=== PATIENT | male | born 1950 | race Caucasian/White ===

== ENCOUNTER → 2018-03-29 11:56 | Outpatient (CLI) | payer MEDICARE, SELFPAY ==
[2018-03-29 14:09] LABS: Absolute Lymphocyte Count 1.31 X10^3/ul (0.83-4.51); Basophil# 0.06 X10^3/uL; Basophil% 0.5 % (0-1); Eosinophil# 0.25 X10^3/uL; Lymphocyte # 1.31 X10^3/ul (4.0); Lymphocyte % 10.6 % (19-41); Mean Corp Hgb Conc 34.1 g/gl (32-36); Mean Corpuscular Hgb 32.4 pg (27.0-32.0); Monocyte% 13.7 % (0-10); Neutrophil # 9.04 X10^3/uL (2.7-7.7); Platelet Count 223 K/mm3 (150-450); RBC Distribution Width CV 12.4 % (11.6-14.6); RBC Distribution Width SD 42.7 fl (35.1-43.9); Red Blood Count 4.63 M/mm3 (4.6-6.2); White Blood Count 12.4 K/mm3 (4.4-11.0)
[2018-03-29 14:10] LABS: Differential Indicated SCAN CRITERIA MET; POSITIVE COUNT NO; POSITIVE DIFFERENTIAL YES; POSITIVE MORPHOLOGY NO
[2018-03-29 14:22] LABS: ALB/GLOB Ratio 0.9 RATIO (0.9-2.4); AST(SGOT) 18 U/L (15-37); Alanine Aminotransfer ALT/SGPT 20 U/L (16-61); Albumin, Serum 3.6 g/dL (3.2-5.0); Alkaline Phosphatase 58 U/L (45-117); Anion Gap 8 (5-15); BUN 14 mg/dL (7-18); BUN/Creat Ratio 13.6 RATIO (10-20); Calcium,Total 9.3 mg/dL (8.5-10.1); Chloride 98 mmol/L (98-107); Cholesterol 96 mg/dL (200); Creatinine, Serum 1.03 mg/dL (0.70-1.30); EST Glomerular Filtration Rate 76 mL/min (>60); Est Glom Filt Rate - Afr Amer 92 mL/min (>60); Glucose 138 mg/dL (74-106); High Density Lipoprotein 33 mg/dL; Potassium 4.2 mmol/L (3.5-5.1); Protein, Total 7.6 g/dL (6.4-8.2); Sodium Level 135 mmol/L (136-145); Thyroid Stim Hormone (TSH) 2.92 uIU/mL (0.358-3.74); Triglycerides 85 mg/dL; Very Low Density Lipoprotein 17 mg/dL (5-40)
[2018-03-30 12:57] LABS: Pathologist Review Reviewed
== END ==
PROVIDERS: Family Provider Family Medicine; PCP Family Medicine; Visit Provider Family Medicine
DX: E78.00 Pure hypercholesterolemia, unspecified (principal); E11.9 Type 2 diabetes mellitus without complications; E03.9 Hypothyroidism, unspecified; J06.9 Acute upper respiratory infection, unspecified
CPT/HCPCS: 36415; 80053; 80061; 84443; 85025

== ENCOUNTER → 2018-11-04 09:02 | Outpatient (CLI) | payer MEDICARE, OTHER, SELFPAY ==
[2018-11-04 10:20] LABS: Hematocrit 45.8 % (40-54); Hemoglobin 15.6 g/dl (13.0-16.5); Mean Corp Hgb Conc 34.1 g/gl (32-36); Mean Corpuscular Hgb 32.4 pg (27.0-32.0); Mean Corpuscular Volume 95.2 fL (80-94); Platelet Count 241 K/mm3 (150-450); RBC Distribution Width CV 12.3 % (11.6-14.6); RBC Distribution Width SD 41.9 fl (35.1-43.9); Red Blood Count 4.81 M/mm3 (4.6-6.2); White Blood Count 7.4 K/mm3 (4.4-11.0)
[2018-11-04 10:23] LABS: Scan Indicated on CBC? Y/N NO
[2018-11-04 10:33] LABS: Hemoglobin A1c 5.8 % (4.2-6.3)
[2018-11-04 10:46] LABS: Cholesterol 102 mg/dL (200); High Density Lipoprotein 33 mg/dL; Thyroid Stim Hormone (TSH) 4.59 uIU/mL (0.358-3.74); Triglycerides 66 mg/dL; Very Low Density Lipoprotein 13 mg/dL (5-40)
[2018-11-04 10:51] LABS: Vitamin D,25 Hydroxy 56.5 ng/mL (29.95-100.01)
== END ==
PROVIDERS: Family Provider Family Medicine; PCP Family Medicine; Visit Provider Family Medicine
DX: E11.9 Type 2 diabetes mellitus without complications (principal); E78.00 Pure hypercholesterolemia, unspecified; E03.9 Hypothyroidism, unspecified
CPT/HCPCS: 36415; 80061; 82306; 83036; 84443; 85027

== ENCOUNTER → 2019-05-02 | Outpatient (CLI) | payer MEDICARE, SELFPAY ==
[2019-05-02 17:54] LABS: ALB/GLOB Ratio 1.2 RATIO (0.9-2.4); AST(SGOT) 23 U/L (15-37); Alanine Aminotransfer ALT/SGPT 29 U/L (16-61); Albumin, Serum 3.9 g/dL (3.2-5.0); Alkaline Phosphatase 53 U/L (45-117); Anion Gap 7 (5-15); BUN 11 mg/dL (7-18); BUN/Creat Ratio 11.7 RATIO (10-20); Calcium,Total 9.3 mg/dL (8.5-10.1); Chloride 107 mmol/L (98-107); Cholesterol 99 mg/dL (200); Creatinine, Serum 0.94 mg/dL (0.70-1.30); EST Glomerular Filtration Rate 85 mL/min (>60); Est Glom Filt Rate - Afr Amer 102 mL/min (>60); Globulin 3.3 g/dL (2.2-4.2); Glucose 109 mg/dL (74-106); High Density Lipoprotein 37 mg/dL; Potassium 4.6 mmol/L (3.5-5.1); Protein, Total 7.2 g/dL (6.4-8.2); Sodium Level 140 mmol/L (136-145); Triglycerides 99 mg/dL; Very Low Density Lipoprotein 20 mg/dL (5-40)
[2019-05-02 18:05] LABS: Microalbumin,Random Urine 5.7 mg/L (NO RANGE EST.); Microalbumin:Creatinine Ratio 6.3 mg/g CRE (<30 mg/g CRE)
== END | disposition home or self-care (01) ==
PROVIDERS: Family Provider Family Medicine; PCP Family Medicine; Visit Provider Family Medicine
DX: I10 Essential (primary) hypertension (principal); E78.00 Pure hypercholesterolemia, unspecified; E88.81 Metabolic syndrome and other insulin resistance
CPT/HCPCS: 36415; 80053; 80061; 82043; 82570

== ENCOUNTER → 2019-11-14 11:39 | Outpatient (CLI) | payer MEDICARE, SELFPAY ==
[2019-11-14 13:53] LABS: Absolute Lymphocyte Count 1.89 X10^3/uL (0.83-4.51); Absolute Neutrophil Count 5.9 X10^3/uL (2.0-7.7); Basophil# 0.13 X10^3/uL; Basophil% 1.4 % (0-1); Eosinophil# 0.28 X10^3/uL; Eosinophils% 3.1 % (0-5); Hematocrit 49.3 % (40-54); Hemoglobin 16.2 g/dL (13.0-16.5); Lymphocyte # 1.89 X10^3/ul (4.0); Lymphocyte % 20.9 % (19-41); Mean Corp Hgb Conc 32.9 g/dL (32-36); Mean Corpuscular Hgb 31.5 pg (27.0-32.0); Mean Corpuscular Volume 95.9 fL (80-94); Mean Platelet Vol. 9.8 fl (6.2-12.0); Monocyte# 0.82 X10^3/uL; Monocyte% 9.1 % (0-10); NRBC Flagged by Analyzer 0 % (0-5); Neutrophil # 5.89 X10^3/uL (2.7-7.7); Neutrophil % 65.2 % (47-70); Platelet Count 244 K/mm3 (150-450); RBC Distribution Width CV 12.4 % (11.6-14.6); RBC Distribution Width SD 44.2 fl (35.1-43.9); Red Blood Count 5.14 M/mm3 (4.6-6.2)
[2019-11-14 14:13] LABS: Vitamin B12 1051 pg/mL (211-911)
[2019-11-14 14:15] LABS: ALB/GLOB Ratio 1.1 RATIO (0.9-2.4); AST(SGOT) 19 U/L (15-37); Alanine Aminotransfer ALT/SGPT 37 U/L (16-61); Albumin, Serum 4.2 g/dL (3.2-5.0); Alkaline Phosphatase 54 U/L (45-117); Anion Gap 2 (5-15); BUN 22 mg/dL (7-18); Calcium,Total 10.5 mg/dL (8.5-10.1); Chloride 105 mmol/L (98-107); Creatinine, Serum 1.22 mg/dL (0.70-1.30); EST Glomerular Filtration Rate 62 mL/min (>60); Est Glom Filt Rate - Afr Amer 75 mL/min (>60); Globulin 3.7 g/dL (2.2-4.2); Glucose 97 mg/dL (74-106); PSA,Total - Annual Screen 0.79 ng/mL (0.00-4.00); Potassium 4.4 mmol/L (3.5-5.1); Protein, Total 7.9 g/dL (6.4-8.2); Sodium Level 137 mmol/L (136-145); T4 Free Direct 1.06 ng/dL (0.76-1.46); Thyroid Stim Hormone (TSH) 8.86 uIU/mL (0.358-3.74)
[2019-11-14 14:16] LABS: Microalbumin,Random Urine 14.3 mg/L (NO RANGE EST.); Microalbumin:Creatinine Ratio 5.4 mg/g CRE (<30 mg/g CRE)
[2019-11-15 14:21] LABS: Vitamin D,25 Hydroxy 61.5 ng/mL (29.95-100.01)
[2019-11-15 14:28] LABS: Magnesium 2.1 mg/dL (1.6-2.6)
[2019-11-15 14:37] LABS: PTHIN 20.3 pg/mL (18.4-80.1)
== END ==
PROVIDERS: Family Provider Family Medicine; PCP Family Medicine; Visit Provider Family Medicine
DX: Z00.00 Encounter for general adult medical examination without abnormal findings (principal); I10 Essential (primary) hypertension; R53.83 Other fatigue; E03.9 Hypothyroidism, unspecified; E83.52 Hypercalcemia; R94.6 Abnormal results of thyroid function studies; Z80.7 Family history of other malignant neoplasms of lymphoid, hematopoietic and related tissues
CPT/HCPCS: 80053; 82043; 82306; 82570; 82607; 83735; 83970; 84153; 84439; 84443; 84481; 85025; G0103

== ENCOUNTER → 2020-05-14 | Outpatient (CLI) | payer MEDICARE, OTHER, SELFPAY ==
[2020-05-14 13:55] LABS: ALB/GLOB Ratio 1.1 RATIO (0.9-2.4); AST(SGOT) 16 U/L (15-37); Alanine Aminotransfer ALT/SGPT 23 U/L (16-61); Albumin, Serum 3.9 g/dL (3.2-5.0); Alkaline Phosphatase 54 U/L (45-117); Anion Gap 6 (5-15); BUN 18 mg/dL (7-18); Calcium,Total 9.5 mg/dL (8.5-10.1); Chloride 103 mmol/L (98-107); Creatinine, Serum 0.95 mg/dL (0.70-1.30); EST Glomerular Filtration Rate 83 mL/min (>60); Est Glom Filt Rate - Afr Amer 100 mL/min (>60); Globulin 3.5 g/dL (2.2-4.2); Glucose 103 mg/dL (74-106); Protein, Total 7.4 g/dL (6.4-8.2); Sodium Level 135 mmol/L (136-145); Thyroid Stim Hormone (TSH) 6.59 uIU/mL (0.358-3.74)
[2020-05-14 14:08] LABS: Microalbumin,Random Urine 8.6 mg/L (NO RANGE EST.)
== END | disposition home or self-care (01) ==
LOC: MFPLAB 10:50
PROVIDERS: PCP Family Medicine; Visit Provider Family Medicine
DX: I10 Essential (primary) hypertension (principal); E03.9 Hypothyroidism, unspecified
CPT/HCPCS: 36415; 80053; 82043; 82570; 84443

== ENCOUNTER → 2020-07-11 13:52 | Outpatient (CLI) | payer MEDICARE, OTHER, SELFPAY ==
[2020-07-11 18:16] LABS: T4 Free Direct 1.27 ng/dL (0.76-1.46); Thyroid Stim Hormone (TSH) 4.15 uIU/mL (0.358-3.74)
== END ==
PROVIDERS: PCP Family Medicine; Referring Provider Family Medicine; Visit Provider Family Medicine
DX: E03.9 Hypothyroidism, unspecified (principal)
CPT/HCPCS: 36415; 84439; 84443

== ENCOUNTER → 2020-11-22 14:45 | Outpatient (CLI) | payer MEDICARE, OTHER, SELFPAY ==
[2020-11-22 18:54] LABS: T4 Free Direct 1.29 ng/dL (0.76-1.46); T4 Total, Thyroxin 9.4 ug/dL (4.5-12.1); Thyroid Stim Hormone (TSH) 1.87 uIU/mL (0.358-3.74)
== END ==
PROVIDERS: PCP Family Medicine; Referring Provider Family Medicine; Visit Provider Family Medicine
DX: E03.9 Hypothyroidism, unspecified (principal)
CPT/HCPCS: 36415; 84436; 84439; 84443

== ENCOUNTER → 2020-12-12 14:59 | Outpatient (CLI) | payer MEDICARE, OTHER, SELFPAY ==
--- NOTE | 2020-12-12 15:02 | CT_ITS ---
STUDY: LOW DOSE CT LUNG CANCER SCREENING REASON FOR EXAM: Male, 70 years old. LUNG CANCER SCREENING. 1PPD 50 YEARS RADIATION DOSAGE (If Supplied By Facility): CTDIvol = ( 3.40 ) mGy, DLP = ( 109.34 ) mGycm TECHNIQUE: No contrast was administered. Low dose technique was utilized (average mAS-38 and kVp 120). 1.25 mm axial source images with a slice interval of 1.25-mm were reconstructed in lung windows. 2.5 mm axial source images with a slice interval of 2.5-mm were reconstructed in lung windows. 5.0 mm axial source images with a slice interval of 5.0-mm were reconstructed in soft tissue windows. Nodule measured using lung windows on PACS and/or independent workstation with automated measurement of minimum and maximum diameter. Nodule measurement reported as average diameter rounded to the nearest whole number. Growth is defined as an increase ins size of greater than 1.5 mm. COMPARISON: None. NODULES: There is a 1.2 cm x 0.7 cm slightly irregular nodule in the posterior segment of the right lower lobe. A linear scar is seen adjacent to this nodule superiorly and anteriorly. Emphysema: Hyperinflation. There is evidence of emphysematous changes in both lungs slightly more prominent in the upper lobes. Minimal linear scarring in the right middle lobe as well as the lingular segment of the left upper lobe. Endobronchial lesion: None Aorta: Atherosclerotic plaque formation of the aortic arch. Coronary arteries: Coronary artery calcification. Mediastinal nodes: Small benign appearing mediastinal lymph nodes. Other chest and abdominal findings: CT/Low Dose CT Lung Screening IMPRESSION: Lung-RADS category 4B - Chest CT with or without contrast, PET/CT and/or tissue sampling can be obtained depending on the probability of malignancy and comorbidities. IMPORTANT NOTES FOR USE: ACR Lung-RADS Version 1.0 Assessment Categories Release Date: March 06, 2014 Category: Coded 0-4 bases on nodule(s) with highest degree of suspicion. Negative screen is defined as categories 1 and 2; a positive screen is defined as categories 3 and 4. Category 3 and 4A nodules that are unchanged on interval CT should be coded as category 2, and individuals returned to screening in 12 months. Category 4X: Category 3 or 4 nodules with additional imaging findings that increase the suspicion of lung cancer, such as spiculation, GGN that doubles in size in 1 year, enlarged lymph notes, etc. Category Modifiers: S (significant finding unrelated to lung cancer) and C (prior history of treated lung cancer) may be added to the 0-4 Lung-RADS Electronically Signed: Michel Herrmann MD at 15:27 EST , Service support ,
== END ==
PROVIDERS: PCP Family Medicine; Referring Provider Family Medicine; Visit Provider Family Medicine
DX: F17.210 Nicotine dependence, cigarettes, uncomplicated (principal); Z12.2 Encounter for screening for malignant neoplasm of respiratory organs
CPT/HCPCS: 71271

== ENCOUNTER → 2021-01-22 14:56 | Outpatient (CLI) | payer MEDICARE, OTHER, SELFPAY ==
--- NOTE | 2021-01-22 15:00 | PET_ITS ---
EXAMINATION: FDG PET/CT INDICATIONS: A 70-year-old male with reported history of pulmonary nodularity. COMPARISON EXAMINATION: CT of the chest report dated 12/12/20 (Synopsis CT of the chest report dated 12/12/20) NON-INDEX LESION SIZE SUV INTERPRETATION Left axilla 1.2 Quantitative criteria for viable neoplasm are not fulfilled TECHNIQUE: Following the intravenous administration of 12.61 mCi of F-18 deoxyglucose via the left antecubital fossa, multiplanar image acquisitions of the neck, chest, abdomen and pelvis to level of mid thigh, obtained at one hour post radiopharmaceutical administration contemporaneously interpreted with the current CT of the neck, chest, abdomen and pelvis to level of mid thigh, dated 01/22/[address] of the chest report dated 12/12/20 reveal: SERUM GLUCOSE LEVEL: 120 mg/dl. HEIGHT: 71 inches. WEIGHT: 190 lbs. FINDINGS: 1. There is no quantitative scintigraphic evidence of abnormal increased glucose metabolism within the context of the right lower lung-right lower lobe to correlate with structural changes noted on review of CT of the thorax dated 01/22/21. 2. Normal physiologic distribution of the radiopharmaceutical is apparent in the hepatic (2.7) and splenic parenchyma, both renal units, bladder and visualized intestinal tract. The visualized portion of the cerebral cortical-subcortical structures demonstrate symmetric and preserved glucose metabolism. Diffuse radiopharmaceutical concentration is noted in all four quadrants of the abdomen and pelvis. Mild increased FDG concentration is observed in the left axilla rendering a calculated maximal standard uptake value of 1.2. The corresponding soft tissue density demonstrates fatty hilus. Quantitative criteria for viable neoplasm are not fulfilled. Facilitated uptake is noted in the left ventricular myocardium commensurate with the [place]. Pertinent CT findings are as follows: CHEST: There are no additional parenchymal densities-nodules defined in the right and left hemithorax. Bilateral axillary soft tissue densities are ametabolic. There is atherosclerotic calcification defined in the thoracic aorta without evidence of dilatation-aneurysm formation. Coronary arterial calcification is defined. Right and left axillary and mediastinal soft tissue is ametabolic. ABDOMEN AND PELVIS: There is atherosclerotic calcification defined in the abdominal aorta without evidence of dilatation-aneurysm formation. Pelvic arterial calcification is observed. Cholelithiasis encountered. Colonic diverticulosis is noted without evidence of diverticulitis. Right and left inguinal soft tissue densities with fatty hilus are ametabolic. Calcified phlebolith formation is noted in the bilateral lower hemipelvis. SKELETAL: Degenerative changes are noted in the cervical, thoracic and lumbar spine without evidence of increased radiopharmaceutical concentration. There is diffuse demineralization identified throughout the axial skeletal structures. PET/PET/CT Tumor Base -Thigh Init IMPRESSION: 1. NEGATIVE EXAMINATION. There is no quantitative scintigraphic evidence of abnormal increased glucose metabolism within the context of the right lower lung-right lower lobe to correlate with structural changes noted on review of CT of the thorax dated 01/22/21. 2. Anatomic stability may be ensured in the nonglucose avid right lower lung-right lower lobe parenchymal density with repeat CT of the thorax in 3-6 months. (Aidan, Seminars in Thoracic and Cardiovascular Surgery 14:292, 2002). 3. Facilitated radiopharmaceutical concentration observed in the left axilla does not fulfill quantitative criteria for viable neoplasm. Electronic Signature Noah Randhawa D.O. Accurate Quantification of SUVs for this report are calculated using the exclusive [employer]? Technology.??Exclusive [place] Patent [employer]? Technology ([place] Patent No. [phone] [id number]). Electronically Signed: Noah Randhawa DO at 15:46 EDT Tel , Service support ,
== END ==
PROVIDERS: PCP Family Medicine; Referring Provider Internal Medicine Pulmonary Disease; Visit Provider Internal Medicine Pulmonary Disease
DX: R91.1 Solitary pulmonary nodule (principal)
CPT/HCPCS: 78815; A9552

== ENCOUNTER → 2021-05-24 10:13 | Outpatient (CLI) | payer MEDICARE, OTHER, SELFPAY ==
[2021-05-24 12:00] LABS: Absolute Lymphocyte Count 1.53 X10^3/uL (0.83-4.51); Absolute Neutrophil Count 4.8 X10^3/uL (2.0-7.7); Basophil# 0.13 X10^3/uL; Basophil% 1.7 % (0-1); Eosinophil# 0.37 X10^3/uL; Eosinophils% 4.8 % (0-5); Hematocrit 46.6 % (40-54); Hemoglobin 15.4 g/dL (13.0-16.5); Lymphocyte # 1.53 X10^3/ul (0.83-4.51); Mean Corpuscular Hgb 31.9 pg (27.0-32.0); Mean Corpuscular Volume 96.5 fL (80-94); Mean Platelet Vol. 9.7 fl (6.2-12.0); Monocyte# 0.74 X10^3/uL; Monocyte% 9.7 % (0-10); NRBC Flagged by Analyzer 0 % (0-5); Neutrophil # 4.84 X10^3/uL (2.7-7.7); Neutrophil % 63.3 % (47-70); Platelet Count 255 K/mm3 (150-450); RBC Distribution Width CV 12.1 % (11.6-14.6); RBC Distribution Width SD 43.6 fl (35.1-43.9); Red Blood Count 4.83 M/mm3 (4.6-6.2); White Blood Count 7.7 K/mm3 (4.4-11.0)
[2021-05-24 12:24] LABS: Microalbumin,Random Urine 5.5 mg/L (NO RANGE EST.); Microalbumin:Creatinine Ratio 6.5 mg/g CRE (<30 mg/g CRE)
[2021-05-24 12:30] LABS: ALB/GLOB Ratio 1.1 RATIO (0.9-2.4); AST(SGOT) 22 U/L (15-37); Alanine Aminotransfer ALT/SGPT 30 U/L (16-61); Albumin, Serum 3.7 g/dL (3.2-5.0); Alkaline Phosphatase 55 U/L (45-117); Anion Gap 4 (5-15); BUN 14 mg/dL (7-18); BUN/Creat Ratio 13.3 RATIO (10-20); Calcium,Total 9.2 mg/dL (8.5-10.1); Chloride 103 mmol/L (98-107); Creatinine, Serum 1.05 mg/dL (0.70-1.30); EST Glomerular Filtration Rate 74 mL/min (>60); Est Glom Filt Rate - Afr Amer 89 mL/min (>60); Globulin 3.5 g/dL (2.2-4.2); Glucose 124 mg/dL (74-106); Potassium 4.4 mmol/L (3.5-5.1); Protein, Total 7.2 g/dL (6.4-8.2); Sodium Level 135 mmol/L (136-145); T4 Free Direct 1.21 ng/dL (0.76-1.46); Thyroid Stim Hormone (TSH) 2.13 uIU/mL (0.358-3.74)
== END ==
PROVIDERS: PCP Family Medicine; Visit Provider Family Medicine
DX: I10 Essential (primary) hypertension (principal); E03.9 Hypothyroidism, unspecified
CPT/HCPCS: 36415; 80053; 82043; 82570; 84439; 84443; 85025

== ENCOUNTER 2021-11-28 11:13 | Outpatient (CLI) | payer MEDICARE, OTHER, SELFPAY ==
[2021-11-28 12:18] LABS: Absolute Lymphocyte Count 1.51 X10^3/uL (0.83-4.51); Absolute Neutrophil Count 4.2 X10^3/uL (2.0-7.7); Basophil# 0.11 X10^3/uL; Basophil% 1.6 % (0-1); Eosinophil# 0.25 X10^3/uL; Eosinophils% 3.7 % (0-5); Hematocrit 45.5 % (40-54); Hemoglobin 15.3 g/dL (13.0-16.5); Lymphocyte # 1.51 X10^3/ul (0.83-4.51); Lymphocyte % 22.2 % (19-41); Mean Corp Hgb Conc 33.6 g/dL (32-36); Mean Corpuscular Hgb 31.8 pg (27.0-32.0); Mean Corpuscular Volume 94.6 fL (80-94); Mean Platelet Vol. 9.5 fl (6.2-12.0); Monocyte# 0.69 X10^3/uL; Monocyte% 10.1 % (0-10); NRBC Flagged by Analyzer 0 % (0-5); Neutrophil # 4.21 X10^3/uL (2.7-7.7); Platelet Count 226 K/mm3 (150-450); RBC Distribution Width CV 12.3 % (11.6-14.6); Red Blood Count 4.81 M/mm3 (4.6-6.2); White Blood Count 6.8 K/mm3 (4.4-11.0)
[2021-11-28 12:59] LABS: Cholesterol 120 mg/dL (200); High Density Lipoprotein 37 mg/dL; Thyroid Stim Hormone (TSH) 7.63 uIU/mL (0.358-3.74); Triglycerides 61 mg/dL; Very Low Density Lipoprotein 12 mg/dL (5-40)
[2021-11-28 13:08] LABS: Hemoglobin A1c 5.4 % (3.8-5.6)
[2021-11-28 16:09] LABS: Microalbumin,Random Urine 12.3 mg/L (NO RANGE EST.); Microalbumin:Creatinine Ratio 6.2 mg/g CRE (<30 mg/g CRE)
== END 2021-11-28 23:59 | disposition short-term general hospital (02) ==
LOC: MFPLAB 11:13
PROVIDERS: PCP Family Medicine; Referring Provider Family Medicine; Visit Provider Family Medicine
DX: J43.9 Emphysema, unspecified (principal); E88.81 Metabolic syndrome and other insulin resistance; E03.9 Hypothyroidism, unspecified; E78.00 Pure hypercholesterolemia, unspecified; I10 Essential (primary) hypertension
CPT/HCPCS: 36415; 80061; 82043; 82570; 83036; 84443; 85025

== ENCOUNTER 2022-05-27 12:10 | Outpatient (CLI) | payer MEDICARE, OTHER, SELFPAY ==
[2022-05-27 12:14] LABS: Bacteria 0 SEEN /hpf (None Seen); Mucous, Urine 0 SEEN /hpf (<or=2+); Red Blood Cells-Urine 0 SEEN /hpf (0-5); Squamous Epithelial Cells - UA 0 SEEN /hpf (0-5); White Blood Cells 0 SEEN /hpf (0-5)
[2022-05-27 15:08] LABS: Color, Urine Yellow (Yellow); Glucose, Dipstick Normal (Normal); Ketone-Dipstick 5 mg/dl (Negative); Leukocyte Esterase-Dipstick 25 /ul (Negative); Nitrite-Dipstick Negative (Negative); Occult Blood-Urine Negative /ul (Negative); Protein-Dipstick Negative (Negative); Urine Bilirubin Dipstick Negative (Negative); Urine Clarity Clear (Clear); Urine Urobilinogen Normal (Normal)
[2022-05-27 16:05] LABS: ALB/GLOB Ratio 1.1 RATIO (0.9-2.4); AST(SGOT) 15 U/L (15-37); Alanine Aminotransfer ALT/SGPT 24 U/L (16-61); Albumin, Serum 3.7 g/dL (3.2-5.0); Alkaline Phosphatase 51 U/L (45-117); Anion Gap 5 (5-15); BUN 19 mg/dL (7-18); BUN/Creat Ratio 19.4 RATIO (10-20); Calcium,Total 9.9 mg/dL (8.5-10.1); Chloride 105 mmol/L (98-107); Creatinine, Serum 0.98 mg/dL (0.70-1.30); EST Glomerular Filtration Rate 79 mL/min (>60); Est Glom Filt Rate - Afr Amer 96 mL/min (>60); Globulin 3.4 g/dL (2.2-4.2); Glucose 109 mg/dL (74-106); PSA,Total- Diagnostic 0.98 ng/mL (0.0-4.0); Protein, Total 7.1 g/dL (6.4-8.2); Sodium Level 140 mmol/L (136-145); T4 Free Direct 1.55 ng/dL (0.76-1.46); Thyroid Stim Hormone (TSH) 0.61 uIU/mL (0.358-3.74)
== END 2022-05-27 23:59 | disposition home or self-care (01) ==
LOC: MFPLAB 12:11
PROVIDERS: PCP Family Medicine; Visit Provider Family Medicine
DX: E88.81 Metabolic syndrome and other insulin resistance (principal); N39.3 Stress incontinence (female) (male); E03.9 Hypothyroidism, unspecified
CPT/HCPCS: 36415; 80053; 81001; 84153; 84439; 84443

== ENCOUNTER → 2022-06-04 | Outpatient (CLI) | payer MEDICARE, OTHER, SELFPAY ==
--- NOTE | 2022-06-04 12:52 | US_ITS ---
EXAM: US RETROPERITONEAL LIMITED, RENAL CLINICAL INDICATION: start and continued male urge incotinance TECHNIQUE: Limited grayscale and color Doppler sonographic evaluation of the retroperitoneum was performed. This report was created using [employer] report Monitor technology. COMPARISON: None. FINDINGS: RIGHT KIDNEY: The right kidney measures 11.2 x 5.5 x 5.7 cm. The right renal cortex measures 1.1 cm. No hydronephrosis. No shadowing calculus. No perinephric collection is demonstrated. LEFT KIDNEY: The left kidney measures 10.9 x 5.7 x 4.5 cm. The left renal cortex measures 1.4 cm. No hydronephrosis. No shadowing calculus. No perinephric collection is demonstrated. BLADDER: The bladder wall measures 5 mm. There are bilateral ureteral jets. The bladder measures 4.1 x 4.4 x 6.6 cm. OTHER FINDINGS: The prostate gland measures 3.3 x 4.5 x 2.9 cm. US/Kidney and Bladder IMPRESSION: No acute findings in the retroperitoneum. Electronically Signed: Gallito Nixon MD at 3:13 EDT ,
== END | disposition home or self-care (01) ==
LOC: US 12:51
PROVIDERS: PCP Family Medicine; Referring Provider Family Medicine; Visit Provider Family Medicine
DX: N39.3 Stress incontinence (female) (male) (principal)
CPT/HCPCS: 76770

== ENCOUNTER → 2022-11-25 | Outpatient (CLI) | payer MEDICARE, OTHER, SELFPAY ==
[2022-11-25 18:39] LABS: Microalbumin,Random Urine 5.5 mg/L (NO RANGE EST.); Microalbumin:Creatinine Ratio 5.5 mg/g CRE (<30 mg/g CRE)
[2022-11-25 19:02] LABS: T4 Free Direct 1.37 ng/dL (0.76-1.46); Thyroid Stim Hormone (TSH) 0.67 uIU/mL (0.358-3.74)
== END | disposition home or self-care (01) ==
LOC: MFPLAB 14:11
PROVIDERS: PCP Family Medicine; Visit Provider Family Medicine
DX: I10 Essential (primary) hypertension (principal); E03.9 Hypothyroidism, unspecified
CPT/HCPCS: 36415; 82043; 82570; 84439; 84443

== ENCOUNTER → 2022-12-15 | Outpatient (CLI) | payer MEDICARE, OTHER, SELFPAY ==
--- NOTE | 2022-12-15 10:57 | US_ITS ---
INDICATION: incontinence EXAMINATION: Ultrasound US Post Void Residual Urine/Bladder TECHNIQUE: Mackenzie scale and color doppler imaging was performed of the urinary bladder. COMPARISON: June 04, 2022 FINDINGS: No stones, masses, or wall thickening. Pre-void volume is 34 mL. Post-void volume is 16 mL. The prostate gland is again visualized. There is partial visualization of what appears to be the prostate gland. There is nonvisualization of the ureteral jet. US/Post Void Residual Bladder IMPRESSION: Within normal limits appearing urinary bladder. Electronically Signed: Alley Jones MD at 12:18 EST ,
== END | disposition home or self-care (01) ==
LOC: US 10:50
PROVIDERS: PCP Family Medicine; Referring Provider Family Medicine; Visit Provider Family Medicine
DX: R32 Unspecified urinary incontinence (principal)
CPT/HCPCS: 51798

== ENCOUNTER → 2023-05-29 | Outpatient (CLI) | payer MEDICARE, OTHER, SELFPAY ==
[2023-05-29 11:45] LABS: Bacteria 0 SEEN /hpf (None Seen); Mucous, Urine 0 SEEN /hpf (<or=2+); Red Blood Cells-Urine 0 SEEN /hpf (0-5); Squamous Epithelial Cells - UA 0 SEEN /hpf (0-5); White Blood Cells 0 SEEN /hpf (0-5)
[2023-05-29 15:12] LABS: Absolute Lymphocyte Count 1.34 X10^3/uL (0.83-4.51); Absolute Neutrophil Count 4.4 X10^3/uL (2.0-7.7); Basophil# 0.09 X10^3/uL; Basophil% 1.3 % (0-1); Eosinophil# 0.17 X10^3/uL; Eosinophils% 2.5 % (0-5); Hematocrit 47.1 % (40-54); Hemoglobin 15.4 g/dL (13.0-16.5); Lymphocyte # 1.34 X10^3/ul (0.83-4.51); Lymphocyte % 19.8 % (19-41); Mean Corp Hgb Conc 32.7 g/dL (32-36); Mean Corpuscular Hgb 32.1 pg (27.0-32.0); Mean Corpuscular Volume 98.1 fL (80-94); Mean Platelet Vol. 10.1 fl (6.2-12.0); Monocyte# 0.72 X10^3/uL; Monocyte% 10.7 % (0-10); NRBC Flagged by Analyzer 0 % (0-5); Neutrophil % 65.1 % (47-70); Platelet Count 241 K/mm3 (150-450); RBC Distribution Width CV 12.2 % (11.6-14.6); RBC Distribution Width SD 44.4 fl (35.1-43.9); White Blood Count 6.8 K/mm3 (4.4-11.0)
[2023-05-29 15:42] LABS: Color, Urine Yellow (Yellow); Glucose, Dipstick Normal (Normal); Ketone-Dipstick Negative (Negative); Leukocyte Esterase-Dipstick Negative /ul (Negative); Nitrite-Dipstick Negative (Negative); Occult Blood-Urine Negative /ul (Negative); Protein-Dipstick Negative (Negative); Specific Gravity, Urine 1.015 (1.002-1.030); Urine Bilirubin Dipstick Negative (Negative); Urine Clarity Clear (Clear); Urine Urobilinogen Normal (Normal)
[2023-05-29 15:47] LABS: Hemoglobin A1c 5.6 % (3.8-5.6)
[2023-05-29 15:51] LABS: ALB/GLOB Ratio 1.2 RATIO (0.9-2.4); AST(SGOT) 16 U/L (15-37); Alanine Aminotransfer ALT/SGPT 22 U/L (16-61); Albumin, Serum 3.8 g/dL (3.2-5.0); Alkaline Phosphatase 63 U/L (45-117); Anion Gap 6 (5-15); BUN 17 mg/dL (7-18); BUN/Creat Ratio 18.2 RATIO (10-20); Calcium,Total 9.2 mg/dL (8.5-10.1); Chloride 103 mmol/L (98-107); Cholesterol 99 mg/dL (200); Creatinine, Serum 0.94 mg/dL (0.70-1.30); EST Glomerular Filtration Rate 84 mL/min (>60); Est Glom Filt Rate - Afr Amer 101 mL/min (>60); Globulin 3.3 g/dL (2.2-4.2); Glucose 102 mg/dL (74-106); High Density Lipoprotein 39 mg/dL; Potassium 4.5 mmol/L (3.5-5.1); Protein, Total 7.1 g/dL (6.4-8.2); Sodium Level 136 mmol/L (136-145); Thyroid Stim Hormone (TSH) 0.52 uIU/mL (0.358-3.74); Triglycerides 82 mg/dL; Very Low Density Lipoprotein 16 mg/dL (5-40)
== END | disposition home or self-care (01) ==
LOC: MFPLAB 10:23
PROVIDERS: PCP Family Medicine; Visit Provider Family Medicine
DX: J43.9 Emphysema, unspecified (principal); I10 Essential (primary) hypertension; E03.9 Hypothyroidism, unspecified; R39.15 Urgency of urination; E88.81 Metabolic syndrome and other insulin resistance
CPT/HCPCS: 36415; 80053; 80061; 81001; 83036; 84443; 85025

== ENCOUNTER → 2023-11-24 | Outpatient (CLI) | payer MEDICARE, OTHER, SELFPAY ==
--- OUTSIDE RECORDS SUMMARY | 2023-11-24 11:43 | XMS RPT_ITS | CCD ---
Author Name Unknown Address [address] [place] [address] Organization [facility] Care Team Providers Care [id number] Engineer Name Role Phone Ashok SANCHEZ, Betzy Boland Primary Care Provider GLADYS HAWTHORNE Attending Unavailable BETZY PULIDO Primary Care Unavailable GEORGIE JARRELL Referring Unavailable ALINA FERNANDES Attending Unavailable BETZY PULIDO Primary Care Unavailable BETZY PULIDO Primary Care Unavailable GEORGIE JARRELL Referring Unavailable Allergies Allergy Classification Reported Allergen(s) Allergy Type Date of Onset Reaction(s) Facility (3 sources) Penicillins; Translations: [PENICILLINS] Drug Allergy 06-11-2007 [facility] Work Phone: (1 source) Penicillins Drug Allergy 06-11-2007 [facility] Work Phone: Medications Completed/Discontinued Medications Medication Drug Class(es) Dates Sig (Normalized) Sig (Original) ascorbic acid 500 mg oral tablet (3 sources) Vitamin C Start: 06-11-2007 take 1 tablet by mouth once daily ascorbic acid (VITAMIN C) 500 mg ORAL Tab Take one(1) tablet daily. 0 0 06/11/2007 Active Problems Active Problems Problem Classification Problem Date Documented Da te Episodic/Chronic Coronary atherosclerosis and other heart disease (1 source) Calcification of coronary artery; Translations: [Atherosclerotic heart disease of solomon coronary artery without angina pectoris] Chronic Diabetes mellitus without complication (3 sources) Type 2 diabetes mellitus; Translations: [Type 2 diabetes mellitus without complications] Onset: 03-06-2011 11-04-2021 Chronic Essential hypertension (3 sources) Essential hypertension; Translations: [Essential (primary) hypertension] 01-07-2021 Chronic Other lower respiratory disease (6 sources) Multiple nodules of lung; Translations: [Other nonspecific abnormal finding of lung field] Onset: 02-06-2022 Episodic Other lower respiratory disease (1 source) Chronic cough; Translations: [Chronic cough] Episodic Other nutritional; endocrine; and metabolic disorders (3 sources) Obesity; Translations: [Obesity, unspecified] Onset: 03-06-2011 03-06-2011 Chronic Substance-related disorders (3 sources) Tobacco dependence, continuous; Translations: [Nicotine dependence, unspecified, with unspecified nicotine-induced disorders] Onset: 08-29-2022 Chronic Thyroid disorders (6 sources) Hypothyroidism; Translations: [Hypothyroidism, unspecified] Onset: 03-06-2011 11-04-2021 Chronic Past or Other Problems Problem Classification Problem Date Documented Da te Episodic/Chronic Other lower respiratory disease (1 source) Other nonspecific abnormal finding of lung field; Translations: [Lung nodules] Onset: 02-06-2022 Episodic Results Test Name Value Interpretation Reference Range Facil ity Vital Signs Date Time Vital Sign Value Performing Clinician Faci lity 08-29-2022 12:42-0400 Body weight 83.92 kg Gladys Hawthorne MD Work Phone: [facility] 08-29-2022 12:42-0400 Diastolic blood pressure 72 mm[Hg] Gladys Hawthorne MD Work Phone: [facility] 08-29-2022 12:42-0400 Heart rate 89 /min Gladys Hawthorne MD Work Phone: [facility] 08-29-2022 12:42-0400 SaO2% (BldA) [Mass fraction] 97 % Gladys Hawthorne MD Work Phone: [facility] 08-29-2022 12:42-0400 Systolic blood pressure 136 mm[Hg] Gladys Hawthorne MD Work Phone: [facility] 02-06-2022 14:47-0400 Body height 181.6 cm Alina Fernandes MD Work Phone: [facility] 02-06-2022 14:47-0400 Body weight 84.82 kg Alina Fernandes MD Work Phone: [facility] 02-06-2022 14:47-0400 Diastolic blood pressure 76 mm[Hg] Alina Fernandes MD Work Phone: [facility] 02-06-2022 14:47-0400 Heart rate 76 /min Alina Fernandes MD Work Phone: [facility] 02-06-2022 14:47-0400 SaO2% (BldA) [Mass fraction] 98 % Alina Fernandes MD Work Phone: [facility] 02-06-2022 14:47-0400 Systolic blood pressure 124 mm[Hg] Alina Fernandes MD Work Phone: [facility] Encounters Encounter Date Encounter Type Care Provider Facility Start: 08-29-2022 End: 08-29-2022 ambulatory GLADYS HAWTHORNE Facility:[facility] Start: 08-29-2022 End: 08-29-2022 Patient encounter procedure Gladys Hawthorne MD Work Phone: Pulmonary Medicine Procedures Date Procedure Procedure Detail Performing Clinician Start: 02-06-2022 Ct thorax w/o contra st material Georgie Jarrell PA-C Work Phone: Plan of Treatment Date Care Activity Detail Author Start: 02-06-2023 BP CONTROLLED (<130/80) BP CONTROLLE D (<130/80) [facility] Start: 02-06-2023 End: 09-28-2023 Ct thorax w/o contrast material CT CHEST WO IVCON Radiology Routine Lung nodules Expected: 02/06/2023, Expires: 09/28/2023 [facility] Work Phone: Immunizations Immunization Date Immunization Notes Care Provider Shawn butterfield 01-06-2021 COVID-19 vaccine (UNSPECIFIED) Ct (I-Stat) Work Phone: [facility] Work Phone: 08-07-2020 influenza, high dose seasonal, preservative-free Ct (I-Stat) Work Phone: [facility] Work Phone: 03-18-2011 pneumococcal polysaccharide vaccine, [address] (I-Stat) Work Phone: [facility] Work Phone: 02-26-2011 tetanus toxoid, redu pilar diphtheria toxoid, and acellular pertussis vaccine, adsorbed Ct (I-Stat) Work Phone: [facility] Work Phone: 09-21-2006 influenza virus vacc ine, unspecified formulation Ct (I-Stat) Work Phone: [facility] Payers Date Payer Category Payer Medicare [id number] 2019 Private Health Insurance [employer] A ETNA MEDICARE SUPPLEMENT [id number] 2019-Present [phone] [address] [address] [place] [address] Indemnity [id number] 2019 Private Health Insurance [employer] A ETNA MEDICARE SUPPLEMENT [id number] 2019-Present [phone] [address] [address] [place] [address] Indemnity [id number] 2013 Medicare MEDICARE MEDICAR E A AND B [id number] 2013-Present [phone] [place] [address] Medicare [id number] 2013 Medicare MEDICARE MEDICAR E A AND B [id number] 2013-Present [phone] [place] [address] Medicare [id number] 2013 Medicare [id number] Social History Date Type Detail Facility Start: 1970 [facility] Start: 1970 History of tobacco use Cigarette Smo ker [facility] Start: 02-06-2022 End: 08-29-2022 Alcohol intake Current drinker of alcohol (finding) [facility] Start: 01-07-2021 History SDOH Alcohol Comment Occasional. [facility] Start: 02-06-2022 End: 08-29-2022 Tobacco Comment 2 packs per week, 02/06/22. TO [facility] Start: 1950 Sex Assigned At Not on file [facility] Start: 01-27-2022 End: 02-06-2022 Exposure to SARS-CoV-2 (event) Not sure [facility] Start: 08-29-2022 Cigarettes smoked cu rrent (pack per day) - Reported 0.5 [facility] Start: 08-29-2022 Tobacco use and exposure Smoke less tobacco non-user [facility] Medical Equipment Procedure Code Equipment Code Equipment Origin al Text Equipment Identifier Dates Start: 03-18-2011 End: 02-06-2022 Clinical Notes 10-10-2021 to 08-29-2022 Gladys Hawthorne MD - 08/29/2022 12:45 PM EDTPatient Shivam Fernandes MD - 02/06/2022 3:01 PM EDTKiRT Marychuy(R) - 02/06/2022 2:00 PM EDT Note Date & Type Note Facility 08-29-2022 Note HNO ID: [id number] Author: Gladys Hawthorne MD Service: ? Author Type: Physician Type: Progress Notes Filed: 08/29/2022 8:08 PM Note Text: . [facility] [place] Note Patient name: Anel Henry PCP: Betzy Pulido MD, MD CC: Lung nodules HPI: Anel Henry 71 year old male current smoker for over 50 years with PMH significant for HTN, DM2, hypothyroidism and pulmonary nodularity. Former patient of Dr. Fernandes. Has a history of multiple pulmonary nodules, largest 8 mm, previous negative PET scan. At last office visit, recommendations for CT of the chest in 1 year which would be due in January 2023. He continues to smoke and has no desire to quit smoking. No significant COPD despite his smoking history. He denies any significant cough, sputum production, wheezing, shortness of breath, chest pain. No recent upper respiratory infections or hospitalizations. DATA: Labs: Imaging / Diagnostic Studies: DATE OF EXAM: Feb 06 2022 2:44PM [facility] 0541 - CT CHEST WO IVCON / EXAMINATION: CHEST CT WITHOUT CONTRAST CLINICAL HISTORY: Lung nodules Comparison: 07/22/2021 CT RESULT: Limitations: None. Lines, tubes, and devices: None. Lung parenchyma and airways: Small nodules appear stable. For example: Mild RIGHT lower lobe nodule 6 x 8 mm unchanged (6:107). Stable 4 mm posterior LEFT upper lobe nodule (6:70). 3 mm LEFT upper lobe nodule (6:63). Curvilinear density RIGHT lower lobe base consistent with atelectasis or fibrosis. Pleural space: No pleural effusion. No pleural thickening. Lower neck, lymph nodes, and mediastinum: The imaged thyroid gland is normal. No lymphadenopathy in the supraclavicular, axillary, mediastinal, or hilar regions. Heart, pericardium, and thoracic vessels: The thoracic aorta and main pulmonary artery are normal in caliber. The cardiac chambers are normal in size. Coronary artery atherosclerotic calcifications are noted, although the study is not optimized for coronary assessment. No pericardial effusion or thickening. Bones and soft tissues: No destructive bone lesion. Chest wall is unremarkable. Upper abdomen stable low-attenuation: Right hepatic density 1.1 cm in diameter suggestive of a cyst. There is cholelithiasis. [employer] (topogram) images: No additional findings. IMPRESSION: Stable small lung nodules. Suggest 1 year follow-up CT There is coronary artery calcification consistent with coronary artery disease. Cholelithiasis Hepatic densities suggestive of a cyst. I personally reviewed images with the patient and agree with the above assessment PAST MEDICAL HISTORY Diagnosis Date Essential hypertension Multiple lung nodules on CT Tinnitus of both ears Type 2 diabetes mellitus (HCC) Unspecified hypothyroidism ALLERGIES Allergen Reactions Penicillins Hives atorvastatin (LIPITOR) 20 mg tablet Take 20 mg by mouth once daily. levothyroxine (SYNTHROID) 125 mcg ORAL tablet Take 1 tablet by mouth once daily. (Patient taking differently: Take 150 mcg by mouth once daily. ) lisinopril-hydrochlorothiazide 10-12.5 mg ORAL per tablet Take 1 tablet by mouth once daily. metFORMIN 500 mg ORAL tablet Take 1 tablet by mouth twice daily. Start with 1 tab once daily for first week then if tolerates 1 tab twice daily with meals. Ringgold-3 Fatty Acids (FISH OIL) 500 mg ORAL Cap Take by mouth once daily. blood sugar diagnostic (ONE TOUCH ULTRA TEST) Misc test strip Use as instructed blood sugar diagnostic (ACCU-CHEK WILFREDO) Misc test strip Test twice daily as needed. Dx 250.02 ibuprofen (ADVIL) 200 mg ORAL tablet Take 400 mg by mouth twice daily as needed. Thorp's Wort 300 mg ORAL Tab Take by mouth once daily. Calcium and Magnesium Carbonates ORAL per tablet Take 1 tablet by mouth once daily. Glucosamine 1,000 mg ORAL Tab Take 2 tablets by mouth once daily. Zinc (CHELATED ZINC) 50 mg ORAL Tab Take by mouth. B Complex Vitamins (SUPER B COMPLEX) ORAL capsule Take 1 capsule by mouth once daily. Multivitamin (DAILY MULTIVITAMIN) ORAL Tab Take one(1) tablet daily. ascorbic acid (VITAMIN C) 500 mg ORAL Tab Take one(1) tablet daily. Social History Tobacco Use Smoking status: Every Day Packs/day: 0.50 Years: 53.00 Pack years: 26.50 Types: Cigarettes Start date: 1970 Smokeless tobacco: Never Tobacco comments: 2 packs per week, 02/06/22. TO Substance Use Topics Alcohol use: Yes Comment: Occasional. Drug use: Never FAMILY HISTORY Problem Relation Age of Onset Detached Retina Mother Breast Cancer Mother brain cancer Heart Father CVA/arthritis/obesity/ETOH/ during procedure for pacemaker implant other (lymphoma) Brother Non-Hodgkins. PAST SURGICAL HISTORY Procedure Laterality Date PAST SURGICAL HISTORY OF 2 fingers on left hand cut PMH, Social history, family history and surgical history reviewed and updated in EMR REVIEW OF SYSTEMS: (more content not included)... [facility] 08-29-2022 History of Presen t illness Narrative Images from the original note were not included. . [facility] [place] Note Patient name: Anel Henry PCP: Betzy Pulido MD, MD CC: Lung nodules HPI: Anel Henry 71 year old male current smoker for over 50 years with PMH significant for HTN, DM2, hypothyroidism and pulmonary nodularity. Former patient of Dr. Fernandes. Has a history of multiple pulmonary nodules, largest 8 mm, previous negative PET scan. At last office visit, recommendations for CT of the chest in 1 year which would be due in January 2023. He continues to smoke and has no desire to quit smoking. No significant COPD despite his smoking history. He denies any significant cough, sputum production, wheezing, shortness of breath, chest pain. No recent upper respiratory infections or hospitalizations. DATA: Labs: Imaging / Diagnostic Studies: DATE OF EXAM: Feb 06 2022 2:44PM [facility] 0541 - CT CHEST WO IVCON / EXAMINATION: CHEST CT WITHOUT CONTRAST CLINICAL HISTORY: Lung nodules Comparison: 07/22/2021 CT RESULT: Limitations: None. Lines, tubes, and devices: None. Lung parenchyma and airways: Small nodules appear stable. For example: Mild RIGHT lower lobe nodule 6 x 8 mm unchanged (6:107). Stable 4 mm posterior LEFT upper lobe nodule (6:70). 3 mm LEFT upper lobe nodule (6:63). Curvilinear density RIGHT lower lobe base consistent with atelectasis or fibrosis. Pleural space: No pleural effusion. No pleural thickening. Lower neck, lymph nodes, and mediastinum: The imaged thyroid gland is normal. No lymphadenopathy in the supraclavicular, axillary, mediastinal, or hilar regions. Heart, pericardium, and thoracic vessels: The thoracic aorta and main pulmonary artery are normal in caliber. The cardiac chambers are normal in size. Coronary artery atherosclerotic calcifications are noted, although the study is not optimized for coronary assessment. No pericardial effusion or thickening. Bones and soft tissues: No destructive bone lesion. Chest wall is unremarkable. Upper abdomen stable low-attenuation: Right hepatic density 1.1 cm in diameter suggestive of a cyst. There is cholelithiasis. Senior Counsel Commercial (topogram) images: No additional findings. IMPRESSION: Stable small lung nodules. Suggest 1 year follow-up CT There is coronary artery calcification consistent with coronary artery disease. Cholelithiasis Hepatic densities suggestive of a cyst. I personally reviewed images with the patient and agree with the above assessment PAST MEDICAL HISTORY Diagnosis Date Essential hypertension Multiple lung nodules on CT Tinnitus of both ears Type 2 diabetes mellitus (HCC) Unspecified hypothyroidism ALLERGIES Allergen Reactions Penicillins Hives atorvastatin (LIPITOR) 20 mg tablet Take 20 mg by mouth once daily. levothyroxine (SYNTHROID) 125 mcg ORAL tablet Take 1 tablet by mouth once daily. (Patient taking differently: Take 150 mcg by mouth once daily. ) lisinopril-hydrochlorothiazide 10-12.5 mg ORAL per tablet Take 1 tablet by mouth once daily. metFORMIN 500 mg ORAL tablet Take 1 tablet by mouth twice daily. Start with 1 tab once daily for first week then if tolerates 1 tab twice daily with meals. Ringgold-3 Fatty Acids (FISH OIL) 500 mg ORAL Cap Take by mouth once daily. blood sugar diagnostic (ONE TOUCH ULTRA TEST) Misc test strip Use as instructed blood sugar diagnostic (ACCU-CHEK WILFREDO) Misc test strip Test twice daily as needed. Dx 250.02 ibuprofen (ADVIL) 200 mg ORAL tablet Take 400 mg by mouth twice daily as needed. Thorp's Wort 300 mg ORAL Tab Take by mouth once daily. Calcium and Magnesium Carbonates ORAL per tablet Take 1 tablet by mouth once daily. Glucosamine 1,000 mg ORAL Tab Take 2 tablets by mouth once daily. Zinc (CHELATED ZINC) 50 mg ORAL Tab Take by mouth. B Complex Vitamins (SUPER B COMPLEX) ORAL capsule Take 1 capsule by mouth once daily. Multivitamin (DAILY MULTIVITAMIN) ORAL Tab Take one(1) tablet daily. ascorbic acid (VITAMIN C) 500 mg ORAL Tab Take one(1) tablet daily. Social History Tobacco Use Smoking status: Every Day Packs/day: 0.50 Years: 53.00 Pack years: 26.50 Types: Cigarettes Start date: 1968 Smokeless tobacco: Never Tobacco comments: 2 packs per week, 02/06/22. TO Substance Use Topics Alcohol use: Yes Comment: Occasional. Drug use: Never FAMILY HISTORY Problem Relation Age of Onset Detached Retina Mother Breast Cancer Mother brain cancer Heart Father CVA/arthritis/obesity/ETOH/ during procedure for pacemaker implant other (lymphoma) Brother Non-Hodgkins. PAST SURGICAL HISTORY Procedure Laterality Date PAST SURGICAL HISTORY OF 2 fingers on left hand cut PMH, Social history, family history and surgical history reviewed and updated in EMR REVIEW OF SYSTEMS: CONSTITUTIONAL: No fevers, chills, nightsweats, unintended weight loss CARDIOVASCULAR: No chest pain, dyspnea, palpitations. Some edema. Calcifications noted on CT of chest PULM: See HPI NEURO: No new balance problems, peripheral weakness/paresthesias or numbness of concern. MUSC-SKEL: No new joint pain, swelling, or erythema. INTEGUMENTARY: No new skin changes or rashes PHYSICAL EXAMINATION: BP 136/72 Pulse 89 Wt 185 lb (83.9kg) SpO2 97% General Appearance: Age appropriate, elderly male NAD Skin: Skin color, texture, turgor normal, no suspicious rashes or lesions. Head: Normocephalic, no masses, lesions, tenderness or abnormalities. KARLUK/hearing aids Eyes: Sclera, conjunctiva normal Neck: No JVD, no masses, or adenopathy Lungs: Not labored, no wheezes or crackles Heart: RRR, no murmur Extremities: Mild edema, no clubbing Lymph Nodes: No cervical lymphadenopathy and No supraclavicular lymphadenopathy. Assessment/Plan: Lung nodules -Stable nodularity most consistent with benign etiology -Due for follow-up CT of chest in January of this year which will be 2 years surveillance -If pulmonary nodules are stable, he would qualify yearly low-dose chest CT for cancer screening based on his age and smoking history Cigarette smoker -Current greater than [id number] smoker without sequelae COPD -Smoking cessation strongly encouraged 3. Coronary artery calcification seen on CT chest -Recommend calcium scoring CT and cardiology referral Gladys Hawthorne MD [facility] [place] documented in this encounter [facility] 02-06-2022 Note HNO ID: [id number] Author: Alina Fernandes MD Service: ? Author Type: Physician Type: Progress Notes Filed: 02/11/2022 10:25 AM Note Text: [facility] [place], 02/06/2022: Name: Anel Henry : 1950 INTERVAL HISTORY: Since the 08/09/2021 Pulmonary clinic visit, no chage in cough attributed to allergic post nasal drip. No purulent sputum or hemoptysis. No change in exertional dyspnea with lifting and carrying. Still smoking, 2 packs per week currently. Problem list, PMH, PSH, FAMH, SOCH: Reviewed with patient today, and updated accordingly. Immunizations reviewed today. Allergies reviewed and updated, and medications reconciled today. PHYSICAL EXAMINATION: BP 124/76 (BP Site: Right Arm, BP Position: Sitting, BP Cuff Size: Regular Adult) Pulse 76 Ht 181.6 cm (5' 11.5 ) Wt 84.8 kg (187 lb) SpO2 98% BMI 25.72 kg/m? Gen: No acute distress. Cooperative with examination. Appears healthy and well. ENT: Sclerae clear. Nares clear. Oral hygeine/dentition good. Pharynx clear. No halitosis. Resp: No stridor, accessory respiratory muscle use, supra-sternal retractions. A-P diameter normal. CV: Regular rythm. Radial pulses normal. Abd: Not distended. MSK: No kyphoscoliosis. Ext: Well perfused. No clubbing, cyanosis, edema, sclerodactyly, Raynaud's. Skin: Color normal. Endo: No goiter, exophthalmos, onycholysis. Neuro: Mental status normal. Affect normal. Muscle strength symmetrical. No tremor. DATA REVIEW: CT chest, 02/06/2022: Comparison: 07/22/2021 CT IMPRESSION: Stable small lung nodules. ?Suggest 1 year follow-up CT There is coronary artery calcification consistent with coronary artery disease. Cholelithiasis Hepatic densities suggestive of a cyst. . I have personally and independently reviewed the chest CT scans dated 07/22/2021 and 02/06/2022 and I concur with the findings as described. TO MEDICAL DECISION MAKIN. Multiple subcentimeter pulmonary nodules, non-calcified.?Initially appreciated on screening CT chest at [facility] 12/12/2020. PET scan negative January,. CT chest 07/22/[address] chest today also appears stable. - Surveillance CT chest in 12 months, 01/2023. 2. Tobacco use disorder, continuous. Has significantly reduced, but not eliminated cigarette consumption. I discussed the hazards of smoking, benefits of quitting, therapies and programs available to assist in quitting; including nicotine withdrawal, habit and psychological dependence. Also discussed the potential values of nicotine replacement, behavioral modification programs and other pharmacologic therapies. - The patient did NOT commit to smoking cessation at this time. I addressed the questions of the patient, and he expressed understanding and acceptance of my answers. Alina Fernandes MD, [facility] [place] [facility] [address] [place] [address] P: [phone] F: [phone] [email or web address] [facility] 02-06-2022 Note HNO ID: [id number] Author: RT Shayna(R) Service: ? Author Type: Mailing Specialist Type: Progress Notes Filed: 02/06/2022 4:01 PM Note Text: Radiology Service Progress Note PATIENT NAME: Anel Henry DATE OF SERVICE: February 06, 2022 TIME: 4:01 PM PATIENT IDENTITY VERIFICATION COMPLETED USING TWO (2) IDENTIFIERS: Name and Date of confirmed by patient verbally. FALL SCREENING: Has the patient had 2 falls in the last year or 1 fall with injury or currently using an Ambulatory Assistive Device (Walker, Cane, Wheelchair, Crutches, etc.)? No PATIENT GENDER DATA: Male PATIENT RELEVANT IMPLANT DATA REVIEWED: Not Applicable RADIOLOGY DEPARTMENT: CT; Exam(s) Completed: Chest PERIPHERAL IV DATA: Not applicable SIGNED BY: RT Felicita(R) February 06, 2022 4:01 PM [facility] 02-06-2022 Instructions Alina Fernandes MD - 02/06/2022 3:32 PM EDT MEDICAL DECISION MAKING: Multiple subcentimeter pulmonary nodules, non-calcified. Initially appreciated on screening CT chest at [facility] 12/12/2020. PET scan negative January,. CT chest 07/22/[address] chest today also appears stable. - Surveillance CT chest in 12 months, 01/2023. Sooner if needed. Alina Fernandes MD, [facility] [address] [place] [address] P: [phone] F: [phone] documented in this encounter [facility] 02-06-2022 History of Presen t illness Narrative [facility], 02/06/2022: Name: Anel Henry : 1950 INTERVAL HISTORY: Since the 08/09/2021 Pulmonary clinic visit, no chage in cough attributed to allergic post nasal drip. No purulent sputum or hemoptysis. No change in exertional dyspnea with lifting and carrying. Still smoking, 2 packs per week currently. Problem list, PMH, PSH, FAMH, SOCH: Reviewed with patient today, and updated accordingly. Immunizations reviewed today. Allergies reviewed and updated, and medications reconciled today. PHYSICAL EXAMINATION: BP 124/76 (BP Site: Right Arm, BP Position: Sitting, BP Cuff Size: Regular Adult) Pulse 76 Ht 181.6 cm (5' 11.5 ) Wt 84.8 kg (187 lb) SpO2 98% BMI 25.72 kg/m Gen: No acute distress. Cooperative with examination. Appears healthy and well. ENT: Sclerae clear. Nares clear. Oral hygeine/dentition good. Pharynx clear. No halitosis. Resp: No stridor, accessory respiratory muscle use, supra-sternal retractions. A-P diameter normal. CV: Regular rythm. Radial pulses normal. Abd: Not distended. MSK: No kyphoscoliosis. Ext: Well perfused. No clubbing, cyanosis, edema, sclerodactyly, Raynaud's. Skin: Color normal. Endo: No goiter, exophthalmos, onycholysis. Neuro: Mental status normal. Affect normal. Muscle strength symmetrical. No tremor. DATA REVIEW: CT chest, 02/06/2022: Comparison: 07/22/2021 CT IMPRESSION: Stable small lung nodules. Suggest 1 year follow-up CT There is coronary artery calcification consistent with coronary artery disease. Cholelithiasis Hepatic densities suggestive of a cyst. . I have personally and independently reviewed the chest CT scans dated 07/22/2021 and 02/06/2022 and I concur with the findings as described. TO MEDICAL DECISION MAKIN. Multiple subcentimeter pulmonary nodules, non-calcified. Initially appreciated on screening CT chest at [facility] 12/12/2020. PET scan negative January,. CT chest 07/22/[address] chest today also appears stable. - Surveillance CT chest in 12 months, 01/2023. 2. Tobacco use disorder, continuous. Has significantly reduced, but not eliminated cigarette consumption. I discussed the hazards of smoking, benefits of quitting, therapies and programs available to assist in quitting; including nicotine withdrawal, habit and psychological dependence. Also discussed the potential values of nicotine replacement, behavioral modification programs and other pharmacologic therapies. - The patient did NOT commit to smoking cessation at this time. I addressed the questions of the patient, and he expressed understanding and acceptance of my answers. Alina Fernandes MD, [facility] Respiratory [facility] [address] [place] [id number] P: [phone] F: [phone] [email or web address] documented in this encounter [facility] 02-06-2022 History of Presen t illness Narrative Radiology Service Progress Note PATIENT NAME: Anel Henry DATE OF SERVICE: February 06, 2022 TIME: 4:01 PM PATIENT IDENTITY VERIFICATION COMPLETED USING TWO (2) IDENTIFIERS: Name and Date of confirmed by patient verbally. FALL SCREENING: Has the patient had 2 falls in the last year or 1 fall with injury or currently using an Ambulatory Assistive Device (Walker, Cane, Wheelchair, Crutches, etc.)? No PATIENT GENDER DATA: Male PATIENT RELEVANT IMPLANT DATA REVIEWED: Not Applicable RADIOLOGY DEPARTMENT: CT; Exam(s) Completed: Chest PERIPHERAL IV DATA: Not applicable SIGNED BY: RT Felicita(R) February 06, 2022 4:01 PM documented in this encounter [facility] 10-10-2021 Note HNO ID: [id number] Author: Shelli Manrique PA-C Service: ? Author Type: Physician Machine Wedger Type: Progress Notes Filed: 10/10/2021 2:51 PM Note Text: Actionable Findings Registry I am following up on this actionable finding at the direction of the tangirnaq. Patient was found previously to have an abnormal CT chest. Repeat CT chest was recommended and is scheduled. Will close this out of the actionable findings registry. Actionable Findings follow up status: Complete Shelli Manrique PA-C October 10, 2021 2:50 PM [facility] 10-10-2021 Note Patient Outreach (UR GDIS) ANEL HENRY ([id number]) 1950 M Date Time Provider Department 10/10/21 SHELLI MANRIQUE During your visit today, we recorded the following information about you: Shelli Manrique PA-C 10/10/2021 2:51 PM Signed Actionable Findings Registry I am following up on this actionable finding at the direction of the tangirnaq. Patient was found previously to have an abnormal CT chest. Repeat CT chest was recommended and is scheduled. Will close this out of the actionable findings registry. Actionable Findings follow up status: Complete Shelli Manrique PA-C October 10, 2021 2:50 PM Allergies As of Date: 10/10/2021 Noted Allergy Reaction PENICILLINS 06/11/2007 4 - Hives Date Reviewed: 08/09/2021 Reviewed by: Georgie Jarrell PA-C - Fully Assessed Reason for Visit: Actionable Findings Follow Up [3985] Prescriptions as of 10/10/2021 - atorvastatin (LIPITOR) 20 mg tablet Take 20 mg by mouth once daily. - simvastatin (ZOCOR) 20 mg ORAL tablet Take 1 tablet by mouth daily at bedtime. - levothyroxine (SYNTHROID) 125 mcg ORAL tablet Take 1 tablet by mouth once daily. - lisinopril-hydrochlorothiazide 10-12.5 mg ORAL per tablet Take 1 tablet by mouth once daily. - metFORMIN 500 mg ORAL tablet Take 1 tablet by mouth twice daily. Start with 1 tab once daily for first week then if tolerates 1 tab twice daily with meals. - Ringgold-3 Fatty Acids (FISH OIL) 500 mg ORAL Cap Take by mouth once daily. - Lancets (ONE TOUCH ULTRASOFT LANCETS) Misc lancets Use as instructed - blood sugar diagnostic (ONE TOUCH ULTRA TEST) Misc test strip Use as instructed - blood sugar diagnostic (ACCU-CHEK WILFREDO) Misc test strip Test twice daily as needed. Dx 250.02 - Lancets (ACCU-CHEK MULTICLIX LANCET) [facility] lancets Use as instructed - ibuprofen (ADVIL) 200 mg ORAL tablet Take 400 mg by mouth twice daily as needed. - Stephenie's Wort 300 mg ORAL Tab Take by mouth once daily. - Calcium and Magnesium Carbonates ORAL per tablet Take 1 tablet by mouth once daily. - Glucosamine 1,000 mg ORAL Tab Take 2 tablets by mouth once daily. - Zinc (CHELATED ZINC) 50 mg ORAL Tab Take by mouth. - B Complex Vitamins (SUPER B COMPLEX) ORAL capsule Take 1 capsule by mouth once daily. - mupirocin calcium(BACTROBAN 2 % TOPICAL CREAM) Apply to affected area(s) three(3) times daily. - Multivitamin (DAILY MULTIVITAMIN) ORAL Tab Take one(1) tablet daily. - ascorbic acid (VITAMIN C) 500 mg ORAL Tab Take one(1) tablet daily. Problem List As Of Date 10/10/2021 Noted Resolved Hypothyroidism [E03.9] 03/06/2011 Type 2 diabetes mellitus (HCC) [E11.9] 03/06/2011 Obesity [E66.9] 03/06/2011 Unspecified hypothyroidism [E03.9] Essential hypertension [I10] Encounter Status:Closed by SHELLI MANRIQUE on 10/10/21 [facility] Lung [facility]- Primary Other nonspecific abnormal finding of lung field Chronic cough Cough Tobacco use disorder, continuous Tobacco use disorder [facility] Lung nodules- Primary Other nonspecific abnormal finding of lung field Cigarette smoker Tobacco use disorder Coronary artery calcification seen on CAT scan Coronary atherosclerosis of unspecified type of vessel, solomon or graft documented in this encounter [facility] Reason for Referral Specialty Diagnoses / Procedures Referred By Lizzette dumont Referred To Contact CT IMAGING Diagnoses Lung nodules Procedures CT CHEST WO IVCON CAT SCAN OF CHEST Georgie Jarrell PA-C [address] [address] [address] Imaging Referral ID Status Reason Start Date Expiration Date V isits Requested Visits Authorized [id number] Closed Auto-Generate d Referral 02/07/2022 09/08/2022 1 1 Specialty Diagnoses / Procedures Referred By Contac t Referred To Contact CT IMAGING Diagnoses Lung nodules Procedures CT CHEST WO IVCON DIAGNOSTIC COMPUTED TOMOGRAPHY THORAX W/O CNTRST Alina Fernandes MD [address] [place] [address] Ct Imaging Referral ID Status Reason Start Date Expiration Date Visits Requested Visits Authorized [id number] Pending Review Auto-Generat ed Referral 01/26/2023 03/08/2023 1 1 Specialty Diagnoses / Procedures Referred By Contac t Referred To Contact CT IMAGING Diagnoses Lung nodules Procedures CT CHEST WO IVCON DIAGNOSTIC COMPUTED TOMOGRAPHY THORAX W/O CNTRST Gladys Hawthorne MD [address] [place] [address] Ct Imaging Referral ID Status Reason Start Date Expiration Date Visits Requested Visits Authorized [id number] Pending Review Auto-Generat ed Referral 02/06/2023 09/28/2023 1 1 Summary Purpose Family History No Family History Records Found Advance Directives No Advanced Directives Records Found Additional Source Comments Source Comments (unrecognize d section and content) In the event this informatio n is protected by the Federal Confidentiality of Alcohol and Drug Abuse Patient Records regulations: The Federal rules restrict any use of the information to criminally investigate or prosecute any alcohol or drug abuse patient.[facility] the event this information is protected by the Federal Confidentiality of Alcohol and Drug Abuse Patient Records regulations: The Federal rules restrict any use of the information to criminally investigate or prosecute any alcohol or drug abuse patient.[facility] the event this information is protected by the Federal Confidentiality of Alcohol and Drug Abuse Patient Records regulations: The Federal rules restrict any use of the information to criminally investigate or prosecute any alcohol or drug abuse patient.[facility] Reason for Visit (unrecogniz ed section and content) Specialty Diagnoses / Procedures Referred By Lizzette dumont Referred To Contact CT IMAGING Diagnoses Lung nodules Procedures CT CHEST WO IVCON CAT SCAN OF CHEST Georgie Jarrell PA-C [address] [address] [address] Imaging Referral ID Status Reason Start Date Expiration Date V isits Requested Visits Authorized [id number] Closed Auto-Generate d Referral 02/07/2022 09/08/2022 1 1 Reason Comments Nodule Care Teams (unrecognized sec tion and content) J2Ee Engineer Relationship Specialty Start Date End Date Betzy Pulido MD PCP - General Family Practice 05/27/12 J2Ee Engineer Relationship Specialty Start Date End Date Betzy Pulido MD PCP - General Family Medicine 05/27/12 (unrecognized sect ion and content) No Status Records Found INFORMATION SOURCE (unrecogn ized section and content) FOR RECORDS PERTAINING TO PATIENTS WHO ARE OR HAVE BEEN ENROLLED IN A CHEMICAL DEPENDENCY/SUBSTANCEABUSE PROGRAM, SOME INFORMATION MAY BE OMITTED. This clinical summary was aggregated from multiple sources. Caution should be exercised in using it in the provision of clinical care. This summary normalizes information from multiple sources, and as a consequence, information in this document may materially change the coding, format and clinical context of patient data. In addition, data may be omitted in some cases. CLINICAL DECISIONS SHOULD BE BASED ON THE PRIMARY CLINICAL RECORDS. [facility]. provides no warranty or guarantee of the accuracy or completeness of information in this document.
[2023-11-24 12:22] LABS: Absolute Lymphocyte Count 1.67 X10^3/uL (0.83-4.51); Absolute Neutrophil Count 7.5 X10^3/uL (2.0-7.7); Basophil# 0.14 X10^3/uL; Basophil% 1.3 % (0-1); Eosinophil# 0.25 X10^3/uL; Eosinophils% 2.3 % (0-5); Hematocrit 46.8 % (40-54); Lymphocyte # 1.67 X10^3/ul (0.83-4.51); Lymphocyte % 15.7 % (19-41); Mean Corp Hgb Conc 32.1 g/dL (32-36); Mean Corpuscular Hgb 31.5 pg (27.0-32.0); Mean Corpuscular Volume 98.3 fL (80-94); Mean Platelet Vol. 9.8 fl (6.2-12.0); Monocyte# 0.97 X10^3/uL; Monocyte% 9.1 % (0-10); NRBC Flagged by Analyzer 0 % (0-5); Neutrophil # 7.53 X10^3/uL (2.7-7.7); Neutrophil % 70.8 % (47-70); Platelet Count 242 K/mm3 (150-450); RBC Distribution Width CV 12.5 % (11.6-14.6); RBC Distribution Width SD 45.4 fl (35.1-43.9); Red Blood Count 4.76 M/mm3 (4.6-6.2); White Blood Count 10.6 K/mm3 (4.4-11.0)
[2023-11-24 12:59] LABS: ALB/GLOB Ratio 1.1 RATIO (0.9-2.4); AST(SGOT) 16 U/L (15-37); Alanine Aminotransfer ALT/SGPT 18 U/L (16-61); Albumin, Serum 3.8 g/dL (3.2-5.0); Alkaline Phosphatase 57 U/L (45-117); Anion Gap 4 (5-15); BUN 17 mg/dL (7-18); BUN/Creat Ratio 15.7 RATIO (10-20); Calcium,Total 9.5 mg/dL (8.5-10.1); Chloride 107 mmol/L (98-107); Creatinine, Serum 1.08 mg/dL (0.70-1.30); EST Glomerular Filtration Rate 71 mL/min (>60); Est Glom Filt Rate - Afr Amer 86 mL/min (>60); Globulin 3.5 g/dL (2.2-4.2); Glucose 104 mg/dL (74-106); Potassium 4.2 mmol/L (3.5-5.1); Protein, Total 7.3 g/dL (6.4-8.2); Sodium Level 138 mmol/L (136-145)
== END | disposition home or self-care (01) ==
LOC: MFPLAB 11:01
PROVIDERS: PCP Family Medicine; Visit Provider Family Medicine
DX: I10 Essential (primary) hypertension (principal); J43.9 Emphysema, unspecified
CPT/HCPCS: 36415; 80053; 85025

== ENCOUNTER → 2023-12-01 | Outpatient (CLI) | payer MEDICARE, OTHER, SELFPAY ==
--- NOTE | 2023-12-01 13:44 | CT_ITS ---
STUDY: LOW DOSE CT LUNG CANCER SCREENING REASON FOR EXAM: Male, 73 years old. screening due to and gt; 30 pack year, ongoing nicotine/tobacco use RADIATION DOSAGE (If Supplied By Facility): CTDIvol = ( 3.02 ) mGy, DLP = ( 107.59 ) mGycm TECHNIQUE: No contrast was administered. Low dose technique was utilized (average mAS-38 and kVp 120). 1.25 mm axial source images with a slice interval of 1.25-mm were reconstructed in lung windows. 2.5 mm axial source images with a slice interval of 2.5-mm were reconstructed in lung windows. 5.0 mm axial source images with a slice interval of 5.0-mm were reconstructed in soft tissue windows. COMPARISON: Comparison is made with prior study of December 12, 2020. NODULES: Stable 5.3 mm well-defined nodule in the superior segment of the right upper lobe as seen on axial image #144. Since prior study, there has been progression of the pleural based nodule in the right lower lobe abutting the pleural surface. Focal calcification is seen along its anterior portion. This nodule presently measures 1.6 cm x 1.3 cm. A PET scan is recommended for further evaluation. Emphysema: Hyperinflation. Emphysematous changes. Endobronchial lesion: None Aorta: Atherosclerotic plaque formation of the aortic arch CORONARY ARTERIES: Coronary artery calcification is seen. Heart: Unremarkable Pulmonary artery: Unremarkable Mediastinal nodes: Small mediastinal lymph nodes. Other chest and abdominal findings: CT/Low Dose CT Lung Screening IMPRESSION: Lung-RADS category 4B - Chest CT with or without contrast, PET/CT and/or tissue sampling can be obtained depending on the probability of malignancy and comorbidities. IMPORTANT NOTES FOR USE: ACR Lung-RADS Version 1.1 Assessment Categories Release Date: 2018 Category: Coded 0-4 bases on nodule(s) with highest degree of suspicion. Negative screen is defined as categories 1 and 2; a positive screen is defined as categories 3 and 4. Category 3 and 4A nodules that are unchanged on interval CT should be coded as category 2, and individuals returned to screening in 12 months. Category 4X: Category 3 or 4 nodules with additional imaging findings that increase the suspicion of lung cancer, such as spiculation, GGN that doubles in size in 1 year, enlarged lymph notes, etc. Category Modifiers: S (significant finding unrelated to lung cancer) Electronically Signed: Michel Herrmann MD at 15:42 EST ,
--- OUTSIDE RECORDS SUMMARY | 2023-12-01 14:07 | XMS RPT_ITS | CCD ---
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 Supervisor Name Role Phone Ashok SANCHEZ, Betzy Boland Primary Care Provider GLADYS HAWTHORNE Attending Unavailable BETZY PULIDO Primary Care Unavailable GEORGIE JARRELL Referring Unavailable ALINA FERNANDES Attending Unavailable BETZY PULIDO Primary Care Unavailable BETZY PULIDO Primary Care Unavailable GEORGIE JARRELL Referring Unavailable Allergies Allergy Classification Reported Allergen(s) Allergy Type Date of Onset Reaction(s) Facility (3 sources) Penicillins; Translations: [PENICILLINS] Drug Allergy 06-11-2007 [facility] Work Phone: (1 source) Penicillins Drug Allergy 06-11-2007 [facility] Work Phone: Medications Completed/Discontinued Medications Medication Drug [...] coronary artery; Translations: [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] Chronic Diabetes [...] 83.92 kg Gladys Hawthorne MD Work Phone: [facility] 08-29-2022 12:42-0400 Diastolic blood pressure 72 mm[Hg] Gladys Hawthorne MD Work Phone: [facility] 08-29-2022 12:42-0400 Heart rate 89 /min Gladys Hawthorne MD Work Phone: [facility] 08-29-2022 12:42-0400 SaO2% (BldA) [Mass fraction] 97 % Gladys Hawthorne MD Work Phone: [facility] 08-29-2022 12:42-0400 Systolic blood pressure 136 mm[Hg] Gladys Hawthorne MD Work Phone: [facility] 02-06-2022 14:47-0400 Body height 181.6 cm Alina Fernandes MD Work Phone: [facility] 02-06-2022 14:47-0400 Body weight 84.82 kg Alina Fernandes MD Work Phone: [facility] 02-06-2022 14:47-0400 Diastolic blood pressure 76 mm[Hg] Alina Fernandes MD Work Phone: [facility] 02-06-2022 14:47-0400 Heart rate 76 /min Alina Fernandes MD Work Phone: [facility] 02-06-2022 14:47-0400 SaO2% (BldA) [Mass fraction] 98 % Alina Fernandes MD Work Phone: [facility] 02-06-2022 14:47-0400 Systolic blood pressure 124 mm[Hg] Alina Fernandes MD Work Phone: [facility] Encounters Encounter Date Encounter Type Care Provider Facility Start: 08-29-2022 End: 08-29-2022 ambulatory GLADYS HAWTHORNE Facility:[facility] Start: 08-29-2022 End: 08-29-2022 Patient encounter procedure Gladys Hawthorne MD Work Phone: Pulmonary Medicine Procedures Date Procedure Procedure Detail Performing Clinician Start: 02-06-2022 Ct thorax w/o contra st material Georgie Jarrell PA-C Work Phone: Plan of Treatment Date Care Activity Detail Author Start: 02-06-2023 BP CONTROLLED (<130/80) BP CONTROLLE D (<130/80) [facility] Start: 02-06-2023 End: 09-28-2023 Ct thorax w/o contrast material CT CHEST WO IVCON Radiology Routine Lung nodules Expected: 02/06/2023, Expires: 09/28/2023 [facility] Work Phone: Immunizations Immunization Date Immunization Notes Care Provider Shawn butterfield 01-06-2021 COVID-19 vaccine (UNSPECIFIED) Ct (I-Stat) Work Phone: [facility] Work Phone: 08-07-2020 influenza, high dose seasonal, preservative-free Ct (I-Stat) Work Phone: [facility] Work Phone: 03-18-2011 pneumococcal polysaccharide vaccine, [address] (I-Stat) Work Phone: [facility] Work Phone: 02-26-2011 tetanus toxoid, redu pilar diphtheria toxoid, and acellular pertussis vaccine, adsorbed Ct (I-Stat) Work Phone: [facility] Work Phone: 09-21-2006 influenza virus vacc ine, unspecified formulation Ct (I-Stat) Work Phone: [facility] Payers Date Payer Category Payer Medicare [id number] 2019 Private Health Insurance [employer]ET[employer] A ETNA MEDICARE SUPPLEMENT [id number] 2019-Present [phone] [address] [address] [place] [address] Indemnity [id number] 2019 Private Health Insurance AET[employer] A ETNA MEDICARE SUPPLEMENT [id number] 2019-Present [phone] [address] [address] [place] [address] Indemnity [id number] 2013 Medicare MEDICARE MEDICAR E A AND B [id number] 2013-Present [phone] [place] [address] Medicare [id number] 2013 Medicare MEDICARE MEDICAR E A AND B [id number] 2013-Present [phone] [place] [address] Medicare [id number] 2013 Medicare [id number] Social History Date Type Detail [facility] Start: [facility] Start: 1970 History of tobacco use Cigarette Smo ker [facility] Start: 02-06-2022 End: 08-29-2022 Alcohol intake Current drinker of alcohol (finding) [facility] Start: 01-07-2021 History SDOH Alcohol Comment Occasional. [facility] Start: 02-06-2022 End: 08-29-2022 Tobacco Comment 2 packs per week, 02/06/22. TO [facility] Start: 1950 Sex Assigned At Not on file C [facility] Start: 01-27-2022 End: 02-06-2022 Exposure to SARS-CoV-2 (event) Not sure [facility] Start: 08-29-2022 Cigarettes smoked cu rrent (pack per day) - Reported 0.5 [facility] Start: 08-29-2022 Tobacco use and exposure Smoke less tobacco non-user [facility] Medical Equipment Procedure Code Equipment Code Equipment Origin al Text Equipment Identifier Dates Start: 03-18-2011 End: 02-06-2022 Clinical Notes 10-10-2021 to 08-29-2022 Gladys Hawthorne MD - 08/29/2022 12:45 PM EDTPatient Shivam Fernandes MD - 02/06/2022 3:01 PM EDTKiRT Marychuy(R) - 02/06/2022 2:00 PM EDT Note Date & Type Note Facility 08-29-2022 Note HNO ID: [id number] Author: Gladys Hawthorne MD Service: ? Author Type: Physician Type: Progress Notes Filed: 08/29/2022 8:08 PM Note Text: . [facility] [place] Note Patient name: Anel Henry PCP: Betzy [...] DATE OF EXAM: Feb 06 2022 2:44PM [facility] 0541 - CT CHEST WO IVCON / [...] suggestive of a cyst. There is cholelithiasis. 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 IMPRESSION: Stable [...] tolerates 1 tab twice daily with meals. Monterey-3 Fatty Acids (FISH OIL) 500 mg ORAL Cap Take by mouth once daily. blood sugar diagnostic (ONE TOUCH ULTRA TEST) Misc test strip Use as instructed blood sugar diagnostic (ACCU-CHEK WILFREDO) Misc test strip Test twice daily as needed. Dx 250.02 ibuprofen (ADVIL) 200 mg ORAL tablet Take 400 mg by mouth twice daily as needed. [place]ady [place]'s Wort 300 mg ORAL Tab Take by [...] REVIEW OF SYSTEMS: (more content not included)... [facility] 08-29-2022 History of Presen t illness Narrative Images from the original note were not included. . [facility] [place] Note Patient name: Anel Henry PCP: Betzy [...] DATE OF EXAM: Feb 06 2022 2:44PM [facility] 0541 - CT CHEST WO IVCON / [...] suggestive of a cyst. There is cholelithiasis. 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 IMPRESSION: Stable [...] tolerates 1 tab twice daily with meals. Monte[place]-3 Fatty Acids (FISH OIL) 500 mg ORAL Cap Take by mouth once daily. blood sugar diagnostic (ONE TOUCH ULTRA TEST) Misc test strip Use as instructed blood sugar diagnostic (ACCU-CHEK WILFREDO) Misc test strip Test twice daily as needed. Dx 250.02 ibuprofen (ADVIL) 200 mg ORAL tablet Take 400 mg by mouth twice daily as needed. [place]ady [place]'s Wort 300 mg ORAL Tab Take by [...] Normocephalic, no masses, lesions, tenderness or abnormalities. [place]/hearing aids Eyes: Sclera, conjunctiva normal Neck: No [...] smoking history Cigarette smoker -Current greater than 80-vbai-ylsk smoker without sequelae COPD -Smoking cessation strongly encouraged 3. Coronary artery calcification seen on CT chest -Recommend calcium scoring CT and cardiology referral Gladys Hawthorne MD [facility] [place] documented in this encounter [facility] 02-06-2022 Note HNO ID: [id number] Author: Alina Fernandes MD Service: ? Author Type: Physician Type: Progress Notes Filed: 02/11/2022 10:25 AM Note Text: [facility] [place], 02/06/2022: Name: Anel Henry : 1950 INTERVAL [...] non-calcified.?Initially appreciated on screening CT chest at [facility] 12/12/2020. PET scan negative January,. CT [...] acceptance of my answers. [facility]es MD, [facility] [place] [facility] [address] [place] [address] P: [phone] F: [phone] [email or web address] [facility] 02-06-2022 Note HNO ID: [id number] Author: RT Shayna(R) Service: ? Author Type: Stone Belt Sander Type: Progress Notes Filed: 02/06/2022 4:01 PM [...] RT Felicita(R) February 06, 2022 4:01 PM [facility] 02-06-2022 Instructions Alina Fernandes MD - 02/06/2022 3:32 PM EDT MEDICAL DECISION MAKING: Multiple subcentimeter pulmonary nodules, non-calcified. Initially appreciated on screening CT chest at [facility] 12/12/2020. PET scan negative January,. CT chest 07/22/[address] chest today also appears stable. - Surveillance CT chest in 12 months, 01/2023. Sooner if needed. Alina Fernandes MD, [facility] [address] [place] [address] P: [phone] F: [phone] documented in this encounter [facility] 02-06-2022 History of Presen t illness Narrative [facility], 02/06/2022: Name: Anel Henry : 1950 INTERVAL [...] Initially appreciated on screening CT chest at [facility] 12/12/2020. PET scan negative January,. CT [...] acceptance of my answers. Alina Fernandes MD, [facility] [place] [facility] [address] [place] [address] P: [phone] F: [phone] [email or web address] documented in this encounter [facility] 02-06-2022 History of Presen t illness Narrative [...] 2022 4:01 PM documented in this encounter [facility] 10-10-2021 Note HNO ID: [id number] Author: Shelli Manrique PA-C Service: ? Author Type: Physician Administrative Nursing Supervisor Type: Progress Notes Filed: 10/10/2021 2:51 PM Note Text: Actionable Findings Registry I am following up on this actionable finding at the direction of the [place]. Patient was found previously to have an abnormal CT chest. Repeat CT chest was recommended and is scheduled. Will close this out of the actionable findings registry. Actionable Findings follow up status: Complete Shelli Manrique PA-C October 10, 2021 2:50 PM [facility] 10-10-2021 Note Patient Outreach (UR GDIS) ANEL HENRY ([id number]) 1950 M Date Time Provider Department 10/10/21 SHELLI MANRIQUE During your visit today, we recorded the following information about you: Shelli Manrique PA-C 10/10/2021 2:51 PM Signed Actionable Findings Registry I am following up on this actionable finding at the direction of the [place]. Patient was found previously to have an [...] 1 tab twice daily with meals. - Monte[place]-3 Fatty Acids (FISH OIL) 500 mg ORAL Cap Take by mouth once daily. - Lancets (ONE TOUCH ULTRASOFT LANCETS) Misc lancets Use as instructed - blood sugar diagnostic (ONE TOUCH ULTRA TEST) Misc test strip Use as instructed - blood sugar diagnostic (ACCU-CHEK WILFREDO) Misc test strip Test twice daily as needed. Dx 250.02 - Lancets (ACCU-CHEK MULTICLIX LANCET) [facility] lancets Use as instructed - ibuprofen (ADVIL) [...] Encounter Status:Closed by SHELLI MANRIQUE on 10/10/21 [facility] documented [facility] this [facility] Diagnosis Lung nodules- Primary Other nonspecific abnormal finding of lung field Chronic cough Cough Tobacco use disorder, continuous Tobacco use disorder documented [facility] this [facility] Diagnosis Lung nodules- Primary Other nonspecific abnormal finding of lung field Cigarette smoker Tobacco use disorder Coronary artery calcification seen on CAT scan Coronary atherosclerosis of unspecified type of vessel, inaja or graft documented in this encounter [facility] Reason for Referral Specialty Diagnoses / Procedures Referred By Lizzette dumont Referred To Contact CT IMAGING Diagnoses Lung nodules Procedures CT CHEST WO IVCON CAT SCAN OF CHEST Georgie Jarrell PA-C [address] [address] [address] Imaging Referral ID Status Reason Start Date Expiration Date V isits Requested Visits Authorized [id number] Closed Auto-Generate d Referral 02/07/2022 09/08/2022 1 1 Specialty Diagnoses / Procedures Referred By Contac t Referred To Contact CT IMAGING Diagnoses Lung nodules Procedures CT CHEST WO IVCON DIAGNOSTIC COMPUTED TOMOGRAPHY THORAX W/O CNTRST Alina Fernandes MD [address] [place] [address] Ct Imaging Referral ID Status Reason Start Date Expiration Date Visits Requested Visits Authorized [id number] Pending Review Auto-Generat ed Referral 01/26/2023 03/08/2023 1 1 Specialty Diagnoses / Procedures Referred By Contac t Referred To Contact CT IMAGING Diagnoses Lung nodules Procedures CT CHEST WO IVCON DIAGNOSTIC COMPUTED TOMOGRAPHY THORAX W/O CNTRST Gladys Hawthorne MD [address] [place] [address] Ct Imaging Referral ID Status Reason Start Date Expiration Date Visits Requested Visits Authorized [id number] Pending Review Auto-Generat ed Referral 02/06/2023 09/28/2023 [...] or prosecute any alcohol or drug abuse patient.[facility] the event this information is protected by the Federal Confidentiality of Alcohol and Drug Abuse Patient Records regulations: The Federal rules restrict any use of the information to criminally investigate or prosecute any alcohol or drug abuse patient.[facility] the event this information is protected by the Federal Confidentiality of Alcohol and Drug Abuse Patient Records regulations: The Federal rules restrict any use of the information to criminally investigate or prosecute any alcohol or drug abuse patient.[facility] Reason for Visit (unrecogniz ed section and content) Specialty Diagnoses / Procedures Referred By Lizzette dumont Referred To Contact CT IMAGING Diagnoses Lung nodules Procedures CT CHEST WO IVCON CAT SCAN OF CHEST Georgie Jarrell PA-C [address] [address] [address] Imaging Referral ID Status Reason Start Date Expiration Date V isits Requested Visits Authorized [id number] Closed Auto-Generate d Referral 02/07/2022 09/08/2022 1 1 Reason Comments Nodule Care Teams (unrecognized sec tion and content) [employer] Check[employer] And Cashiers Supervisor Relationship Specialty Start Date End Date Betzy Pulido MD PCP - General Family Practice 05/27/12 [employer] And Cash[employer] Supervisor Relationship Specialty Start Date End Date Betzy [...] BE BASED ON THE PRIMARY CLINICAL RECORDS. [facility]. provides no warranty or guarantee of the accuracy or completeness of information in this document.
== END | disposition home or self-care (01) ==
LOC: CT 13:44
PROVIDERS: PCP Family Medicine; Referring Provider Family Medicine; Visit Provider Family Medicine
DX: F17.210 Nicotine dependence, cigarettes, uncomplicated (principal)
CPT/HCPCS: 71271

== ENCOUNTER → 2023-12-29 | Outpatient (CLI) | payer MEDICARE, OTHER, SELFPAY ==
--- NOTE | 2023-12-29 10:00 | PET_ITS ---
EXAMINATION: FDG PET/CT ? INDICATIONS: 73-year-old male with a history of pulmonary nodularity. ? COMPARISON EXAMINATION: FDG-PET CT study dated 01/22/[address] of the chest report dated 01/22/2021. ? TECHNIQUE: Following the intravenous administration of 11.93 F-18 deoxyglucose via the right hand, multiplanar image acquisitions of the head, neck, chest, abdomen and pelvis to the level of the midthigh, obtained at one-hour post radiopharmaceutical administration contemporaneously interpreted with the current CT of the chest, abdomen and pelvis dated 12/29/2023 and prior FDG-PET CT study dated 01/22/[address] of the chest report dated 01/22/2021 via coregistration reveal: ? SERUM GLUCOSE LEVEL:? 111 mg/dL? HEIGHT:?? 68 inches WEIGHT:?? 185 pounds ? FINDINGS: ? HEAD/NECK:? There is no evidence of abnormal increased glucose metabolism in the pharyngeal mucosal space, parapharyngeal space, oropharynx, bilateral-lateral and anterior neck, hypopharynx and distribution of the larynx. ? The visualized portion of the cerebral cortical-subcortical structures demonstrate symmetric and preserved glucose metabolism. ? CHEST:? There is no quantitative scintigraphic evidence of abnormal increased glucose metabolism within the context of the bilateral hemithorax pulmonary parenchyma, right and left hemithorax at the pleural interface, mediastinal structures, and left-right thoracic perihilum. The left ventricular myocardium visualization is consistent with the fed state. ? CT of the chest demonstrates the following anatomic characteristics: The noncalcified approximately 6-mm density defined in the right mid posterior lung, superior segment of the right lower lobe demonstrates no evidence of increased tracer uptake. Atherosclerotic calcification is defined in the thoracic aorta without evidence of dilatation, aneurysm formation.? Coronary artery calcification is observed. Bilateral axillary soft tissue densities are nonglucose avid. Mediastinal soft tissue reveals no evidence of increased FDG uptake. ? ABDOMEN/PELVIS:? Normal physiologic distribution of the radiopharmaceutical is identified in the hepatic and splenic parenchyma, both renal units, urinary bladder, and visualized intestinal tract. Diffuse intestinal tract is identified in all four quadrants of the abdominal-pelvic mesentery. ? CT of the abdomen and pelvis is remarkable for the following: Cholelithiasis is defined. Atherosclerotic calcification is defined in the abdominal aorta without evidence of dilatation, aneurysm formation. Pelvic arterial calcification is observed. Colonic diverticulosis is noted without evidence of diverticulitis. A fat containing midline paraumbilical ventral hernia is demonstrated. Calcified phlebolith formation is noted in the bilateral lower hemipelvis. ? SKELETAL:? There is no evidence of quantitatively significant enhanced glucose metabolism on meticulous inspection of the appendicular and axial skeletal structures. A component of muscle tension artifact is noted in the soft tissue musculature of the left upper extremity. ? Degenerative changes defined in the thoracic and lumbar spine demonstrate no evidence of increased glucose metabolism. There are no sclerotic, mixed sclerotic-lytic, or primarily lytic changes defined in the axial skeletal structures with evidence of increased FDG uptake. ? PET/PET/CT Tumor Base -Thigh Init IMPRESSION: 1. NEGATIVE EXAMINATION. There is no definitive quantitative scintigraphic evidence of viable neoplasm. 2. Metabolic, morphologic stability may be ensured in the nonglucose avid approximate 6-mm density localized to the superior segment of the right lower lobe with repeat FDG-PET and/or CT of the thorax in 3-6 months, if clinically indicated. 3. Overall, compared to the prior FDG-PET CT study dated 01/22/2021, there is current and continued absence of defined viable neoplastic disease. ? Electronic Signature Noah Randhawa D.O. Accurate Quantification of SUVs for this report are calculated using the exclusive [employer]. (U.S. Patent No. [id number] [id number] [phone] [phone] patent [phone]). Standardization and correction of the FDG SUV metric via [employer] technology allow for vendor non-specific objective quantitative examination comparison and optimization of the sensitivity and specificity of the FDG PET-CT examination. . [email or web address] Electronically Signed: Noah Randhawa DO at 0:02 EST ,
--- OUTSIDE RECORDS SUMMARY | 2023-12-29 10:17 | XMS RPT_ITS | CCD ---
Author Name Unknown Address [address] [place] [address] Organization [facility] Care Team Providers Care Cardiac Nurse Specialist Name Role Phone Ashok SANCHEZ, Betzy Boland Primary Care Provider GLADYS HAWTHORNE Attending Unavailable BETZY PULIDO Primary Care Unavailable GEORGIE JARRELL Referring Unavailable ALINA FERNANDES Attending Unavailable BETZY PULIDO Primary Care Unavailable BETZY PULIDO Primary Care Unavailable GEORGIE JARRELL Referring Unavailable Allergies Allergy Classification Reported Allergen(s) Allergy Type Date of Onset Reaction(s) Facility (3 sources) Penicillins; Translations: [PENICILLINS] Drug Allergy 06-11-2007 [facility] Work Phone: (1 source) Penicillins Drug Allergy 06-11-2007 [facility] Work Phone: Medications Completed/Discontinued Medications [...] coronary artery; Translations: [Atherosclerotic heart disease of [place] coronary artery without angina pectoris] Chronic Diabetes [...] 83.92 kg Gladys Hawthorne MD Work Phone: [facility] 08-29-2022 12:42-0400 Diastolic blood pressure 72 mm[Hg] Gladys Hawthorne MD Work Phone: [facility] 08-29-2022 12:42-0400 Heart rate 89 /min Gladys Hawthorne MD Work Phone: [facility] 08-29-2022 12:42-0400 SaO2% (BldA) [Mass fraction] 97 % Gladys Hawthorne MD Work Phone: [facility] 08-29-2022 12:42-0400 Systolic blood pressure 136 mm[Hg] Gladys Hawthorne MD Work Phone: [facility] 02-06-2022 14:47-0400 Body height 181.6 cm Alina Fernandes MD Work Phone: [facility] 02-06-2022 14:47-0400 Body weight 84.82 kg Alina Fernandes MD Work Phone: [facility] 02-06-2022 14:47-0400 Diastolic blood pressure 76 mm[Hg] Alina Fernandes MD Work Phone: [facility] 02-06-2022 14:47-0400 Heart rate 76 /min Alina Fernandes MD Work Phone: [facility] 02-06-2022 14:47-0400 SaO2% (BldA) [Mass fraction] 98 % Alina Fernandes MD Work Phone: [facility] 02-06-2022 14:47-0400 Systolic blood pressure 124 mm[Hg] Alina Fernandes MD Work Phone: [facility] Encounters Encounter Date Encounter Type Care Provider Facility Start: 08-29-2022 End: 08-29-2022 ambulatory GLADYS HAWTHORNE Facility:[facility] Start: 08-29-2022 End: 08-29-2022 Patient encounter procedure Gladys Hawthorne MD Work Phone: Pulmonary Medicine Procedures Date Procedure Procedure Detail Performing Clinician Start: 02-06-2022 Ct thorax w/o contra st material Georgie Jarrell PA-C Work Phone: Plan of Treatment Date Care Activity Detail Author Start: 02-06-2023 BP CONTROLLED (<130/80) BP CONTROLLE D (<130/80) [facility] Start: 02-06-2023 End: 09-28-2023 Ct thorax w/o contrast material CT CHEST WO IVCON Radiology Routine Lung nodules Expected: 02/06/2023, Expires: 09/28/2023 [facility] Work Phone: Immunizations Immunization Date Immunization Notes Care Provider Shawn butterfield 01-06-2021 COVID-19 vaccine (UNSPECIFIED) Ct (I-Stat) Work Phone: [facility] Work Phone: 08-07-2020 influenza, high dose seasonal, preservative-free Ct (I-Stat) Work Phone: [facility] Work Phone: 03-18-2011 pneumococcal polysaccharide vaccine, [address] (I-Stat) Work Phone: [facility] Work Phone: 02-26-2011 tetanus toxoid, redu pilar diphtheria toxoid, and acellular pertussis vaccine, adsorbed Ct (I-Stat) Work Phone: [facility] Work Phone: 09-21-2006 influenza virus vacc ine, unspecified formulation Ct (I-Stat) Work Phone: [facility] Payers Date Payer Category Payer Medicare [id number] 2019 Private Health Insurance [employer] A ETNA MEDICARE SUPPLEMENT [id number] 2019-Present [phone] [address] [address] [place] [address] Indemnity [id number] 2019 Private Health Insurance [employer] A ETNA MEDICARE SUPPLEMENT [id number] 2019-Present [phone] [address] [address] [place] [address] Indemnity [id number] 2013 Medicare MEDICARE MEDICAR E A AND B [id number] 2013-Present [phone] [place] [address] Medicare [id number] 2013 Medicare MEDICARE MEDICAR E A AND B [id number] 2013-Present [phone] [place] [address] Medicare [id number] 2013 Medicare [id number] Social History Date Type Detail [facility] Start: 1970 History of tobacco use Cigarette Smo ker [facility] Start: 02-06-2022 End: 08-29-2022 Alcohol intake Current drinker of alcohol (finding) [facility] Start: 01-07-2021 History SDOH Alcohol Comment Occasional. [facility] Start: 02-06-2022 End: 08-29-2022 Tobacco Comment 2 packs per week, 02/06/22. TO [facility] Start: 1950 Sex Assigned At Not on file [facility] Start: 01-27-2022 End: 02-06-2022 Exposure to SARS-CoV-2 (event) Not sure [facility] Start: 08-29-2022 Cigarettes smoked cu rrent (pack per day) - Reported 0.5 [facility] Start: 08-29-2022 Tobacco use and exposure Smoke less tobacco non-user [facility] Medical Equipment Procedure Code Equipment Code Equipment Origin al Text Equipment Identifier Dates Start: 03-18-2011 End: 02-06-2022 Clinical Notes 10-10-2021 to 08-29-2022 Gladys Hawthorne MD - 08/29/2022 12:45 PM EDTPatient Shivam Fernandes MD - 02/06/2022 3:01 PM EDTKiRT Marychuy(R) - 02/06/2022 2:00 PM EDT Note Date & Type Note Facility 08-29-2022 Note HNO ID: [id number] Author: Gladys Hawthorne MD Service: ? Author Type: Physician Type: Progress Notes Filed: 08/29/2022 8:08 PM Note Text: . [facility] [place] [facility] Patient name: Anel Henry PCP: Betzy [...] DATE OF EXAM: Feb 06 2022 2:44PM [facility] 0541 - CT CHEST WO IVCON / [...] suggestive of a cyst. There is cholelithiasis. [employer] Operator (topogram) images: No additional findings. IMPRESSION: [...] tolerates 1 tab twice daily with meals. [place]-3 Fatty Acids (FISH OIL) 500 mg ORAL Cap Take by mouth once daily. blood sugar diagnostic (ONE TOUCH ULTRA TEST) Misc test strip Use as instructed blood sugar diagnostic (ACCU-CHEK WILFREDO) Misc test strip Test twice daily as needed. Dx 250.02 ibuprofen (ADVIL) 200 mg ORAL tablet Take 400 mg by mouth twice daily as needed. [place]'s Wort 300 mg ORAL Tab Take by [...] REVIEW OF SYSTEMS: (more content not included)... [facility] 08-29-2022 History of Presen t illness Narrative Images from the original note were not included. . [facility] [place] [facility] Patient name: Anel Henry PCP: Betzy [...] DATE OF EXAM: Feb 06 2022 2:44PM [facility] 0541 - CT CHEST WO IVCON / [...] suggestive of a cyst. There is cholelithiasis. [employer] Operator (topogram) images: No additional findings. IMPRESSION: [...] tolerates 1 tab twice daily with meals. [place]-3 Fatty Acids (FISH OIL) 500 mg ORAL Cap Take by mouth once daily. blood sugar diagnostic (ONE TOUCH ULTRA TEST) Misc test strip Use as instructed blood sugar diagnostic (ACCU-CHEK WILFREDO) Misc test strip Test twice daily as needed. Dx 250.02 ibuprofen (ADVIL) 200 mg ORAL tablet Take 400 mg by mouth twice daily as needed. [place]'s Wort 300 mg ORAL Tab Take by [...] Normocephalic, no masses, lesions, tenderness or abnormalities. [place]/hearing aids Eyes: Sclera, conjunctiva normal Neck: No [...] smoking history Cigarette smoker -Current greater than 58-[id number]-ivje smoker without sequelae COPD -Smoking cessation strongly encouraged 3. Coronary artery calcification seen on CT chest -Recommend calcium scoring CT and cardiology referral Gladys Hawthorne MD [facility] documented in this encounter [facility] 02-06-2022 Note HNO ID: [id number] Author: Alina Fernandes MD Service: ? Author Type: Physician Type: Progress Notes Filed: 02/11/2022 10:25 AM Note Text: [facility] [place], 02/06/2022: Name: Anel Henry : 1950 INTERVAL [...] non-calcified.?Initially appreciated on screening CT chest at [facility] 12/12/2020. PET scan negative January,. CT [...] acceptance of my answers. Alina Fernandes MD, [facility] [place] [facility] [address] [place] [address] P: [phone] F: [phone] [email or web address] [facility] 02-06-2022 Note HNO ID: [id number] Author: RT Shayna(R) Service: ? Author Type: Bench Hand Type: Progress Notes Filed: 02/06/2022 4:01 PM [...] RT Felicita(R) February 06, 2022 4:01 PM [facility] 02-06-2022 Instructions Alina Fernandes MD - 02/06/2022 3:32 PM EDT MEDICAL DECISION MAKING: Multiple subcentimeter pulmonary nodules, non-calcified. Initially appreciated on screening CT chest at [facility] 12/12/2020. PET scan negative January,. CT chest 07/22/[address] chest today also appears stable. - Surveillance CT chest in 12 months, 01/2023. Sooner if needed. Alina Fernandes MD, [facility] [address] [place] [address] P: [phone] F: [phone] documented in this encounter [facility] 02-06-2022 History of Presen t illness Narrative [facility], 02/06/2022: Name: Anel Henry : 1950 INTERVAL [...] Initially appreciated on screening CT chest at [facility] 12/12/2020. PET scan negative January,. CT [...] acceptance of my answers. Alina Fernandes MD, [facility] [place] [facility] [address] [place] [address] P: [phone] F: [phone] [email or web address] documented in this encounter [facility] 02-06-2022 History of Presen t illness [...] 2022 4:01 PM documented in this encounter [facility] 10-10-2021 Note HNO ID: [id number] Author: Shelli Manrique PA-C Service: ? Author Type: Physician Shuttle Hand Type: Progress Notes Filed: 10/10/2021 2:51 PM Note Text: Actionable Findings Registry I am following up on this actionable finding at the direction of the [place]. Patient was found previously to have an abnormal CT chest. Repeat CT chest was recommended and is scheduled. Will close this out of the actionable findings registry. Actionable Findings follow up status: Complete Shelli Manrique PA-C October 10, 2021 2:50 PM [facility] 10-10-2021 Note Patient Outreach (UR GDIS) ANEL HENRY ([id number]) 1950 M Date Time Provider Department 10/10/21 SHELLI MANRIQUE During your visit today, we recorded the following information about you: Shelli Manrique PA-C 10/10/2021 2:51 PM Signed Actionable Findings Registry I am following up on this actionable finding at the direction of the [place]. Patient was found previously to have an [...] 1 tab twice daily with meals. - [place]-3 Fatty Acids (FISH OIL) 500 mg ORAL Cap Take by mouth once daily. - Lancets (ONE TOUCH ULTRASOFT LANCETS) Misc lancets Use as instructed - blood sugar diagnostic (ONE TOUCH ULTRA TEST) Misc test strip Use as instructed - blood sugar diagnostic (ACCU-CHEK WILFREDO) Misc test strip Test twice daily as needed. Dx 250.02 - Lancets (ACCU-CHEK MULTICLIX LANCET) [facility] lancets Use as instructed - ibuprofen (ADVIL) [...] Encounter Status:Closed by SHELLI MANRIQUE on 10/10/21 [facility] Lung nodules- Primary Other nonspecific abnormal finding of lung field Chronic cough Cough Tobacco use disorder, continuous Tobacco use disorder [facility] Diagnosis Lung nodules- Primary Other nonspecific abnormal finding of lung field Cigarette smoker Tobacco use disorder Coronary artery calcification seen on CAT scan Coronary atherosclerosis of unspecified type of vessel, [place] or graft documented in this encounter [facility] Reason for Referral Specialty Diagnoses / Procedures Referred By Lizzette dumont Referred To Contact CT IMAGING Diagnoses Lung nodules Procedures CT CHEST WO IVCON CAT SCAN OF CHEST Georgie Jarrell PA-C [address] [address] [address] Imaging Referral ID Status Reason Start Date Expiration Date V isits Requested Visits Authorized [id number] Closed Auto-Generate d Referral 02/07/2022 09/08/2022 1 1 Specialty Diagnoses / Procedures Referred By Contac t Referred To Contact CT IMAGING Diagnoses Lung nodules Procedures CT CHEST WO IVCON DIAGNOSTIC COMPUTED TOMOGRAPHY THORAX W/O CNTRST Alina Fernandes MD [address] [place] [address] Ct Imaging Referral ID Status Reason Start Date Expiration Date Visits Requested Visits Authorized [id number] Pending Review Auto-Generat ed Referral 01/26/2023 03/08/2023 1 1 Specialty Diagnoses / Procedures Referred By Contac t Referred To Contact CT IMAGING Diagnoses Lung nodules Procedures CT CHEST WO IVCON DIAGNOSTIC COMPUTED TOMOGRAPHY THORAX W/O CNTRST Gladys Hawthorne MD [address] [place] [address] Ct Imaging Referral ID Status Reason Start Date Expiration Date Visits Requested Visits Authorized [id number] Pending Review Auto-Generat ed Referral 02/06/2023 09/28/2023 [...] or prosecute any alcohol or drug abuse patient.[facility] the event this information is protected by the Federal Confidentiality of Alcohol and Drug Abuse Patient Records regulations: The Federal rules restrict any use of the information to criminally investigate or prosecute any alcohol or drug abuse patient.[facility] the event this information is protected by the Federal Confidentiality of Alcohol and Drug Abuse Patient Records regulations: The Federal rules restrict any use of the information to criminally investigate or prosecute any alcohol or drug abuse patient.[facility] Reason for Visit (unrecogniz ed section and content) Specialty Diagnoses / Procedures Referred By Lizzette dumont Referred To Contact CT IMAGING Diagnoses Lung nodules Procedures CT CHEST WO IVCON CAT SCAN OF CHEST Georgie Jarrell PA-C [address] [address] [address] Imaging Referral ID Status Reason Start Date Expiration Date V isits Requested Visits Authorized [id number] Closed Auto-Generate d Referral 02/07/2022 09/08/2022 1 1 Reason Comments Nodule Care Teams (unrecognized sec tion and content) Cardiac Nurse Specialist Relationship Specialty Start Date End Date Betzy Pulido MD PCP - General Family Practice 05/27/12 Cardiac Nurse Specialist Relationship Specialty Start Date End Date Betzy [...] BE BASED ON THE PRIMARY CLINICAL RECORDS. [facility]. provides no warranty or guarantee of the accuracy or completeness of information in this document.
== END | disposition home or self-care (01) ==
LOC: ONC 09:39
PROVIDERS: PCP Family Medicine; Referring Provider Family Medicine; Visit Provider Family Medicine
DX: R91.1 Solitary pulmonary nodule (principal)
CPT/HCPCS: 78815; A9552

== ENCOUNTER 2024-05-31 11:24 | Outpatient (CLI) | payer MEDICARE, OTHER, SELFPAY ==
[2024-05-31 15:09] LABS: Absolute Lymphocyte Count 1.27 X10^3/uL (0.83-4.51); Absolute Neutrophil Count 4.8 X10^3/uL (2.0-7.7); Basophil# 0.09 X10^3/uL; Basophil% 1.3 % (0-1); Eosinophil# 0.24 X10^3/uL; Eosinophils% 3.3 % (0-5); Hemoglobin 14.8 g/dL (13.0-16.5); Lymphocyte # 1.27 X10^3/ul (0.83-4.51); Lymphocyte % 17.7 % (19-41); Mean Corp Hgb Conc 32.9 g/dL (32-36); Mean Corpuscular Hgb 32.5 pg (27.0-32.0); Mean Corpuscular Volume 98.7 fL (80-94); Mean Platelet Vol. 10.3 fl (6.2-12.0); Monocyte# 0.79 X10^3/uL; NRBC Flagged by Analyzer 0 % (0-5); Neutrophil # 4.76 X10^3/uL (2.7-7.7); Neutrophil % 66.4 % (47-70); Platelet Count 220 K/mm3 (150-450); RBC Distribution Width CV 12.4 % (11.6-14.6); RBC Distribution Width SD 45.3 fl (35.1-43.9); Red Blood Count 4.56 M/mm3 (4.6-6.2); White Blood Count 7.2 K/mm3 (4.4-11.0)
[2024-05-31 15:34] LABS: ALB/GLOB Ratio 1.1 RATIO (0.9-2.4); AST(SGOT) 22 U/L (15-37); Alanine Aminotransfer ALT/SGPT 24 U/L (16-61); Albumin, Serum 3.6 g/dL (3.2-5.0); Alkaline Phosphatase 54 U/L (45-117); Anion Gap 6 (5-15); BUN 15 mg/dL (7-18); BUN/Creat Ratio 16.1 RATIO (10-20); Calcium,Total 9.4 mg/dL (8.5-10.1); Chloride 105 mmol/L (98-107); Creatinine, Serum 0.93 mg/dL (0.70-1.30); EST Glomerular Filtration Rate 84 mL/min (>60); Est Glom Filt Rate - Afr Amer 101 mL/min (>60); Globulin 3.2 g/dL (2.2-4.2); Glucose 105 mg/dL (74-106); Potassium 4.3 mmol/L (3.5-5.1); Protein, Total 6.8 g/dL (6.4-8.2); Sodium Level 137 mmol/L (136-145); Thyroid Stim Hormone (TSH) 0.16 uIU/mL (0.358-3.74)
[2024-05-31 16:23] LABS: Microalbumin,Random Urine 8.6 mg/L (NO RANGE EST.); Microalbumin:Creatinine Ratio 5.2 mg/g CRE (<30 mg/g CRE)
[2024-05-31 16:59] LABS: Hemoglobin A1c 5.3 % (3.8-5.6)
== END 2024-05-31 23:59 | disposition home or self-care (01) ==
LOC: MFPLAB 11:25
PROVIDERS: PCP Family Medicine; Visit Provider Family Medicine
DX: E03.9 Hypothyroidism, unspecified (principal); J43.9 Emphysema, unspecified; I10 Essential (primary) hypertension; E88.810 Metabolic syndrome; Z79.84 Long term (current) use of oral hypoglycemic drugs
CPT/HCPCS: 36415; 80053; 82043; 82570; 83036; 84443; 85025

== ENCOUNTER → 2024-06-17 | Outpatient (CLI) | payer MEDICARE, OTHER, SELFPAY ==
--- NOTE | 2024-06-17 12:38 | CT_ITS ---
HISTORY: known nodule. repeat CT in 3-6 advised by PET scan. TECHNIQUE: Helically acquired images were obtained of the chest without contrast. A radiation dose optimization technique was used for this scan. 889 images. COMPARISON: PET-CT 12/29/2023, CT 12/01/2023, PET-CT 01/22/2021. FINDINGS: LARGE AIRWAYS: Minimal adherent material in the giorgi. LUNGS: Stable 7 mm right lower lobe nodule. Unchanged 1.2 x 2 cm right lower lobe pleural-parenchymal opacity containing mild calcification. Stable 2 mm left upper lobe nodule. PLEURA: No pneumothorax or significant pleural effusion. HEART/PERICARDIUM: Heart within normal limits in size with coronary artery calcification. No pericardial effusion. VESSELS: Thoracic aorta nondilated. Atherosclerosis present. MEDIASTINUM/ZINA: No pathologically enlarged adenopathy. UPPER ABDOMEN: Stable small hepatic cyst. BONES: Degenerative change. CT/Chest without Contrast IMPRESSION: No significant interval change in 7 mm right lower lobe pulmonary nodule and right lower lobe pleural parenchymal opacity compared to 12/01/2023. Lung-RADS category 2: Recommend screening low dose CT in 12 months. Electronically Signed: Bing Lechuga MD at 12:41 EDT ,
== END | disposition home or self-care (01) ==
LOC: CT 12:38
PROVIDERS: PCP Family Medicine; Referring Provider Family Medicine; Visit Provider Family Medicine
DX: R91.8 Other nonspecific abnormal finding of lung field (principal)
CPT/HCPCS: 71250

== ENCOUNTER 2024-07-20 18:06 | Inpatient (IN) | payer MEDICARE, OTHER, SELFPAY ==
[2024-07-20] VITALS (12 sets, daily range): BP systolic 80–100; BP diastolic 47–59; PULSE 83–117; RESP 13–43; TEMP 36.4–39.3; O2SAT 94–99; BMI 25.6
--- NOTE | 2024-07-20 18:12 | ED.RN ---
Stroke alert canceled at [address] Camarillo.
--- NOTE | 2024-07-20 18:15 | NURSING ---
1809 STROKE ALERT CALLED CANCELLER
--- NOTE | 2024-07-20 18:17 | NURSING ---
NO OLD EKGS
--- NOTE | 2024-07-20 18:20 | EKG12_ITS ---
Test Reason : UNRESPONSIVE Blood Pressure : / mmHG Vent. Rate : 117 BPM Atrial Rate : 117 BPM P-R Int : 178 ms QRS Dur : 096 ms QT Int : 306 ms P-R-T Axes : 068 -75 065 degrees QTc Int : 426 ms Sinus tachycardia Left axis deviation Low voltage QRS Possible Lateral infarct , age undetermined Abnormal ECG Confirmed by LASHANDA SANCHEZ, JORDAN ([id number]), photo editor MARCOS RIVERA ([id number]) on 07/22/2024 8:01:48 AM Referred By: MILLY Confirmed By:JORDAN PYLE MD
--- NOTE | 2024-07-20 18:21 | EDS_ITS ---
HPI History of Present Illness Chief Complaint: Stroke Alert Informant: patient, spouse/S.O. and EMS Narrative Narrative: 73-year-old male arriving to the emergency department via EMS as a prehospital stroke alert. tells me that he went out to mow the lawn around noon. She took a nap when she woke the riding lawnmower was still running but he was nowhere to be found. She found him unresponsive in the grass. EMS was called and noted that he was nonverbal. They noted that he had a temperature of 101.8. states that he had an unresponsive episode about a month ago but he did not seek care. She notes that he has not been sick recently. [facility] Medical History (Updated 07/20/24 @ 23:[address] Srinivas Camarillo DO) Prediabetes Home Medications ?Medication ?Instructions ?Recorded ?Last Taken ?Type aspirin 81 mg tablet,delayed 81 mg PO DAILY 07/20/24 Unknown History release (Adult Low Dose Aspirin) atorvastatin 20 mg tablet 20 mg PO DAILY 07/20/24 Unknown History levothyroxine 150 mcg tablet 150 mcg PO DAILY 07/20/24 Unknown History lisinopril 10 1 tab PO DAILY 07/20/24 Unknown History mg-hydrochlorothiazide 12.5 mg tablet metformin 500 mg tablet 500 mg PO BID 07/20/24 Unknown History tamsulosin 0.4 mg capsule 0.4 mg PO DAILY 07/20/24 Unknown History Allergy/AdvReac Type Severity Reaction Status Date / Time Penicillins (PCN) Allergy PT UNABLE Verified 07/20/24 19:02 TO RESPOND-NEEDS F/U poison lisette extract AdvReac Mild Hives Verified 07/20/24 19:02 Surgical History H/O hand surgery Social History household members: spouse housing: house Smoking Status: Current every day smoker tobacco type: cigarettes ROS ROS ED Constitutional Constitutional ED: Reports fever(s); Denies chills or weight loss Eyes Eyes: Denies change in vision or diplopia ENT ENT ED: Denies ear pain, rhinorrhea or sore throat Cardiovascular Cardiovascular: Denies chest pain, orthopnea, palpitations or racing heartbeat Respiratory/Chest Respiratory/Chest: Reports dyspnea; Denies cough or orthopnea Gastrointestinal Gastrointestinal: Denies abdominal pain, diarrhea, nausea or vomiting Genitourinary Genitourinary ED: Denies dysuria, hematuria or urinary frequency Musculoskeletal Musculoskeletal: Denies arthralgias or myalgias Integumentary Denies abscess or rash Neurologic Neurologic: Denies headache(s) or weakness Psychiatric Psychiatric: Denies anxiety, depression, suicidal ideation or suicidal thoughts Endocrine Endocrinology: Denies polydipsia, polyphagia or polyuria Allergic/Immunologic Allergic/Immunologic ED: Denies mouth swelling, tongue swelling or urticaria EXAM Physical Exam Const Vital Signs: 07/20/24 18:13 07/20/24 18:21 07/20/24 18:31 Temperature 101.8 F H 102.8 F H Temperature Source Temporal Oral Pulse Rate 117 H 115 H Respiratory Rate 32 H 43 H Blood Pressure 100/59 L 95/53 L Blood Pressure Mean 72 67 Pulse Ox 94 95 95 Oxygen Delivery Method Nasal Cannula Nasal Cannula Nasal Cannula Oxygen Flow Rate (L/min) 2 2 2 07/20/24 19:19 07/20/24 20:25 07/20/24 21:00 Temperature 100.1 F H Temperature Source Axillary Pulse Rate 88 97 97 Respiratory Rate 25 H 25 H 20 H Blood Pressure 91/50 L 90/51 L 80/51 L Blood Pressure Mean 63 64 60 Pulse Ox 97 98 98 Oxygen Delivery Method Nasal Cannula Nasal Cannula Room Air Oxygen Flow Rate (L/min) 3 07/20/24 21:06 07/20/24 21:21 07/20/24 21:36 Temperature 97.7 F L 97.7 F L 97.7 F L Temperature Source Oral Oral Oral Pulse Rate 97 90 99 Respiratory Rate 20 H 13 15 Blood Pressure 80/51 L 92/48 L 81/59 L Blood Pressure Mean 60 62 66 Pulse Ox 98 96 99 Oxygen Delivery Method Nasal Cannula Nasal Cannula Oxygen Flow Rate (L/min) 3 3 07/20/24 21:51 07/20/24 22:00 07/20/24 23:00 Temperature 97.6 F L 97.6 F L Temperature Source Oral Oral Pulse Rate 83 85 84 Respiratory Rate 13 15 18 Blood Pressure 84/47 L 84/47 L 82/55 L Blood Pressure Mean 59 59 64 Pulse Ox 97 98 96 Oxygen Delivery Method Nasal Cannula Nasal Cannula Room Air Oxygen Flow Rate (L/min) 3 3 07/21/24 00:00 Temperature 97.7 F L Temperature Source Oral Pulse Rate 84 Respiratory Rate 14 Blood Pressure 87/47 L Blood Pressure Mean 60 Pulse Ox 95 Oxygen Delivery Method Room Air Oxygen Flow Rate (L/min) Positive well nourished and well developed General Appearance ED: well developed HEENT Reports normocephalic and moist mucous membranes HEENT Narrative: Abrasions with dirt left cheek Eyes PERRL and EOMs intact bilaterally Neck no lymphadenopathy, supple and no JVD Resp clear to auscultation bilaterally Resp Narrative: Patient appears tachypneic Cardio regular rate, regular rhythm and no murmurs Rate: tachycardic GI normal to inspection, nondistended, normoactive bowel sounds and non-tender Palpation: soft Back/Spine no CVA tenderness and normal ROM Extremity normal to inspection General Extremety ED: Negative for edema General Extremity: Negative for edema Neuro CN's II-XII intact bilaterally Neuro Narrative: Patient can tell me his name and that it is 2023 that he is at the hospital. He is slow to speak but do not appreciate a dysarthria or aphasia. He is able to move all 5 extremities. Sensorium / Orientation: lethargic Psych Mood & Affect: Negative for depressed or tearful Skin no rashes or lesions noted Skin Narrative: Bilateral arm abrasions Trauma: abrasion MDM MDM MDM Narrative Medical decision making narrative: Differential diagnosis includes but not limited to ischemic/hemorrhagic stroke, heatstroke, dehydration, ACS, pulmonary embolism, cardiac dysrhythmia, electrolyte abnormalities, rhabdomyolysis, dehydration, sepsis, viral syndrome, UTI, aortic catastrophe White count returns at 12.0 hemoglobin 14.4 with a platelet count 269. INR 1.2 with a PTT 28.1 BUN of 21 creatinine 1.43 glucose 139 lactic acid slightly elevated 2.4. Total CK is 311 troponin I high-sensitivity is 110 lipase 46 normal liver enzymes BNP is normal urinalysis with 2+ bacteria but no overt infection toxicology is negative. My independent interpretation the chest x-ray is no acute process. CT of the brain shows no acute hemorrhage or edema or fracture. EKG is a sinus tachycardia at a rate of 117. Gould catheter was placed and he has been making urine. Patient received IV fluids. He also received Tylenol. Patient has continued to have soft mean arterial blood pressures around 65-66. He is no longer tachycardic is no longer febrile. He has been more alert. He received additional IV fluids repeat lactic acid was obtained. CTA of the chest was obtained which does not demonstrate pulmonary embolism or dissection. Lower lobe atelectasis noted. Stable lung nodule again seen. Patient's repeat lactic acid is normal. His second troponin was sent. Patient is mentating better. He is making adequate urine. He has got excellent capillary refill. Blood pressure currently 91/50. He is continued to receive IV fluids. Plan will be admission. I will speak with the hospitalist. History & Record Review Discussion w/independent historian: EMS personnel, Patient and Family Lab Data Attestation: I reviewed the patient's lab results. Labs: Laboratory Results - last 24 hr 07/20/24 07/20/24 07/20/24 18:10 18:34 18:38 WBC 12.0 H RBC 4.41 L Hgb 14.4 Hct 42.4 MCV 96.1 H MCH 32.7 H MCHC 34.0 RDW Std Deviation 44.9 H RDW Coeff of Adeel 12.6 Plt Count 269 MPV 9.8 Immature Gran % (Auto) 0.500 Neut % (Auto) 82.8 H Lymph % (Auto) 7.8 L [place] % (Auto) 6.5 Eos % (Auto) 1.4 Baso % (Auto) 1.0 Absolute Neuts (auto) 10.0 H Absolute Lymphs (auto) 0.94 Nucleated RBC % 0 PT 15.4 H INR 1.2 APTT 28.1 Sodium 139 Potassium 4.7 Chloride 111 H Carbon Dioxide 22.0 Anion Gap 6 BUN 21 H Creatinine 1.43 H Estim Creat Clear Calc 48.99 Est GFR (MDRD) Af Amer 62 Est GFR (MDRD) Non-Af 51 L BUN/Creatinine Ratio 14.7 Glucose 139 H Lactic Acid 2.4 H* Calcium 9.7 Total Bilirubin 0.60 Direct Bilirubin 0.21 AST 20 ALT 24 Alkaline Phosphatase 58 Total Creatine Kinase 311 H Troponin I High Sens 110 H B-Natriuretic Peptide 51.0 Total Protein 6.8 Albumin 3.5 Globulin 3.3 Lipase 46 Urine Color Yellow Urine Clarity Clear Urine pH 5.0 Ur Specific [place] 1.025 Urine Protein 30 H Urine Glucose (UA) Normal Urine Ketones Negative Urine Occult Blood Negative Urine Nitrite Negative Urine Bilirubin Negative Urine Urobilinogen 1 H Ur Leukocyte Esterase 25 H Urine RBC 0 SEEN Urine WBC 0-5 SEEN Ur Squamous Epith Cells 0 SEEN Ur Transition Epith Cell 0-5 SEEN Ur Renal Epithelial Cell 5-10 SEEN Urine Bacteria 2+ Hyaline Casts 50-100 SEEN Urine Mucus 0 SEEN Urine Opiates Screen NEGATIVE Urine Methadone Screen NEGATIVE Ur Barbiturates Screen NEGATIVE Ur Phencyclidine Scrn NEGATIVE Ur Amphetamines Screen NEGATIVE MDMA (Ecstasy) Screen NEGATIVE U Benzodiazepines Scrn NEGATIVE Urine Cocaine Screen NEGATIVE U Cannabinoids Screen NEGATIVE Ur Drug Screen Comment Ethyl Alcohol 7.0 07/20/24 07/20/24 22:46 23:20 WBC RBC Hgb Hct MCV MCH MCHC RDW Std Deviation RDW Coeff of Adeel Plt Count MPV Immature Gran % (Auto) Neut % (Auto) Lymph % (Auto) [place] % (Auto) Eos % (Auto) Baso % (Auto) Absolute Neuts (auto) Absolute Lymphs (auto) Nucleated RBC % PT INR APTT Sodium Potassium Chloride Carbon Dioxide Anion Gap BUN Creatinine Estim Creat Clear Calc Est GFR (MDRD) Af Amer Est GFR (MDRD) Non-Af BUN/Creatinine Ratio Glucose Lactic Acid 0.8 Calcium Total Bilirubin Direct Bilirubin AST ALT Alkaline Phosphatase Total Creatine Kinase Troponin I High Sens 196 H* B-Natriuretic Peptide Total Protein Albumin Globulin Lipase Urine Color Urine Clarity Urine pH Ur Specific [place] Urine Protein Urine Glucose (UA) Urine Ketones Urine Occult Blood Urine Nitrite Urine Bilirubin Urine Urobilinogen Ur Leukocyte Esterase Urine RBC Urine WBC Ur Squamous Epith Cells Ur Transition Epith Cell Ur Renal Epithelial Cell Urine Bacteria Hyaline Casts Urine Mucus Urine Opiates Screen Urine Methadone Screen Ur Barbiturates Screen Ur Phencyclidine Scrn Ur Amphetamines Screen MDMA (Ecstasy) Screen U Benzodiazepines Scrn Urine Cocaine Screen U Cannabinoids Screen Ur Drug Screen Comment Ethyl Alcohol Radiography Diagnostic Testing: Clinical Impression(s) from Imaging Studies Chest X-Ray 07/20/24 19:00 IMPRESSION: Degenerative changes, as described above. No demonstrated acute cardiopulmonary process. Electronically Signed: Josef Diallo MD at 19:29 EDT , Brain CT 07/20/24 19:21 IMPRESSION: Chronic involutional changes of the brain. Electronically Signed: Josef Diallo MD at 20:01 EDT , Chest CTA 07/20/24 20:15 IMPRESSION: CTA chest examination, without a demonstrated pulmonary embolism or arterial dissection. Lower lung atelectasis. Right lower lung nodule is similar to prior exams. Electronically Signed: Josef Diallo MD at 21:18 EDT , EKG Initial EKG: Attestation: I personally reviewed and interpreted this EKG as follows: Comments: Sinus tachycardia ventricular rate of [address] elevation noted Management Discussion w/another healthcare provider: Hospitalist (Dr Barnes) Critical Care Time Critical Care Time: Yes Critical care time (excluding procedures): 30-74 minutes (35 min), Including time spent:, Discussing w/Patient &/or Family/Business Analysis Consultant, Discussing w/Consultants, Arranging Admission or Transfer and Performing Direct Patient Care at Bedside Discharge Plan Dx/Rx/DC Orders Clinical Impression: Unresponsive episode, Acute febrile illness, Acute hypotension, Elevated troponin Disposition Disposition: Acute Care [facility]
[2024-07-20] MEDS: 0.9% Normal Saline (1000mL) 1,000 ML 1000 ML IV ×2 (18:42→19:53)
[2024-07-20] MEDS: Acetaminophen 650 MG Suppository RC (18:42)
[2024-07-20 19:00] LABS: AST(SGOT) 20 U/L (15-37); Alanine Aminotransfer ALT/SGPT 24 U/L (16-61); Albumin, Serum 3.5 g/dL (3.2-5.0); Alkaline Phosphatase 58 U/L (45-117); Anion Gap 6 (5-15); BUN 21 mg/dL (7-18); BUN/Creat Ratio 14.7 RATIO (10-20); Bilirubin, Direct 0.21 mg/dL (0.00-0.30); CPK Total, Creatine Kinase 311 U/L (39-308); Calcium,Total 9.7 mg/dL (8.5-10.1); Chloride 111 mmol/L (98-107); Creatinine, Serum 1.43 mg/dL (0.70-1.30); EST Glomerular Filtration Rate 51 mL/min (>60); Est Glom Filt Rate - Afr Amer 62 mL/min (>60); Estimated Creatinine Clearance 48.99 ml/min; Globulin 3.3 g/dL (2.2-4.2); Glucose 139 mg/dL (74-106); Lipase 46 U/L (13-75); Potassium 4.7 mmol/L (3.5-5.1); Protein, Total 6.8 g/dL (6.4-8.2); Sodium Level 139 mmol/L (136-145); Troponin-I HS 110 pg/mL (3.0-78.0)
[2024-07-20 19:00] LABS: Mucous, Urine 0 SEEN /hpf (<or=2+); Red Blood Cells-Urine 0 SEEN /hpf (0-5); Squamous Epithelial Cells - UA 0 SEEN /hpf (0-5)
--- NOTE | 2024-07-20 19:00 | RAD_ITS ---
STUDY: X-RAY CHEST REASON FOR EXAM: Male, 73 years old. Syncope TECHNIQUE: AP portable view of the chest. COMPARISON: September 26, 2015 FINDINGS: The lungs are clear and expanded. There is no demonstrated pleural abnormality. Normal size heart. Normal mediastinum and nilda. Normal visualized pulmonary arteries. There is atherosclerotic calcification of the aortic arch. There is demineralization of the osseous structures. Normal visualized ribs, clavicles, and shoulders. There is no demonstrated abnormality of the visualized soft tissue structures of the upper abdomen. RAD/Chest 1 View (Portable) IMPRESSION: Degenerative changes, as described above. No demonstrated acute cardiopulmonary process. Electronically Signed: Josef Diallo MD at 19:29 EDT ,
[2024-07-20 19:04] LABS: Absolute Lymphocyte Count 0.94 X10^3/uL (0.83-4.51); Basophil# 0.12 X10^3/uL; Eosinophil# 0.17 X10^3/uL; Eosinophils% 1.4 % (0-5); Hematocrit 42.4 % (40-54); Hemoglobin 14.4 g/dL (13.0-16.5); Lymphocyte # 0.94 X10^3/ul (0.83-4.51); Lymphocyte % 7.8 % (19-41); Mean Corpuscular Hgb 32.7 pg (27.0-32.0); Mean Corpuscular Volume 96.1 fL (80-94); Mean Platelet Vol. 9.8 fl (6.2-12.0); Monocyte# 0.78 X10^3/uL; Monocyte% 6.5 % (0-10); NRBC Flagged by Analyzer 0 % (0-5); Neutrophil # 9.95 X10^3/uL (2.7-7.7); Neutrophil % 82.8 % (47-70); Platelet Count 269 K/mm3 (150-450); RBC Distribution Width CV 12.6 % (11.6-14.6); RBC Distribution Width SD 44.9 fl (35.1-43.9); Red Blood Count 4.41 M/mm3 (4.6-6.2)
[2024-07-20 19:14] LABS: Amphetamine Urine VISTA NEGATIVE (<1000 ng/mL); Barbiturate Urine VISTA NEGATIVE (< 200 ng/mL); Benzodiazepine Urine VISTA NEGATIVE (< 200 ng/mL); Cocaine Urine VISTA NEGATIVE (< 300 ng/mL); Ecstacy Urine VISTA NEGATIVE (< 500 ng/mL); Methadone Urine VISTA NEGATIVE (< 300 ng/mL); PCP Urine VISTA NEGATIVE (< 25 ng/mL); THC Urine VISTA NEGATIVE (< 50 ng/mL); Vista UDS pH Range 4
[2024-07-20 19:18] LABS: Lactic Acid 2.4 mmol/L (0.4-1.9)
--- NOTE | 2024-07-20 19:21 | CT_ITS ---
STUDY: CT BRAIN WITHOUT CONTRAST REASON FOR EXAM: Male, 73 years old. AMS RADIATION DOSAGE (If Supplied By Facility): CTDIvol = ( 44.99 ) mGy, DLP = ( 846.73 ) mGycm TECHNIQUE: Transaxial CT imaging of the brain was performed without administration of intravenous contrast material. Individualized dose optimization techniques were used for this CT. COMPARISON: No relevant priors. FINDINGS: Normal soft tissue structures. Normal calvarium. There is mild cerebral atrophy with widening of the extra-axial spaces and ventricular dilatation. Normal white matter tracts of the cerebral hemispheres. Normal basal ganglia and thalami. Normal brainstem. Normal cerebellum. There is no intracranial hemorrhage. There are no findings of an acute ischemic infarction. Normal visualized paranasal sinuses. CT/Brain/Head without Contrast IMPRESSION: Chronic involutional changes of the brain. Electronically Signed: Josef Diallo MD at 20:01 EDT ,
[2024-07-20 19:26] LABS: Color, Urine Yellow (Yellow); Glucose, Dipstick Normal (Normal); Ketone-Dipstick Negative (Negative); Leukocyte Esterase-Dipstick 25 /ul (Negative); Nitrite-Dipstick Negative (Negative); Occult Blood-Urine Negative /ul (Negative); Protein-Dipstick 30 mg/dl (Negative); Specific Gravity, Urine 1.025 (1.002-1.030); Urine Bilirubin Dipstick Negative (Negative); Urine Clarity Clear (Clear); Urine Urobilinogen 1 mg/dl (Normal)
[2024-07-20 19:31] LABS: International Normalized Ratio 1.2; Partial Thromboplast Time 28.1 Seconds (24.1-36.2); Prothrombin Time (Protime)PT. 15.4 SECONDS (11.7-14.9)
[2024-07-20 19:34] LABS: Hyaline Cast 50-100 SEEN /lpf (0-5)
[2024-07-20 19:42] LABS: Bacteria 2+ /hpf (None Seen); Renal Epithelial Cells 5-10 SEEN /hpf (0-5); Transitional Epithelial - Ur 0-5 SEEN /hpf (0-5); White Blood Cells 0-5 SEEN /hpf (0-5)
--- NOTE | 2024-07-20 20:15 | CT_ITS ---
STUDY: CTA CHEST REASON FOR EXAM: Male, 73 years old. PE RADIATION DOSAGE (If Supplied By Facility): CTDIvol = ( 9.97 ) mGy, DLP = ( 459.00 ) mGycm TECHNIQUE: The examination was performed with the intravenous administration of IV 100mL [id number]. Post-processing of the angiographic images was performed, with multiplanar reformation and 3D reconstruction. Individualized dose optimization techniques were used for this CT. COMPARISON: June 17, 2024 FINDINGS: Normal enhancement of the main pulmonary artery and right and left pulmonary arteries. Normal enhancement of the bilateral peripheral pulmonary arteries. There is no demonstrated pulmonary embolism. There is atherosclerotic calcification of the aortic arch with tortuosity. There is no demonstrated aortic dissection. There are calcifications of the coronary arteries. Normal mediastinum. Normal hilar regions. Normal visualized trachea and bronchi. The lungs are well expanded. There are mild interstitial increased opacities of the lungs. There is 0.9 x 0.7 cm right lower lobe nodule, series 2 image 123. There is lower lung atelectasis. Normal pleura. Normal chest wall structures. There are degenerative changes of thoracic spine. There are multiple gallstones. CT/CTA Chest W/WO Contrast IMPRESSION: CTA chest examination, without a demonstrated pulmonary embolism or arterial dissection. Lower lung atelectasis. Right lower lung nodule is similar to prior exams. Electronically Signed: Josef Diallo MD at 21:18 EDT ,
[2024-07-20] MEDS: 0.9% Normal Saline (1000mL) 1,000 ML 999 ML IV ×2 (21:14→22:00)
[2024-07-20 22:38] LABS: Reflex Lactate? Y
[2024-07-20 23:21] LABS: Lactic Acid 0.8 mmol/L (0.4-1.9)
[2024-07-20 23:57] LABS: Troponin-I HS 196 pg/mL (3.0-78.0)
[2024-07-21] VITALS (10 sets, daily range): BP systolic 85–107; BP diastolic 47–63; PULSE 61–90; RESP 14–24; TEMP 36.4–36.9; O2SAT 93–95; BMI 25.4
--- NOTE | 2024-07-21 00:48 | ED.RN ---
Pt BP consistently with MAP under 65. Dr. Camarillo aware, passed care off to Dr. Chandler. Manual BP 80/42, automatic BP 80/50. Dr. Chandler new order for 5th liter of fluid.
[2024-07-21] MEDS: 0.9% Normal Saline (1000mL) 1,000 ML 999 ML IV (00:52)
--- NOTE | 2024-07-21 02:06 | PCM.HP.STD ---
[facility] - General General Date of Admission: 07/21/24 Date of Service: 07/14/24 Chief Complaint: Fever, Hypotension, Syncope and Transient AMS. HPI Narrative ANEL HENRY, is a 73 M with a past medical history of essential hypertension, hyperlipidemia, hypothyroidism, overweight; with BMI of 25.7 this admission, history of tobacco abuse, prediabetes; on Metformin, BPH, history of Right hand surgery, OA and listed allergy to PCN who presents to [facility] ER complaining of fever, hypotension, syncope and transient altered mental status. Mr. Henry was initially a prehospital stroke alert patient after his noted that he went to mow the lawn around noon and then she went to take a nap and when she woke up she found the riding mower still running and when she looked further she found him lying in the grass nonverbal and she then quickly activated EMS. Emergency personnel noted that he was febrile to 101.8 degrees Fahrenheit and his informed them he had a similar unresponsive episode ~1 month ago after he was exerting himself on a hot day to clear tree limbs and other debris from their lawn but he did not seek medical attention at that time because his symptoms resolved spontaneously with no recurrence - until now. She also denies he has ever had formal cardiac stress testing or known CAD. His denied any other recent illness, recent trauma, recent medication changes or a known previous history of persistent and symptomatic hypotension. There was also no report of associated nausea, vomiting, diarrhea, constipation, chest pain or palpitations but he does admit to SOB and feeling so weak in his arms he could not push himself up off of the ground with residual soreness in his elbows and shoulders. He was noted to have a negative UDS, a ROBERTO of only 7 mg/dL and UA positive for hyaline casts but negative for acute infection along with an appropriately elevated random serum cortisol level of 49.5 ug/dL present on admission. In the ER his temperature spiked to 102.8 degrees Fahrenheit with a corresponding low blood pressure of 95/53 mmHg at 18:31 hours with patient treated with Tylenol and 3L of IVF with no fevers noted since 21:06 hours. Therefore, antibiotics were not given with virtually negative CXR, Head CT and CTA of chest along with mild Leukocytosis of 12K and mild Lactic Acidosis of 2.4 mmol/L present on admission suspected to be due to Acute Heat Stroke with possible Adverse Drug Reaction to Metformin complicated by suspected mild early rhabdomyolysis with total CK 311 U/L and an elevated troponin of 110 pg/mL present on admission thought to be due to Acute Cardiac Strain in the setting of suspected underlying Coronary Ischemia causing recurrent Syncope and he was then admitted to the PCU for ongoing care for a stay that is expected to extend beyond 2 midnights. [facility] Medical History Prediabetes Home Medications ?Medication ?Instructions ?Recorded ?Last Taken ?Type aspirin 81 mg tablet,delayed 81 mg PO DAILY 07/20/24 Unknown History release (Adult Low Dose Aspirin) atorvastatin 20 mg tablet 20 mg PO DAILY 07/20/24 Unknown History levothyroxine 150 mcg tablet 150 mcg PO DAILY 07/20/24 Unknown History lisinopril 10 1 tab PO DAILY 07/20/24 Unknown History mg-hydrochlorothiazide 12.5 mg tablet metformin 500 mg tablet 500 mg PO BID 07/20/24 Unknown History tamsulosin 0.4 mg capsule 0.4 mg PO DAILY 07/20/24 Unknown History Allergy/AdvReac Type Severity Reaction Status Date / Time Penicillins (PCN) Allergy PT UNABLE Verified 07/20/24 19:02 TO RESPOND-NEEDS F/U poison lisette extract AdvReac Mild Hives Verified 07/20/24 19:02 Surgical History H/O hand surgery Social History household members: spouse housing: house Smoking Status: Current every day smoker tobacco type: cigarettes ROS ROS Narrative Review of Systems: General: Patient admits to fever and has facial flushing but he denies chills or weight loss. HENT: Denies headache, denies stuffy nose, denies sore throat EYES: Denies changes in vision or discharge from eyes. Resp: Patient admits to shortness of breath but denies cough. Cardiac: Denies chest pain but he does admit to syncope x 2 in the past month. He also denies palpitations or heart racing. GI: Denies abdominal pain, denies changes in bowel, denies nausea or vomiting. : Denies changes in urination Extremity: Denies swelling Musculoskeletal: Feels somewhat generally weak and unwell but he denies arthralgias or myalgias. Neuro: Patient denies headache, paresthesias or persistent focal neurologic deficits. Heme: Denies any bleeding or bruising Skin: Patient has significant persistent facial redness consistent with suspected sunburn. Psychiatric: No complaints voiced related to uncontrolled depression or anxiety. Endocrine: No polyuria, polydipsia or polyphagia. The rest of the 14 point ROS was negative except for positives in HPI. Vital Signs Vital Signs Vital Signs: 07/20/24 18:13 07/20/24 18:21 07/20/24 18:31 Temperature 101.8 F H 102.8 F H Temperature Source Temporal Oral Pulse Rate 117 H 115 H Respiratory Rate 32 H 43 H Blood Pressure 100/59 L 95/53 L Blood Pressure Mean 72 67 Pulse Ox 94 95 95 Oxygen Delivery Method Nasal Cannula Nasal Cannula Nasal Cannula Oxygen Flow Rate (L/min) 2 2 2 07/20/24 19:19 07/20/24 20:25 07/20/24 21:00 Temperature 100.1 F H Temperature Source Axillary Pulse Rate 88 97 97 Respiratory Rate 25 H 25 H 20 H Blood Pressure 91/50 L 90/51 L 80/51 L Blood Pressure Mean 63 64 60 Pulse Ox 97 98 98 Oxygen Delivery Method Nasal Cannula Nasal Cannula Room Air Oxygen Flow Rate (L/min) 3 07/20/24 21:06 07/20/24 21:21 07/20/24 21:36 Temperature 97.7 F L 97.7 F L 97.7 F L Temperature Source Oral Oral Oral Pulse Rate 97 90 99 Respiratory Rate 20 H 13 15 Blood Pressure 80/51 L 92/48 L 81/59 L Blood Pressure Mean 60 62 66 Pulse Ox 98 96 99 Oxygen Delivery Method Nasal Cannula Nasal Cannula Oxygen Flow Rate (L/min) 3 3 07/20/24 21:51 07/20/24 22:00 07/20/24 23:00 Temperature 97.6 F L 97.6 F L Temperature Source Oral Oral Pulse Rate 83 85 84 Respiratory Rate 13 15 18 Blood Pressure 84/47 L 84/47 L 82/55 L Blood Pressure Mean 59 59 64 Pulse Ox 97 98 96 Oxygen Delivery Method Nasal Cannula Nasal Cannula Room Air Oxygen Flow Rate (L/min) 3 3 07/21/24 00:00 07/21/24 01:00 07/21/24 01:10 Temperature 97.7 F L 97.7 F L Temperature Source Oral Pulse Rate 84 90 82 Respiratory Rate 14 24 H 20 H Blood Pressure 87/47 L 87/60 L 87/60 L Blood Pressure Mean 60 69 69 Pulse Ox 95 94 95 Oxygen Delivery Method Room Air Room Air Oxygen Flow Rate (L/min) Weight Weight: 189 lb 2.506 oz Body Mass Index (BMI) 25.6 Physical Exam Const alert, oriented x3, no apparent distress, average body habitus and healthy appearing General Appearance: cooperative HEENT hearing grossly normal bilaterally and moist oral mucous membranes HEENT Narrative: Patient has ~5 cm abrasion over his Left cheek. Patient also modestly hard of hearing. Eyes PERRL and EOMs intact bilaterally Neck no lymphadenopathy and supple Resp normal respiratory effort, no retractions, no use of accessory muscles and clear to auscultation bilaterally Cardio regular rate and regular rhythm GI normal to inspection, nondistended, normoactive bowel sounds, soft to palpation, non-tender and non-distended Extremity normal to inspection, full ROM and no clubbing, cyanosis or edema Skin Skin Narrative: Patient has no evidence of rash, abscess or jaundice. Neuro oriented x3, CN's II-XII intact bilaterally, moves all extremities and no focal motor deficits Sensorium / Orientation: awake, alert, oriented to person, oriented to place and oriented to time Speech: speech normal Psych affect normal Results Medical Records Data Attestation: I reviewed the patient's medical records Lab / Micro Data Attestation: I reviewed the patient's lab results. 07/20/24 18:10 07/20/24 18:10 Labs: Laboratory Results - last 24 hr 07/20/24 18:10: WBC 12.0 H, RBC 4.41 L, Hgb 14.4, Hct 42.4, MCV 96.1 H, MCH 32.7 H, MCHC 34.0, RDW Std Deviation 44.9 H, RDW Coeff of Adeel 12.6, Plt Count 269, MPV 9.8, Immature Gran % (Auto) 0.500, Neut % (Auto) 82.8 H, Lymph % (Auto) 7.8 L, [place] % (Auto) 6.5, Eos % (Auto) 1.4, Baso % (Auto) 1.0, Absolute Neuts (auto) 10.0 H, Absolute Lymphs (auto) 0.94, Nucleated RBC % 0, PT 15.4 H, INR 1.2, APTT 28.1, Sodium 139, Potassium 4.7, Chloride 111 H, Carbon Dioxide 22.0, Anion Gap 6, BUN 21 H, Creatinine 1.43 H, Estim Creat Clear Calc 48.99, Est GFR (MDRD) Af Amer 62, Est GFR (MDRD) Non-Af 51 L, BUN/Creatinine Ratio 14.7, Glucose 139 H, Calcium 9.7, Total Bilirubin 0.60, Direct Bilirubin 0.21, AST 20, ALT 24, Alkaline Phosphatase 58, Total Creatine Kinase 311 H, Troponin I High Sens 110 H, B-Natriuretic Peptide 51.0, Total Protein 6.8, Albumin 3.5, Globulin 3.3, Lipase 46 07/20/24 18:34: Lactic Acid 2.4 H*, Ethyl Alcohol 7.0 07/20/24 18:38: Urine Color Yellow, Urine Clarity Clear, Urine pH 5.0, Ur Specific [place] 1.025, Urine Protein 30 H, Urine Glucose (UA) Normal, Urine Ketones Negative, Urine Occult Blood Negative, Urine Nitrite Negative, Urine Bilirubin Negative, Urine Urobilinogen 1 H, Ur Leukocyte Esterase 25 H, Urine RBC 0 SEEN, Urine WBC 0-5 SEEN, Ur Squamous Epith Cells 0 SEEN, Ur Transition Epith Cell 0-5 SEEN, Ur Renal Epithelial Cell 5-10 SEEN, Urine Bacteria 2+, Hyaline Casts 50-100 SEEN, Urine Mucus 0 SEEN, Urine Opiates Screen NEGATIVE, Urine Methadone Screen NEGATIVE, Ur Barbiturates Screen NEGATIVE, Ur Phencyclidine Scrn NEGATIVE, Ur Amphetamines Screen NEGATIVE, MDMA (Ecstasy) Screen NEGATIVE, U Benzodiazepines Scrn NEGATIVE, Urine Cocaine Screen NEGATIVE, U Cannabinoids Screen NEGATIVE, Ur Drug Screen Comment 07/20/24 22:46: Lactic Acid 0.8 07/20/24 23:20: Troponin I High Sens 196 H* Micro: Microbiology 07/20/24 18:38 Mucosa - Nose SARS-CoV-2, Influenza & RSV (PCR) - Final Imaging Radiology Impression Chest X-Ray 07/20/24 19:00 IMPRESSION: Degenerative changes, as described above. No demonstrated acute cardiopulmonary process. Electronically Signed: Josef Diallo MD at 19:29 EDT , Brain CT 07/20/24 19:21 IMPRESSION: Chronic involutional changes of the brain. Electronically Signed: Josef Diallo MD at 20:01 EDT , Chest CTA 07/20/24 20:15 IMPRESSION: CTA chest examination, without a demonstrated pulmonary embolism or arterial dissection. Lower lung atelectasis. Right lower lung nodule is similar to prior exams. Electronically Signed: Josef Diallo MD at 21:18 EDT Reading Location ID and State: [facility] / [place] , Service support , Assessment & Plan Assessment/Plan (1) Heat stroke: QUALIFIERS: Encounter type: initial encounter Qualified Code(s): T67.01XA - Heatstroke and sunstroke, initial encounter (2) Syncope and collapse: (3) Unresponsive episode: (4) Elevated troponin: (5) Acute hypotension: (6) Adverse drug reaction: QUALIFIERS: Encounter type: initial encounter Qualified Code(s): T50.905A - Adverse effect of unspecified drugs, medicaments and biological substances, initial encounter (7) Rhabdomyolysis: QUALIFIERS: Encounter type: initial encounter Rhabdomyolysis type: traumatic Qualified Code(s): T79.6XXA - Traumatic ischemia of muscle, initial encounter PLAN: Plan 1. Acute Heat Stroke with temperature that spiked to 102.8 degrees Fahrenheit with a corresponding low blood pressure of 95/53 mmHg at 18:31 hours with patient treated with Tylenol and 3L of IVF with no fevers noted since 21:06 hours with no antibiotics given - Admit to PCU. Patient still hypotensive in the low 90 mmHg systolic range in spite of 4L IVF since admission raising suspicion or reduced LVEF. 2. Adverse Drug Reaction to Metformin used to treat prediabetes likely complicating #1 with mild Leukocytosis of 12K and mild Lactic Acidosis of 2.4 mmol/L present on admission - Stop Metformin and serialize lactate to ensure improvement. Also recheck CBC in AM to follow trend of response to conservative medical management. Check HgbA1c to confirm or deny current diabetic status. 3. Mild early rhabdomyolysis with total CK 311 U/L after being found down after a likely prolonged period of time compounding #1 & #2 - Aggressively volume resuscitate and recheck total CK to document trend. 4. Acute Cardiac Strain with an elevated initial troponin of 110 pg/mL present on admission rising to 194 pg/mL on second check in the setting of a previous episode of unresponsiveness with a prior similar syncopal event ~1 month ago also primarily suspected to be of cardiac origin adding to the medical complexity of #1 - #3 - Continue BASA and statin as previous. Serialize troponin. Check echocardiogram to evaluate LVEF with persistent hypotension and spite of aggressive volume resuscitation suspicious for low EF. Check Lexiscan NST to evaluate for potential underlying ischemia with a presentation of syncope with SCD. 5. BPH; on Tamsulosin - Continue this agent for now but if his above workup is unrevealing and his syncope continues consider stopping this agent. 6. Essential hypertension - Hold scheduled antihypertensives with persistent hypotension noted since admission. 7. Hyperlipidemia - Resume statin and check Lipid Profile in light of #1. 8. Hypothyroidism - Maintain Synthroid at current dosing and check TSH in light of #1 - #6. 9. Overweight; with BMI of 25.7 this admission - Weight loss will be recommended. 10. History of tobacco abuse - Noted. 11. History of Right hand surgery - Noted. 12. OA - Give Tylenol prn. 13. Listed allergy to PCN - Avoid this class of agents. 14. DVT prophylaxis - Lovenox 40 mg sq daily. Total time: Approximately 75 minutes. Sepsis Attestation Sepsis Alert: Yes Sepsis Attestation: Sepsis Ruled Out Date exam was performed: 07/21/24 Time exam was performed: 01:00 Possible Source of Sepsis: Unknown Sepsis Organ Dysfunction Criteria Present: SBP < 90 mmHg or MAP < 65 mmHg, Lactic Acid > 2 mmol/L and New/Unexplained change in mental status Fluid Resuscitation Fluid resuscitation indicated?: Yes Fluid Resuscitation ordered: 30 ml/kg fluid bolus ordered Amount of fluid ordered: 3 Sepsis Note Date exam was performed: 07/21/24 Time exam was performed: 05:00 Sepsis Attestation: Sepsis re-evaluation was performed Response to fluids: Fluid responsive hypotension Charges/Coding Visit Charges Inpatient E&M: 06354 Init Hosp L3
--- NOTE | 2024-07-21 02:56 | ECHOD_ITS ---
Reason For Study: SYNCOPE/NEAR SYNCOPE Procedure This was a 2D Doppler, Color Flow transthoracic echocardiogram. The study was technically difficult. Due to bilateral shoulder pain and body habitus. Exam performed portable in patient room. Left Ventricle Normal LV size. Left ventricular systolic function is normal. Stage 1 diastolic dysfunction. The left ventricular ejection fraction is 60 %. No regional wall motion abnormalities noted. Right Ventricle Normal RV size. Normal systolic function. Atria Normal left atrium. Normal right atrium. Bubble contrast study negative for right to left interatrial shunt. Mitral Valve Normal mitral valve. Tricuspid Valve Normal tricuspid valve. Aortic Valve Trisinus/trileaflet aortic valve. Pulmonic Valve Normal pulmonic valve. Great Vessels Normal aortic root. The pulmonary artery is normal size. Normal inferior vena cava. Pericardium/Pleural No pericardial effusion. Medication Performed a rapid injection of agitated mix of 9 cc saline and 1cc air to assess for atrial septal defect. MMode/2D Measurements & Calculations LVIDd: 5.1 cm FS: 36.3 % LA dimension: 3.5 cm LVIDs: 3.3 cm RVDd: 3.4 cm LAV(MOD-bp): 33.8 ml LVAd ap4: 34.2 cm2 LVAd ap2: 29.5 cm2 LAV(MOD-bp) Indexed: 16.2 ml/m2 LVLd ap4: 9.1 cm LVLd ap2: 8.5 cm LAV(MOD-sp2): 34.5 ml EDV(MOD-sp4): 108.9 ml EDV(MOD-sp2): 84.6 ml LAV(MOD-sp4): 32.6 ml EDV(sp4-el): 109.4 ml EDV(sp2-el): 86.6 ml LVAs ap4: 16.0 cm2 LVAs ap2: 15.3 cm2 LVLs ap4: 6.8 cm LVLs ap2: 6.8 cm ESV(MOD-sp4): 32.6 ml ESV(MOD-sp2): 28.3 ml ESV(sp4-el): 32.0 ml ESV(sp2-el): 28.9 ml EF(MOD-sp4): 70.0 % EF(MOD-sp2): 66.6 % EF(sp4-el): 70.8 % SV(MOD-sp4): 76.3 ml SV(MOD-sp2): 56.3 ml SV(sp4-el): 77.4 ml LA A4 area: 14.0 cm2 RA A4 area: 14.5 cm2 TAPSE: 1.9 cm Time Measurements MV dec time: 0.24 sec Doppler Measurements & Calculations MV E max raymundo: 73.6 cm/sec Lat Peak E' Raymundo: 11.3 cm/sec Med Peak E' Raymundo: 9.1 cm/sec MV A max raymundo: 90.7 cm/sec E/E' lat: 6.5 E/E' med: 8.1 MV E/A: 0.81 MV V2 max: 116.1 cm/sec MV P1/2t max raymundo: 89.3 cm/sec Ao V2 max: 111.0 cm/sec MV max P.4 mmHg MV P1/2t: 65.7 msec Ao max P.9 mmHg MV V2 mean: 67.2 cm/sec Ao V2 mean: 74.6 cm/sec MV mean P.0 mmHg MV dec slope: 398.2 cm/sec2 Ao mean P.4 mmHg MV V2 VTI: 27.7 cm MVA(P1/2t): 3.4 cm2 Ao V2 VTI: 22.6 cm AV (velocity ratio): 0.70 LV V1 max: 72.2 cm/sec PA V2 max: 63.1 cm/sec LV V1 max P.1 mmHg PA V2 mean: 51.7 cm/sec LV V1 mean P.91 mmHg LV V1 mean: 44.9 cm/sec LV V1 VTI: 15.8 cm ECHO/Echo Complete Interpretation Summary Normal LV size. Left ventricular systolic function is normal. Stage 1 diastolic dysfunction. The left ventricular ejection fraction is 60 %. Bubble contrast study negative for right to left interatrial shunt. Ordering Physician: Aleksandr Cee Referring Physician: Peña Pulido Performed By: Geno Gonzalez, ALEXISCS, RVT
--- NOTE | 2024-07-21 02:56 | CDU_ITS ---
Reason For Study: Syncope Rt. Velocities/BP Lt. Velocities/BP Prox CCA 113.1/16.3 cm/sec. Prox CCA 103.9/18.1 cm/sec. Mid CCA 116.7/19.9 cm/sec. Mid CCA 93.2/17.1 cm/sec. Dist CCA 87.5/18.1 cm/sec. Dist CCA 78.5/14.6 cm/sec. Prox ICA 78.5/14.6 cm/sec. Prox ICA 88.3/19.5 cm/sec. Mid ICA 56.4/14.6 cm/sec. Mid ICA 88.3/23.2 cm/sec. Dist ICA 79.7/23.2 cm/sec. Dist ICA 82.4/22.9 cm/sec. Rt. ICA/CCA = 0.7. Lt. ICA/CCA = 0.9. Prox ECA 135.2/5.7 cm/sec. Prox ECA 124.7/15.9 cm/sec. Rt. Vert. 33.0/12.2 cm/sec. Lt. Vert. 89.3/19.9 cm/sec. Right Extracranial There is intimal thickening but no significant atherosclerotic plaque noted in the right common carotid artery. There is heterogeneous, irregular atherosclerotic plaque noted in the right internal carotid artery. There is heterogeneous, irregular atherosclerotic plaque noted in the right external carotid artery. Antegrade flow is noted in the right vertebral artery. Left Extracranial There is intimal thickening but no significant atherosclerotic plaque noted in the left common carotid artery. There is heterogeneous, irregular atherosclerotic plaque noted in the left internal carotid artery. There is heterogeneous, irregular atherosclerotic plaque noted in the left external carotid artery. Antegrade flow is noted in the left vertebral artery. Procedure Carotid Duplex [id number]. This is a Carotid Duplex examination using B-mode, color flow and specral Doppler. The exam was diagnostic. Exam performed in department. VL/Carotid Duplex Ultrasound Interpretation Summary Mild (<50%) stenosis right extracranial internal carotid. Mild (<50%) stenosis left extracranial internal carotid. Patent and antegrade vertebrals bilaterally. Ordering Physician: Aleksandr Cee Referring Physician: Peña Pulido Performed By: Cole Bolanos RVT
[2024-07-21 03:27] LABS: Thyroid Stim Hormone (TSH) 0.202 uIU/mL (0.358-3.740)
[2024-07-21] MEDS: Acetaminophen 325 MG Tablet 650 MG PO (04:03)
[2024-07-21] MEDS: Lactated Ringers 1,000 ML 150 ML IV (04:44)
[2024-07-21] MEDS: 0.9% Saline Lock 10 ML Syringe IV (04:44)
[2024-07-21] MEDS: Aspirin E.C. 81 MG Tablet PO (04:52)
[2024-07-21] MEDS: Levothyroxine 150 MCG Tablet PO (04:52)
[2024-07-21 06:14] LABS: Cholesterol 81 mg/dL (200); High Density Lipoprotein 28 mg/dL; Triglycerides 93 mg/dL; Troponin-I HS 187 pg/mL (3.0-78.0); Very Low Density Lipoprotein 19 mg/dL (5-40)
[2024-07-21 06:47] LABS: T4 Free Direct 1.47 ng/dL (0.76-1.46)
[2024-07-21 09:54] LABS: Anion Gap 6 (5-15); BUN 22 mg/dL (7-18); BUN/Creat Ratio 17.3 RATIO (10-20); Calcium,Total 8.6 mg/dL (8.5-10.1); Chloride 117 mmol/L (98-107); Creatinine, Serum 1.27 mg/dL (0.70-1.30); EST Glomerular Filtration Rate 59 mL/min (>60); Est Glom Filt Rate - Afr Amer 71 mL/min (>60); Estimated Creatinine Clearance 55.16 ml/min; Glucose 107 mg/dL (74-106); Potassium 4.1 mmol/L (3.5-5.1); Sodium Level 142 mmol/L (136-145)
[2024-07-21 10:01] LABS: Hematocrit 40.5 % (40-54); Hemoglobin 13.3 g/dL (13.0-16.5); Mean Corp Hgb Conc 32.8 g/dL (32-36); Mean Corpuscular Hgb 32.4 pg (27.0-32.0); Mean Corpuscular Volume 98.8 fL (80-94); Platelet Count 186 K/mm3 (150-450); RBC Distribution Width CV 13.1 % (11.6-14.6); White Blood Count 12.7 K/mm3 (4.4-11.0)
[2024-07-21] MEDS: Tamsulosin HCl 0.4 MG Capsule PO (11:41)
[2024-07-21] MEDS: Enoxaparin 30 MG/0.3 ML Syringe SC (11:41)
--- NOTE | 2024-07-21 11:51 | STRESSREP ---
Stress Test Report Pharmacologic myocardial perfusion stress test. 73-year-old male with a history of syncope Resting EKG demonstrates sinus rhythm with a rate of 67 bpm. Resting blood pressure is 96/60 mmHg. 0.4 mg of regadenoson was infused per usual protocol followed by rapid intravenous saline flush injection. Continuous EKG monitoring was performed. The maximum heart rate was 85 bpm which was 58% of max impacted heart rate the maximum workload was 1 metabolic equivalent. At rest there were no ST or T wave changes noted to suggest ischemia and at peak infusion nonspecific ST changes were noted which did not meet the criteria for ischemia. No clinical angina is noted. The final blood pressure was 90/50 mmHg. Myocardial perfusion protocol. 14 point mCi of technetium 99m sestamibi was injected at rest. 0.4 mg of regadenoson was infused per usual protocol. At peak infusion 45 mCi of technetium 99m sestamibi was injected stress images were obtained stress and rest images were reconstructed and compared in the short axis vertical long and horizontal long axis. Gated images were also obtained. Perfusion SPECT analysis: Review of the stress images demonstrate normal uptake of tracer noted in all areas of the myocardium. The resting images similar demonstrated normal uptake of tracer noted in all areas of the myocardium. No areas of reversibility are noted to suggest ischemia and no previous infarct is noted. Gated SPECT analysis: The gated ejection fraction is 51%. Conclusion: Normal pharmacologic myocardial perfusion stress test. Preserved ejection fraction.
[2024-07-21] MEDS: FLU VACCINE **HIGH DOSE** TV 24-25 180 MCG/0.5 ML SYRINGE IM (11:56)
--- NOTE | 2024-07-21 13:41 | PN.HOSP_ITS ---
Reason for Visit Reason for Visit: Diagnoses Hypotension, unspecified (07/21/24) Rhabdomyolysis (07/21/24) Transient alteration of awareness (07/21/24) Syncope and collapse (07/21/24) Other specified abnormal findings of blood chemistry (07/21/24) Adverse effect of unspecified drugs, medicaments and biological substances, initial encounter (07/21/24) Heatstroke and sunstroke, initial encounter (07/21/24) Traumatic ischemia of muscle, initial encounter (07/21/24) Subjective Subjective Patient admitted early this morning for further workup after a syncopal episode at home. He was found down outside in the grass by his while he was mowing the lawn. noted that he was out for few minutes and was somewhat confused when he regained consciousness. On arrival to the ED, he was noted to have a fever to 102 and was very dry appearing on exam. Received IV fluids and Tylenol overnight and was admitted for further management. I saw the patient at bedside this morning, and son were present. Patient notably is very hard of hearing. He was mildly fatigued appearing this morning but otherwise was making appropriate eye contact and answering all questions appropriately for me. He remembered that he was mowing the lawn yesterday afternoon and remembered feeling hot and sweaty prior to passing out. He does not remember the syncopal episode or much again until he was in the ED. He states that this morning he feels about back to his normal. states that he looks much improved this morning compared to overnight. Patient had completed the stress test and echocardiogram before my encounter and results are pending. No other new concerns this morning. Objective Data Objective Data Vital Signs: Vital Signs Temp Pulse Resp BP Pulse Ox O2 Del Method O2 Flow Rate 97.7 F L 68 16 98/63 94 Room Air 3 07/21/24 11:07/21/24 11:07/21/24 11:00 07/21/24 11:07/21/24 11:07/21/24 11:07/20/24 22:00 Oxygen Flow Rate (L/min) 3 Oxygen Delivery Method Room Air Weight: 85.1 kg Body Mass Index (BMI) 25.4 Intake & Output: Intake and Output for Last 24 Hours 07/19/24 07/20/24 07/21/24 23:59 23:59 23:59 Intake Total 4000 / 4000 1999 / 1999 Output Total 1150 / 1150 1900 / 1900 Balance 2850 / 2850 100 / 100 Lab / Micro Data 07/21/24 05:10 07/21/24 05:10 Labs: Laboratory Results - last 24 hr 07/20/24 18:10: WBC 12.0 H, RBC 4.41 L, Hgb 14.4, Hct 42.4, MCV 96.1 H, MCH 32.7 H, MCHC 34.0, RDW Std Deviation 44.9 H, RDW Coeff of Adeel 12.6, Plt Count 269, MPV 9.8, Immature Gran % (Auto) 0.500, Neut % (Auto) 82.8 H, Lymph % (Auto) 7.8 L, [place] % (Auto) 6.5, Eos % (Auto) 1.4, Baso % (Auto) 1.0, Absolute Neuts (auto) 10.0 H, Absolute Lymphs (auto) 0.94, Nucleated RBC % 0, PT 15.4 H, INR 1.2, APTT 28.1, Sodium 139, Potassium 4.7, Chloride 111 H, Carbon Dioxide 22.0, Anion Gap 6, BUN 21 H, Creatinine 1.43 H, Estim Creat Clear Calc 48.99, Est GFR (MDRD) Af Amer 62, Est GFR (MDRD) Non-Af 51 L, BUN/Creatinine Ratio 14.7, Glucose 139 H, Calcium 9.7, Total Bilirubin 0.60, Direct Bilirubin 0.21, AST 20, ALT 24, Alkaline Phosphatase 58, Total Creatine Kinase 311 H, Troponin I High Sens 110 H , B-Natriuretic Peptide 51.0, Total Protein 6.8, Albumin 3.5, Globulin 3.3, Lipase 46 07/20/24 18:34: Lactic Acid 2.4 H*, Cortisol 49.50 H, Ethyl Alcohol 7.0 07/20/24 18:38: Urine Color Yellow, Urine Clarity Clear, Urine pH 5.0, Ur Specific [place] 1.025, Urine Protein 30 H, Urine Glucose (UA) Normal, Urine Ketones Negative, Urine Occult Blood Negative, Urine Nitrite Negative, Urine Bilirubin Negative, Urine Urobilinogen 1 H, Ur Leukocyte Esterase 25 H, Urine RBC 0 SEEN, Urine WBC 0-5 SEEN, Ur Squamous Epith Cells 0 SEEN, Ur Transition Epith Cell 0-5 SEEN, Ur Renal Epithelial Cell 5-10 SEEN, Urine Bacteria 2+, Hyaline Casts 50-100 SEEN, Urine Mucus 0 SEEN, Urine Opiates Screen NEGATIVE, Urine Methadone Screen NEGATIVE, Ur Barbiturates Screen NEGATIVE, Ur Phencyclidine Scrn NEGATIVE, Ur Amphetamines Screen NEGATIVE, MDMA (Ecstasy) Screen NEGATIVE, U Benzodiazepines Scrn NEGATIVE, Urine Cocaine Screen NEGATIVE, U Cannabinoids Screen NEGATIVE, Ur Drug Screen Comment 07/20/24 22:46: Lactic Acid 0.8 07/20/24 23:20: Troponin I High Sens 196 H*, TSH 0.202 L 07/21/24 05:10: WBC 12.7 H, RBC 4.10 L, Hgb 13.3, Hct 40.5, MCV 98.8 H, MCH 32.4 H, MCHC 32.8, RDW Std Deviation 47.0 H, RDW Coeff of Adeel 13.1, Plt Count 186, MPV 10.0, Sodium 142, Potassium 4.1, Chloride 117 H, Carbon Dioxide 19.0 L, Anion Gap 6, BUN 22 H, Creatinine 1.27, Estim Creat Clear Calc 55.16, Est GFR (MDRD) Af Amer 71, Est GFR (MDRD) Non-Af 59 L, BUN/Creatinine Ratio 17.3, G lucose 107 H, Calcium 8.6, Troponin I High Sens 187 H*, Triglycerides 93, Cholesterol 81, LDL Cholesterol 34, VLDL Cholesterol 19, HDL Cholesterol 28 L, F ree T4 1.47 H Micro: Microbiology 07/20/24 18:38 Mucosa - Nose SARS-CoV-2, Influenza & RSV (PCR) - Final Radiography Diagnostic Testing: Radiology Impression Chest X-Ray 07/20/24 19:00 IMPRESSION: Degenerative changes, as described above. No demonstrated acute cardiopulmonary process. Electronically Signed: Josef Diallo MD at 19:29 EDT , Brain CT 07/20/24 19:21 IMPRESSION: Chronic involutional changes of the brain. Electronically Signed: Josef Diallo MD at 20:01 EDT , Chest CTA 07/20/24 20:15 IMPRESSION: CTA chest examination, without a demonstrated pulmonary embolism or arterial dissection. Lower lung atelectasis. Right lower lung nodule is similar to prior exams. Electronically Signed: Josef Diallo MD at 21:18 EDT , Echocardiogram 07/21/24 02:56 Interpretation Summary Normal LV size. Left ventricular systolic function is normal. Stage 1 diastolic dysfunction. The left ventricular ejection fraction is 60 %. Bubble contrast study negative for right to left interatrial shunt. Ordering Physician: Aleksandr Cee Referring Physician: Peña Pulido Performed By: Geno Gonzalez RDCS, RVT Physical Exam Const alert, oriented x3, no apparent distress and average body habitus Constitutional Narrative: Elderly male, mildly fatigued appearing, otherwise sitting up comfortably in bed, conversing normally, in no acute distress. General Appearance: cooperative and comfortable HEENT normocephalic, head/scalp atraumatic and nasal mucous membranes and turbinates normal HEENT Narrative: Very hard of hearing. Eyes PERRL, EOMs intact bilaterally and conjunctivae normal Neck full ROM Chest inspection of chest normal Resp normal respiratory effort, normal air movement, no use of accessory muscles and clear to auscultation bilaterally Cardio regular rate, regular rhythm, no murmurs and peripheral pulses 2+ throughout GI normal to inspection, nondistended, normoactive bowel sounds, soft to palpation, non-tender and non-distended Back/Spine normal ROM Extremity normal to inspection, full ROM and no pedal edema Skin no rashes or lesions noted Neuro no focal motor deficits and no sensory deficits noted Speech: speech normal Psych mental status grossly normal Assessment & Plan Assessment/Plan (1) Syncope and collapse: (2) Heat stroke: QUALIFIERS: Encounter type: initial encounter Qualified Code(s): T67.01XA - Heatstroke and sunstroke, initial encounter (3) Elevated troponin: (4) Acute hypotension: PLAN: Plan Patient is a 73-year-old male who presented to [facility] ED on 07/21/2024 after a syncopal episode at home. 1. Syncopal episode ? Presented after syncopal episode at home, was found down by . Notably had syncopal episode 1 to 2 months prior to this admission as well. Syncopal episode seems most likely due to acute heat stroke with dehydration and mild hypotension given negative cardiac workup as noted below. However, cardiac arrhythmia cannot be ruled out. Patient improved back to near baseline on afternoon of admission. Cardiac telemetry with no concerning findings to this point. However, given this is his second episode of syncope we will plan to discharge home with 30-day event monitor. If patient remains stable, will likely be okay for discharge home tomorrow. 2. Suspected acute heat stroke ? Febrile to 102F on admission. Mild leukocytosis noted but patient otherwise noninfectious appearing. COVID/flu/RSV negative. Chest x-ray and CTA chest unremarkable. UA unremarkable. Fever improved with Tylenol, has been afebrile since then. No need for antibiotics at this time. 3. Elevated troponins with mild hypotension ? Troponin trend 110 > 196 > 187 on admit. Stress test 07/21 unremarkable. Echo 07/21 with normal EF, stage I diastolic dysfunction, no other abnormalities. CTA chest on admit negative for PE and otherwise unremarkable. Hypotensive on admission to 80s systolic, improving with IV fluid resuscitation. Suspect that elevated troponins are due to demand ischemia in setting of acute heat stroke as noted above. Home lisinopril?hydrochlorothiazide also likely contributing to hypotension. Encourage p.o. intake. No need for further cardiac workup. 4. Mild JORGE with mild rhabdomyolysis ? Creatinine 1.43 on admit, baseline creatinine around 1.0. CK 311 on admit. Presumed prerenal etiology of JORGE due to above issues. Improving with IV fluid resuscitation. No need for further IV fluids at this time, encourage p.o. intake. 5. Elevated lactic acid, resolved ? Lactic acid 2.4 on admit, improved to 0.8 with IV fluid resuscitation. No anion gap noted. Chronic medical conditions: ? Hypertension: Holding home lisinopril?hydrochlorothiazide for now. ? Hyperlipidemia: Continue home statin. ? BPH with obstructive symptoms: Continue home tamsulosin. ? Hypothyroidism: Continue home Synthroid. ? Type 2 diabetes mellitus: On home metformin 500 mg twice daily. Blood sugar stable since admission, no need for sliding scale insulin at this time. DVT prophylaxis: Lovenox CODE STATUS: Full code, unverified Expected disposition: Home, 1 to 2 days Total clinical time spent by myself addressing the patient's medical issues, reviewing all the data, and collaborating with patient's care team: 35 minutes. Charges/Coding Visit Charges Inpatient E&M: 00401 Subs Hosp L2
[2024-07-21] MEDS: Lactated Ringers 1,000 ML 200 ML IV (13:53)
--- NOTE | 2024-07-21 15:01 | CASEMGMT ---
HELENE STEEN Assessment Face to Face with patient for initial transition planning/care coordination assessment. HELENE STEEN introduced self and role at [facility], pt voices understanding. Pt is A&Ox4 and is resting comfortably in bed and is calm. Care providers, pharmacy, and demographics verified. Admitting dx: Acute Heat Stroke, Adverse drug reaction LACE Strata: 1 PCP: Peña Pulido Specialists: Denies Preferred Pharmacy: [facility] Insurance: MCR A/B, [employer]ET[employer] Supp Prescription Benefit: Yes LNOK: Vania Esquivel (W) Living Arrangements: Pt lives with his in a two story home with extra wide doors with a FFSU and 3 steps to enter with a handrail ADLs/IADLs: Ind at BL Transportation: Self, DME: Grab bars. FWW. Walk in shower with chair and grab bars. BP Monitor. Pt states that he takes Metformin at home but does not check his BS. Pt was educated that we can supply a prescription for this, however the pt denied the need. HHC/SNF: Denies history Pt?s goal: Return to PLOF Plan: TBD. 6-click is 12. PT and OT are pending. CM and SW to follow pt progression in the hospital as well as therapy to decipher the best DC plan moving forward. Grover Wilkerson RN, CM
[2024-07-21] MEDS: Atorvastatin Calcium 20 MG Tablet PO (20:55)
[2024-07-22 04:50] VITALS: BP 110/58; PULSE 62; RESP 16; TEMP 36.7; O2SAT 97
[2024-07-22] MEDS: Levothyroxine 150 MCG Tablet PO (05:18)
[2024-07-22] MEDS: 0.9% Saline Lock 10 ML Syringe IV (05:18)
[2024-07-22 08:25] LABS: Hematocrit 36.7 % (40-54); Hemoglobin 12.1 g/dL (13.0-16.5); Mean Corpuscular Hgb 32.1 pg (27.0-32.0); Mean Corpuscular Volume 97.3 fL (80-94); Mean Platelet Vol. 9.7 fl (6.2-12.0); Platelet Count 159 K/mm3 (150-450); RBC Distribution Width CV 12.9 % (11.6-14.6); RBC Distribution Width SD 46.5 fl (35.1-43.9); Red Blood Count 3.77 M/mm3 (4.6-6.2); White Blood Count 11.7 K/mm3 (4.4-11.0)
[2024-07-22 08:53] LABS: Anion Gap 6 (5-15); BUN 23 mg/dL (7-18); Calcium,Total 8.7 mg/dL (8.5-10.1); Chloride 116 mmol/L (98-107); Creatinine, Serum 0.96 mg/dL (0.70-1.30); EST Glomerular Filtration Rate 81 mL/min (>60); Est Glom Filt Rate - Afr Amer 98 mL/min (>60); Estimated Creatinine Clearance 72.97 ml/min; Glucose 92 mg/dL (74-106); Potassium 3.7 mmol/L (3.5-5.1); Sodium Level 144 mmol/L (136-145)
[2024-07-22 09:21] VITALS: BP 106/61; PULSE 62; RESP 16; TEMP 36.8; O2SAT 94
[2024-07-22] MEDS: Aspirin E.C. 81 MG Tablet PO (09:24)
[2024-07-22] MEDS: Tamsulosin HCl 0.4 MG Capsule PO (09:24)
--- NOTE | 2024-07-22 10:25 | NURSING ---
PT AMB TO DOOR ON OWN. PT REFUSING STAFF TO PLACE CHAIR ALARM. EXPLAINED TO PT THAT HE CAME TO HOSP D/T FALL AND WE NEED TO TRY TO ENSURE SAFETY WHEN PT AMBULATES. EXPLAINED THAT CHAIR ALARM NEEDS PLACED PT DID NOT USE CALL LIGHT TO CALL FOR ASSISTANCE WHEN UP. PT CONTINUES TO REFUSE TO STAND TO ALLOW FOR PLACEMENT OF CHAIR ALARM. WILL CONTINUE TO ENCOURAGE USE OF CALL LIGHT AND ATTEMPT TO PLACE CHAIR ALARM WHEN ABLE. PT REFUSING TO PLACE LUNCH ORDER AND STATES GET OUT. YOU'RE A PAIN IN THE ASS.
--- NOTE | 2024-07-22 10:41 | NURSING ---
IS PRESENT IN ROOM. EXPLAINED TO THAT PT IS ANXIOUS TO LEAVE BUT WE ARE STILL WAITING ON DR TO ROUND. ENCOURAGED TO USE CALL LIGHT IF PT NEEDS TO AMB IN ROOM. VOICES UNDERSTANDING. WILL CONT TO MONITOR
--- NOTE | 2024-07-22 11:31 | PCM.DC.SUM ---
Providers Date of Admission: 07/21/24 Primary Care Physician: Dr. Peña Pulido MD Reason For Visit: ACUTE HEAT STROKE, ADVERSE DRUG REACTION & Diagnosis Discharge Diagnosis (1) Syncope and collapse: Status: Acute Code(s): R55 - Syncope and collapse (2) Heat stroke: Status: Acute Code(s): T67.01XA - Heatstroke and sunstroke, initial encounter Qualifiers: Encounter type: initial encounter Qualified Code(s): T67.01XA - Heatstroke and sunstroke, initial encounter (3) Elevated troponin: Status: Acute Code(s): R79.89 - Other specified abnormal findings of blood chemistry (4) Acute hypotension: Status: Acute Code(s): I95.9 - Hypotension, unspecified Medications at Discharge Home Medications aspirin 81 mg tablet,delayed release (Adult Low Dose Aspirin) 81 mg PO DAILY 07/20/24 atorvastatin 20 mg tablet 20 mg PO DAILY 07/20/24 levothyroxine 150 mcg tablet 150 mcg PO DAILY 07/20/24 lisinopril 10 mg-hydrochlorothiazide 12.5 mg tablet 1 tab PO DAILY 07/20/24 metformin 500 mg tablet 500 mg PO BID 07/20/24 tamsulosin 0.4 mg capsule 0.4 mg PO DAILY 07/20/24 Hospital Course Operations None Procedures EKG, Nuclear stress test, Transthoracic echo and - (Carotid duplex ultrasound, CTA chest, CT brain, chest x-ray) Summary of Care Provided Minutes Spent on Discharge: 35 Hospital Course: Patient is a 73-year-old male who presented to [facility] ED on 07/21/2024 after a syncopal episode at home. Hospital course as noted below. Patient discharged home in stable condition on 07/22. 1. Syncopal episode ? Presented after syncopal episode at home, was found down by . Notably had syncopal episode 1 to 2 months prior to this admission as well. Syncopal episode seems most likely due to acute heat stroke with dehydration and mild hypotension given negative cardiac workup as noted below. However, cardiac arrhythmia cannot be ruled out. Patient improved back to near baseline on afternoon of admission. Cardiac telemetry with no concerning findings during hospitalization. However, given this is his second episode of syncope, discharged patient home with 14-day event monitor. Hypotension improved with IV fluids but continued to have low normal blood pressure during hospitalization, home lisinopril?hydrochlorothiazide held on discharge. 2. Suspected acute heat stroke ? Febrile to 102F on admission. Mild leukocytosis noted but patient otherwise noninfectious appearing. COVID/flu/RSV negative. Chest x-ray and CTA chest unremarkable. UA unremarkable. Fever improved with Tylenol, remained afebrile for remainder of hospitalization. Did not require antibiotics. 3. Elevated troponins with mild hypotension ? Troponin trend 110 > 196 > 187 on admit. Stress test 07/21 unremarkable. Echo 07/21 with normal EF, stage I diastolic dysfunction, no other abnormalities. CTA chest on admit negative for PE and otherwise unremarkable. Hypotensive on admission to 80s systolic, improved with IV fluid resuscitation. Suspected that elevated troponins were due to demand ischemia in setting of acute heat stroke as noted above. Home lisinopril?hydrochlorothiazide also likely contributed to hypotension. Home lisinopril?hydrochlorothiazide held on discharge as noted above. No further cardiac workup needed at this time. 4. Mild JORGE with mild rhabdomyolysis, resolved ? Creatinine 1.43 on admit, baseline creatinine around 1.0. CK 311 on admit. Presumed prerenal etiology of JORGE due to above issues. Resolved with IV fluid resuscitation. 5. Elevated lactic acid, resolved ? Lactic acid 2.4 on admit, improved to 0.8 with IV fluid resuscitation. No anion gap noted. Chronic medical conditions: ? Hypertension: Home lisinopril?hydrochlorothiazide held on discharge, can discuss if/when to restart medication with PCP at follow-up. ? Hyperlipidemia: Continue home statin. ? BPH with obstructive symptoms: Continue home tamsulosin. ? Hypothyroidism: Continue home Synthroid. ? Type 2 diabetes mellitus: On home metformin 500 mg twice daily. Blood sugar stable since admission, no need for sliding scale insulin while inpatient. Continue metformin on discharge. *Patient notably was admitted under inpatient status but had medical improvement more quickly than anticipated and was discharged on hospital day 2. Total clinical time spent by myself addressing the patient's medical issues, reviewing all the data, and collaborating with patient's care team: 35 minutes. Physical Exam Const alert, oriented x3, no apparent distress and average body habitus Constitutional Narrative: Elderly male, energy improved from admission, sitting up comfortably in bed, conversing normally, in no acute distress. General Appearance: cooperative and comfortable HEENT normocephalic, head/scalp atraumatic and nasal mucous membranes and turbinates normal HEENT Narrative: Very hard of hearing. Eyes PERRL, EOMs intact bilaterally and conjunctivae normal Neck full ROM Chest inspection of chest normal Resp normal respiratory effort, normal air movement, no use of accessory muscles and clear to auscultation bilaterally Cardio regular rate, regular rhythm, no murmurs and peripheral pulses 2+ throughout GI normal to inspection, nondistended, normoactive bowel sounds, soft to palpation, non-tender and non-distended Back/Spine normal ROM Extremity normal to inspection, full ROM and no pedal edema Skin no rashes or lesions noted Neuro no focal motor deficits and no sensory deficits noted Speech: speech normal Psych mental status grossly normal Weight / BMI Weight Weight: 85.1 kg Body Mass Index (BMI) 25.4 ABG / Lab / Microbiology Data 07/22/24 07:53 07/22/24 07:53 Laboratory: Laboratory Results - last 24 hr 07/22/24 07:53: WBC 11.7 H, RBC 3.77 L, Hgb 12.1 L, Hct 36.7 L, MCV 97.3 H, MCH 32.1 H, MCHC 33.0, RDW Std Deviation 46.5 H, RDW Coeff of Adeel 12.9, Plt Count 159, MPV 9.7, Sodium 144, Potassium 3.7, Chloride 116 H, Carbon Dioxide 22.0, Anion Gap 6, BUN 23 H, Creatinine 0.96, Estim Creat Clear Calc 72.97, Est GFR (MDRD) Af Amer 98, Est GFR (MDRD) Non-Af 81, BUN/Creatinine Ratio 24.0 H, Glucose 92, Calcium 8.7 Microbiology: Microbiology 07/21/24 18:38 Urine, Catheterized Urine Culture - Preliminary Culture exhibits no growth. 07/20/24 18:38 Mucosa - Nose SARS-CoV-2, Influenza & RSV (PCR) - Final Radiography Diagnostic Testing: Radiology Impression Carotid Duplex 07/21/24 02:56 Interpretation Summary Mild (<50%) stenosis right extracranial internal carotid. Mild (<50%) stenosis left extracranial internal carotid. Patent and antegrade vertebrals bilaterally. Ordering Physician: Aleksandr Cee Referring Physician: Peña Pulido Performed By: Cole Bolanos, RVT Echocardiogram 07/21/24 02:56 Interpretation Summary Normal LV size. Left ventricular systolic function is normal. Stage 1 diastolic dysfunction. The left ventricular ejection fraction is 60 %. Bubble contrast study negative for right to left interatrial shunt. Ordering Physician: Aleksandr Cee Referring Physician: Peña Pulido Performed By: Geno Gonzalez RDCS, RVT Meaningful Use Info Meaningful Use Meaningful Use Diagnoses (Choose all that apply): None applicable Ischemic Stroke Statin Dosing Therapy Reference: STATIN DOSE THERAPY REFERENCE: * Patients > 75 years receive moderate or high dose statin therapy. * Patients 75 years or YOUNGER should receive HIGH intensity statin dose unless contraindicated. You will be required to document reason for non-treatment if statin daily dose does not meet guidelines. HIGH DOSE STATIN THERAPY DAILY Atorvastatin > than or = to 40 mg Rosuvastatin > than or = to 20 mg Amlodipine + Atorvastatin > than or = to 2.5/40 mg Ezetimibe + Simvastatin 10/80 mg Simvastatin 80mg Discharge Plan Admission Admit Date/Time: 07/21/24 02:50 Primary Reason for Your Visit: episode of passing out Attending Provider: Christopher Sharma Primary Care Provider: Peña Pulido Consulting Providers: Aleksandr Cee Instructions Additional Instructions / Restrictions: Please hold off on taking your lisinopril?hydrochlorothiazide medication for blood pressure until you follow-up with your primary care doctor in the office. Continue all other home medications as normal. The heart monitor will be sent to you in the mail; please wear this for 2 weeks as instructed. Discharge Orders/Prescriptions Prescriptions: Continued metformin 500 mg tablet 500 mg PO BID atorvastatin 20 mg tablet 20 mg PO DAILY levothyroxine 150 mcg tablet 150 mcg PO DAILY tamsulosin 0.4 mg capsule 0.4 mg PO DAILY aspirin [Adult Low Dose Aspirin] 81 mg tablet,delayed release (DR/EC) 81 mg PO DAILY Held lisinopril-hydrochlorothiazide 10-12.5 mg tablet 1 tab PO DAILY Hold Instructions: Resume on 08/08/24. Please hold on taking this medication until follow up with your primary care doctor. Other Ambulatory Orders: 14 Day Event Recorder [employer] (Urgent) Timeframe: 2 Weeks Facility: [facility] - Location: Cardiovascular Services Ordered By: Dr. Christopher Sharma Referrals / Follow Up: Peña Pulido MD [Primary Care Provider] - Disposition Disposition (needs filled in before D/C Order can be placed): Home, Self Care Charges/Coding Visit Charges Inpatient E&M: 00312 Disch Hosp >30min
--- NOTE | 2024-07-22 11:52 | CASEMGMT ---
Addendum entered by Eufemia Jaramillo 07/22/24 12:08: Referral sent to [employer] via [facility] at this time. Addendum entered by Eufemia Jaramillo 07/22/24 12:04: Provided pt with FWW and pt signed consignment form. Pt provided with copy. Pt given a HHC list in case he should change his mind once home. He and are aware to notify PCP if this is the case. Pt and deny further needs at this time. Original Note: RN CM into pt room, pt sitting up in chair, pt present. Discussed dc planning. Pt states he has not had therapy yet, states someone else got him to the chair. Pt states he felt that he did pretty well. Discussed having HHC for him at home. Pt was adamant he did not want it. Pt states their home is set up well as they have recently remodeled. Pt wants to dc home. He does not want to wait for therapy. Pt states he has a FWW at home but it is his 's and he is not sure it is the right size for him. He is agreeable to getting a FWW. Provided pt with a local in network list of DME companies, pt chose [employer].
--- NOTE | 2024-07-22 12:20 | PHA.DC.MR.R ---
Pharmacy [place] Med Reconciliation Pharmacy Service has performed discharge medication reconciliation for this patient. The patient's discharge medication list was reviewed for discrepancies and discrepancies were resolved. Medications at Discharge Home Medications aspirin 81 mg tablet,delayed release (Adult Low Dose Aspirin) 81 mg PO DAILY 07/20/24 atorvastatin 20 mg tablet 20 mg PO DAILY 07/20/24 levothyroxine 150 mcg tablet 150 mcg PO DAILY 07/20/24 lisinopril 10 mg-hydrochlorothiazide 12.5 mg tablet 1 tab PO DAILY 07/20/24 metformin 500 mg tablet 500 mg PO BID 07/20/24 tamsulosin 0.4 mg capsule 0.4 mg PO DAILY 07/20/24
== END 2024-07-22 12:28 | disposition home or self-care (01) | DRG 923 ==
LOC: ED 23:59 → PCU 07-21 03:12
PROVIDERS: Admitting Provider Internal Medicine; Emergency Provider Emergency Medicine; PCP Family Medicine; Visit Provider Hospitalist
DX: T67.01XA Heatstroke and sunstroke, initial encounter (principal); E87.20 Acidosis, unspecified; N17.9 Acute kidney failure, unspecified; I24.89 Other forms of acute ischemic heart disease; I95.9 Hypotension, unspecified; E11.9 Type 2 diabetes mellitus without complications; E03.9 Hypothyroidism, unspecified; I10 Essential (primary) hypertension; E78.5 Hyperlipidemia, unspecified; E86.0 Dehydration; T79.6XXA Traumatic ischemia of muscle, initial encounter; F17.210 Nicotine dependence, cigarettes, uncomplicated; T38.3X5A Adverse effect of insulin and oral hypoglycemic [antidiabetic] drugs, initial encounter; R55 Syncope and collapse; R79.89 Other specified abnormal findings of blood chemistry; H91.90 Unspecified hearing loss, unspecified ear; N40.0 Benign prostatic hyperplasia without lower urinary tract symptoms; E66.3 Overweight; Z68.25 Body mass index [BMI] 25.0-25.9, adult; Z23 Encounter for immunization; Z11.52 Encounter for screening for COVID-19; Z79.82 Long term (current) use of aspirin; Z79.84 Long term (current) use of oral hypoglycemic drugs; Z79.890 Hormone replacement therapy; Z79.899 Other long term (current) drug therapy
CPT/HCPCS: 36415; 51702; 70450; 71045; 71275; 78452; 80048; 80061; 80076; 80307; 81001; 82077; 82533; 82550; 83605; 83690; 83880; 84439; 84443; 84484; 85025; 85027; 85610; 85730; 87040; 87086; 87631; 90662; 93005; 93017; 93306; 93880; 97802; 99285; A9500; J7030; J7120; Q9967; A4216; J2785

== ENCOUNTER → 2024-09-01 | Outpatient (CLI) | payer MEDICARE, OTHER, SELFPAY ==
[2024-09-01 15:28] LABS: Absolute Lymphocyte Count 1.41 X10^3/uL (0.83-4.51); Absolute Neutrophil Count 6.7 X10^3/uL (2.0-7.7); Basophil% 1.1 % (0-1); Eosinophil# 0.12 X10^3/uL; Eosinophils% 1.3 % (0-5); Hematocrit 40.9 % (40-54); Hemoglobin 13.2 g/dL (13.0-16.5); Lymphocyte # 1.41 X10^3/ul (0.83-4.51); Lymphocyte % 15.6 % (19-41); Mean Corp Hgb Conc 32.3 g/dL (32-36); Mean Platelet Vol. 9.7 fl (6.2-12.0); Monocyte# 0.74 X10^3/uL; Monocyte% 8.2 % (0-10); NRBC Flagged by Analyzer 0 % (0-5); Neutrophil # 6.65 X10^3/uL (2.7-7.7); Neutrophil % 73.4 % (47-70); Platelet Count 221 K/mm3 (150-450); RBC Distribution Width CV 12.4 % (11.6-14.6); RBC Distribution Width SD 45.4 fl (35.1-43.9); Red Blood Count 4.13 M/mm3 (4.6-6.2); White Blood Count 9.1 K/mm3 (4.4-11.0)
[2024-09-01 15:45] LABS: Erythrocyte Sedimentation Rate 6 mm/hr (0-20)
[2024-09-01 15:48] LABS: Vitamin B12 541 pg/mL (211-911)
[2024-09-01 15:52] LABS: Hemoglobin A1c 5.3 % (3.8-5.6)
[2024-09-01 16:32] LABS: ALB/GLOB Ratio 1.1 RATIO (0.9-2.4); AST(SGOT) 19 U/L (15-37); Alanine Aminotransfer ALT/SGPT 22 U/L (16-61); Albumin, Serum 3.6 g/dL (3.2-5.0); Alkaline Phosphatase 58 U/L (45-117); Anion Gap 3 (5-15); BUN 19 mg/dL (7-18); BUN/Creat Ratio 15.2 RATIO (10-20); Calcium,Total 9.6 mg/dL (8.5-10.1); Chloride 108 mmol/L (98-107); Creatinine, Serum 1.25 mg/dL (0.70-1.30); EST Glomerular Filtration Rate 60 mL/min (>60); Est Glom Filt Rate - Afr Amer 72 mL/min (>60); Free T3 2.8 pg/mL (2.18-3.98); Globulin 3.3 g/dL (2.2-4.2); Glucose 113 mg/dL (74-106); Potassium 4.3 mmol/L (3.5-5.1); Protein, Total 6.9 g/dL (6.4-8.2); Sodium Level 138 mmol/L (136-145); T4 Free Direct 1.48 ng/dL (0.76-1.46); Thyroid Stim Hormone (TSH) 0.164 uIU/mL (0.358-3.740)
[2024-09-01 17:16] LABS: Microalbumin,Random Urine 8.8 mg/L (NO RANGE EST.); Microalbumin:Creatinine Ratio 7.3 mg/g CRE (<30 mg/g CRE)
[2024-09-05 16:09] LABS: PROEL- A/G Ratio 1.2 (0.7-1.7); PROEL- Albumin 3.6 g/dL (2.9-4.4); PROEL- Alpha-1 Globulin 0.3 g/dL (0.0-0.4); PROEL- Alpha-2 Globulin 0.8 g/dL (0.4-1.0); PROEL- TOTAL PROTEIN 6.6 g/dL (6.0-8.5); PROEL-M-Spike Not Observed g/dL (Not Observed)
== END | disposition home or self-care (01) ==
LOC: MTLAB 12:40
PROVIDERS: PCP Family Medicine; Referring Provider Family Medicine; Visit Provider Family Medicine
DX: R60.0 Localized edema (principal); R73.03 Prediabetes; E05.90 Thyrotoxicosis, unspecified without thyrotoxic crisis or storm; G31.84 Mild cognitive impairment of uncertain or unknown etiology; Z51.81 Encounter for therapeutic drug level monitoring
CPT/HCPCS: 36415; 80053; 82043; 82570; 82607; 82746; 83036; 84165; 84439; 84443; 84481; 85025; 85652

== ENCOUNTER 2024-09-05 13:31 | Outpatient (CLI) | payer MEDICARE, OTHER, SELFPAY ==
--- OUTSIDE RECORDS SUMMARY | 2024-09-05 16:57 | XMS RPT_ITS | CCD ---
Author Organization [facility] Care Team Providers Care Precision Dancer Name Role Phone Ashok SANCHEZ, Betzy Boland Primary Care Provider GLADYS HAWTHORNE Attending Unavailable BETZY PULIDO Primary Care Unavailable GEORGIE JARRELL Referring Unavailable ALINA FERNANDES Attending Unavailable BETZY PULIDO Primary Care Unavailable BETZY PULIDO Primary Care Unavailable GEORGIE JARRELL Referring Unavailable Allergies Allergy Classification Reported Allergen(s) Allergy Type Date of Onset Reaction(s) Facility (3 sources) Penicillins; Translations: [PENICILLINS] Drug Allergy 06-11-2007 [facility] Work Phone: (1 source) Penicillins Drug Allergy 06-11-2007 [facility] Work Phone: Medications Completed/Discontinued Medications Medication Drug Class(es) Dates Sig (Normalized) Sig (Original) ascorbic acid 500 mg oral tablet (3 sources) Vitamin C Start: 7 take 1 tablet by mouth once daily ascorbic acid (VITAMIN C) 500 mg ORAL Tab Take one(1) tablet daily. 0 0 06/11/2007 Active Comment on above: Take one(1) tablet d aily. atorvastatin 20 mg oral tablet (3 sources) HMG-CoA Reductase Inhibitor take 1 tablet by mouth once daily atorvastatin (LIPITOR) 20 mg tablet Take 20 mg by mouth once daily. 0 Active Comment on above: Take 20 mg by mouth once daily. B Complex Vitamins (SUPER B COMPLEX) ORAL capsule (3 sources) Start: 1 take 1 capsule by mouth once daily B Complex Vitamins (SUPER B COMPLEX) ORAL capsule Take 1 capsule by mouth once daily. 0 03/05/2011 Active Comment on above: Take 1 capsule by [facility] once daily. Calcium Carbonate / magnesium carbonate (3 sources) Start: 1 take 1 tablet by mouth once daily Calcium and Magnesium Carbonates ORAL per tablet Take 1 tablet by mouth once daily. 0 03/05/2011 Active Comment on above: Take 1 tablet by molly th once daily. glucosamine 1000 mg oral tablet (3 sources) Start: 1 take 2 tablets by mouth once daily Glucosamine 1,000 mg ORAL Tab Take 2 tablets by mouth once daily. 0 03/05/2011 Active Comment on above: Take 2 tablets by mo [facility] once daily. hydroCHLOROthiazide 12.5 mg / lisinopril 10 mg oral tablet (3 sources) Thiazide Diuretic, Angiotensin Converting Enzyme Inhibitor Start: 1 take 1 tablet by mouth once daily lisinopril-hydroch lorothiazide 10-12.5 mg ORAL per tablet Indications: Hypertension Take 1 tablet by mouth once daily. 90 tablet 3 06/03/2011 Active Comment on above: Take 1 tablet by molly once daily. ibuprofen 200 mg oral tablet (3 sources) Nonsteroidal Anti-inflammatory Drug Start: 1 take 2 tablets by mouth every twelve hours as needed ibuprofen (ADVIL) 200 mg ORAL tablet Take 400 mg by mouth twice daily as needed. 0 03/13/2011 Active Comment on above: Take 400 mg by mouth twice daily as needed. levothyroxine sodium 0.125 mg oral tablet (3 sources) l-Thyroxine Start: 1 take 1 tablet by mouth once daily levothyroxine (SYNTHROID) 125 mcg ORAL tablet Indications: Hypothyroidism Take 1 tablet by mouth once daily. 90 tablet 3 06/03/2011 Active Comment on above: Take 1 tablet by molly once daily. metFORMIN hydrochloride 500 mg oral tablet (3 sources) Biguanide Start: 1 take 1 tablet by mouth twice daily, then take 1 tablet by mouth once daily, then take 1 tablet by mouth twice daily at mealtime metFORMIN 500 mg ORAL tablet Indications: Diabetes mellitus (HCC) Take 1 tablet by mouth twice daily. Start with 1 tab once daily for first week then if tolerates 1 tab twice daily with meals. 180 tablet 3 06/03/2011 Active Comment on above: Take 1 tablet by molly th twice daily. Start with 1 tab once daily for first week then if tolerates 1 tab twice daily with meals. Multivitamin (DAILY MULTIVITAMIN) ORAL Tab (3 sources) Start: 7 take 1 tablet by mouth once daily Multivitamin (DAILY MULTIVITAMIN) ORAL Tab Take one(1) tablet daily. 0 0 06/11/2007 Active Comment on above: Take one(1) tablet d aily. mupirocin 20 mg/ml topical cream (1 source) RNA Synthetase Inhibitor Antibacterial Start: 0 End: 2 mupirocin calcium(BACTROBAN 2 % TOPICAL CREAM) Apply to affected area(s) three(3) times daily. 60 0 05/23/2010 02/06/2022 Discontinued (Course of therapy completed) Comment on above: Apply to affected ar ea(s) three(3) times daily. [place]-3 Fatty Acids (FISH OIL) 500 mg ORAL Cap (3 sources) Start: 1 [place]-3 Fatty Acids (FISH OIL) 500 mg ORAL Cap Take by mouth once daily. 0 05/07/2011 Active Comment on above: Take by mouth once d aily. simvastatin 20 mg oral tablet (1 source) HMG-CoA Reductase Inhibitor Start: 1 End: 2 take 1 tablet by mouth once daily at bedtime simvastatin (ZOCOR) 20 mg ORAL tablet Indications: Mixed dyslipidemia Take 1 tablet by mouth daily at bedtime. 90 tablet 3 06/20/2011 02/06/2022 Discontinued (Course of therapy completed) Comment on above: Take 1 tablet by molly th daily at bedtime. gilbert's wort extract 300 mg oral tablet (3 sources) Start: 1 take 1 tablet by mouth once daily Gilbert's Wort 300 mg ORAL Tab Take by mouth once daily. 0 03/05/2011 Active Comment on above: Take by mouth once d aily. Zinc (3 sources) Start: 1 Zinc (CHELATED ZINC) 50 mg ORAL Tab Take by mouth. 0 03/05/2011 Active Comment on above: Take by mouth. Problems Active Problems Problem Classification Problem Date Documented Da te Episodic/Chronic Coronary atherosclerosis and other heart disease (1 source) Calcification of coronary artery; Translations: [Atherosclerotic heart disease of [place] coronary artery without angina pectoris] Chronic Diabetes [...] Name Value Interpretation Reference Range Facil ity CNOVon 08-29-2022 CNOV Office Visit (PULMWS ) ANEL ESQUIVEL ([id number]) 1950 M Date Time Provider Department 08/29/22 12:45 PM GLADYS HAWTHORNE PULMWS During your visit today, we recorded the following information about you: Pulse Blood pressure Weight 89/minute 136/72 83.9 kg Gladys Hawthorne MD 08/29/2022 8:08 PM Signed . [facility] Patient name: Anel Esquivel PCP: Betzy Pulido MD, MD CC: Lung nodules HPI: Anel Esquivel 71 year old male current smoker for [...] DATE OF EXAM: Feb 06 2022 2:44PM [facility] 0541 - CT CHEST WO IVCON [...] suggestive of a cyst. There is cholelithiasis. Commercial Loan Coordinator (topogram) images: No additional findings. IMPRESSION: Stable [...] 150 mcg by mouth once daily. ) lisinopril-hydrochlor othiazide 10-12.5 mg ORAL per tablet Take 1 tablet by mouth once daily. metFORMIN 500 mg ORAL tablet Take 1 tablet by mouth twice daily. Start with 1 tab once daily for first week then if tolerates 1 tab twice daily with meals. [place]-3 Fatty Acids (FISH OIL) 500 mg ORAL Cap Take by mouth once daily. blood sugar diagnostic (ONE TOUCH ULTRA TEST) Misc test strip Use as instructed blood sugar diagnostic (ACCU-CHEK WILFREDO) Misc test strip Test twice daily as needed. Dx 250.02 ibuprofen (ADVIL) 200 mg ORAL tablet Take 400 mg by mouth twice daily as needed. Gilbert's Wort 300 mg ORAL Tab Take by [...] Breast Cancer Mother brain cancer Heart Father CVA/arthritis/obesity /ETOH/ during procedure for pacemaker implant other (lymphom (more content not included)... Normal [facility] CNOVon 02-06-2022 CNOV Office Visit (PULMWS ) ANEL ESQUIVEL ([id number]) 1950 M Date Time Provider Department 02/06/22 2:30 PM ALINA FERNANDES During your visit today, we recorded the following information about you: Pulse Blood pressure Weight Height 76/minute 124/76 84.8 kg 1.816 m Alina Fernandes MD 02/11/2022 10:25 AM Signed [facility], 02/06/2022: Name: Anel Esquivel : 1950 INTERVAL HISTORY: Since the 08/09/2021 [...] MEDICAL DECISION MAKIN. Multiple subcentimeter pulmonary nodules, non-calcified.?Initia lly appreciated on screening CT chest at [facility] 12/12/2020. PET scan negative January,. CT [...] acceptance of my answers. Alina Fernandes MD, [facility] Specialty and [place] [address] P: [phone] F: [phone] [email or web address] Alian Fernandes MD 02/06/2022 3:33 PM Signed MEDICAL DECISION MAKING: Multiple subcentimeter pulmonary nodules, non-calcified.?Initia candi appreciated on screening CT chest at [facility] 12/12/2020. PET scan negative January,. CT chest 07/22/[address] chest today also appears stable. - Surveillance CT chest in 12 months, 01/2023. Sooner if needed. Alina Fernandes MD, [facility] [place] [address] P: [phone] F: [phone] [email or web address] Referring Provider: GEORGIE JARRELL [[id number]] Allergies As of Date: 02/06/2022 Noted Allergy Reaction PENICILLINS 06/11/2007 4 - Hives Date Reviewed: 02/06/2022 Reviewed by: Bing Lo RN - Fully Assessed Primary Visit Diagnosis:Lung nodules [R91.8] Other Visit Diagnoses:Chronic cough [R05.3] Tobacco use disorder, continuous [F17.209] Order(s):CT CHEST WO IVCON [[id number]] Order #: [id number] FUTURE Prescriptions as of 02/11/2022 - atorvastatin (LIPITOR) 20 mg tablet Take 20 mg by mouth once daily. - levothyroxine (SYNTHROID) 125 mcg ORAL tablet Take 1 tablet by mouth once daily. - lisinopril-hydrochlor othiazide 10-12.5 mg ORAL per tablet Take 1 tablet by mouth once daily. - metFORMIN 500 mg ORAL tablet Take 1 tablet by mouth twice daily. Start with 1 tab once daily for first week then if tolerates 1 tab twice daily with meals. - [place]-3 Fatty Acids (FISH OIL) 500 mg ORAL Cap Take by mouth once daily. - blood sugar diagnostic (ONE TOUCH ULTRA TEST) (more content not included)... Normal [facility] CT CHEST WO IVCONon 02-07-20 CT CHEST WO IVCON * * *Final Report* * * DATE OF EXAM: Feb 06 2022 2:44PM [facility] 0541 - CT CHEST WO IVCON / PROCEDURE REASON: Lung nodules * * * * Physician Interpretation * * * * EXAMINATION: CHEST CT WITHOUT CONTRAST CLINICAL HISTORY: Lung nodules Technique: Spiral CT acquisition of the chest from the thoracic inlet to the upper abdomen without contrast. MQ: [id number] CT Radiation dose: Integrated Dose-length product (DLP) for this visit = 226 mGy*cm CT Dose Reduction Employed: Automated exposure control(AEC) and iterative recon Comparison: 07/22/2021 CT RESULT: Limitations: None. Lines, [...] suggestive of a cyst. There is cholelithiasis. Commercial Loan Coordinator (topogram) images: No additional findings. IMPRESSION: Stable small lung nodules. Suggest 1 year follow-up CT There is coronary artery calcification consistent with coronary artery disease. Cholelithiasis Hepatic densities suggestive of a cyst. ACTIONABLE RESULT: FOLLOW-UP Acuity: Actionable Findings: Thoracic-Lung nodules Routing code: RI_[id number] Recommendation: CT Chest WO IVCON Time Frame: In one year. COMMUNICATION: Results will be communicated with the ordering provider via Netsize staff message or phone message by [employer] within 2 business days of report finalization. Algorithms for management of incidental imaging findings can be found on the [facility] Intranet Sharepoint site at: [email or web address] [email or web address] [email or web address] [email or web address] [email or web address] Latex Dipper: BOO Transcribe Date/Time: Feb 07 2022 12:25P Dictated by : LUDMILA AU MD This examination was interpreted and the report reviewed and electronically signed by: LUDMILA AU MD on Feb 07 2022 12:33PM EST [id number] ACTIONABLE Invalid Interpretation Code [facility] Vital Signs Date Time Vital Sign Value Performing Clinician Faci lity 08-29-2022 12:42-0400 Body weight 83.92 kg Gladys Hawthorne MD Work Phone: [facility] 08-29-2022 12:42-0400 Diastolic blood pressure 72 mm[Hg] Gladys Hawthorne MD Work Phone: [facility] 08-29-2022 12:42-0400 Heart rate 89 /min Gladys Hawthorne MD Work Phone: [facility] 08-29-2022 12:42-0400 SaO2% (BldA) [Mass fraction] 97 % Gladys Hawthorne MD Work Phone: [facility] 08-29-2022 12:42-0400 Systolic blood pressure 136 mm[Hg] Gladys Hawthorne MD Work Phone: [facility] 02-06-2022 14:47-0400 Body height 181.6 cm Alina Fernandes MD Work Phone: [facility] 02-06-2022 14:47-0400 Body weight 84.82 kg Alina Fernandes MD Work Phone: [facility] 02-06-2022 14:47-0400 Diastolic blood pressure 76 mm[Hg] Alina Fernandes MD Work Phone: [facility] 02-06-2022 14:47-0400 Heart rate 76 /min Alina Fernandes MD Work Phone: [facility] 02-06-2022 14:47-0400 SaO2% (BldA) [Mass fraction] 98 % Alina Fernandes MD Work Phone: [facility] 02-06-2022 14:47-0400 Systolic blood pressure 124 mm[Hg] Alina Fernandes MD Work Phone: [facility] Encounters Encounter Date Encounter Type Care Provider Facility Start: 08-29-2022 End: 08-29-2022 ambulatory GLADYS HAWTHORNE Facility:[facility] Start: 08-29-2022 End: 08-29-2022 Patient encounter procedure Gladys Hawthorne MD Work Phone: Pulmonary Medicine Comment on above: Lung nodules (Primar y Dx); Cigarette smoker; Coronary artery calcification seen on CAT scan Start: 02-06-2022 End: 02-06-2022 ambulatory GEORGIE JARRELL Facility:[facility] Start: 02-06-2022 End: 02-06-2022 Patient encounter procedure Alina Fernandes MD Work Phone: Pulmonary Medicine Comment on above: Lung nodules (Primar y Dx); Chronic cough; Tobacco use disorder, continuous Start: 02-06-2022 End: 02-06-2022 Subsequent hospital visit by physician [facility] ([facility]) Work Phone: Cat Scan Comment on above: Lung nodules [R91.8] Procedures Date Procedure Procedure Detail Performing Clinician Start: 02-06-2022 Ct thorax w/o contra st material Georgie Jarrell PA-C Work Phone: Plan of Treatment Date Care Activity Detail Author Start: 02-06-2023 BP CONTROLLED (<130/80) BP CONTROLLE D (<130/80) [facility] Start: 02-06-2023 End: 09-28-2023 Ct thorax w/o contrast material CT CHEST WO IVCON Radiology Routine Lung nodules Expected: 02/06/2023, Expires: 09/28/2023 [facility] Work Phone: Comment on above: Expected: 02/06/2023 , Expires: 09/28/2023 Start: 02-06-2023 Influenza vaccination LUNG CANCER SC REENING [facility] Start: 01-26-2023 End: 03-08-2023 Ct thorax w/o contrast material CT CHEST WO IVCON Radiology Routine Lung nodules Expected: 01/26/2023 (Approximate), Expires: 03/08/2023 [facility] Work Phone: Comment on above: Expected: 01/26/2023 (Approximate), Expires: 03/08/2023 Start: 07-10-2022 Influenza vaccination C [facility] Start: 06-17-2022 COVID-19 VACCINE (5 - Booster) COVID-19 VACCINE (5 - Booster) [facility] Start: 11-09-2021 ADVANCE DIRECTIVE DISCUSSION ADVANCE DIRECTIVE DISCUSSION [facility] Start: 11-09-2021 DEPRESSION ASSESSMENT DEPRESSION ASS ESSMENT [facility] Start: 07-10-2021 Influenza vaccination INFLUENZA (#1) [facility] Start: 02-26-2021 Urine microalbumin profile DTAP,TDAP,TD (2 - Td or Tdap) [facility] Start: 05-10-2016 PNEUMOVAX AGE 65 AND OVER WITH 5YR LOOKBACK (#1) PNEUMOVAX AGE 65 AND OVER WITH 5YR LOOKBACK (#1) [facility] Start: 06-17-2012 Hepatitis B surface antibody level LDL CHOLESTEROL [facility] Start: 04-17-2012 Hepatitis B screening URINE ALBUMIN:CREATININE RATIO [facility] Start: 04-03-2012 Hepatitis C antibody , confirmatory test DILATED RETINAL EXAM [facility] Start: 03-18-2012 PNEUMOCOCCAL: 65+ (2 - PCV) PNEUMOCOCCAL: 65+ (2 - PCV) [facility] Start: 12-18-2011 Hemoglobin A1c/Hemoglobin.total in Blood HBA1C [facility] Start: 1998 SHINGRIX VACCINE (1 of 2) SHINGRIX VACCINE (1 of 2) [facility] Start: 1993 COLOGUARD (FIT-DNA) COLOGUARD (FIT-D NA) [facility] Start: 1993 Colonoscopy COLONOSCOPY [facility] Start: 1993 COLORECTAL CANCER SCREENING COLORECTAL CANCER SCREENING [facility] Start: [address] COLONOGRAPHY [facility] Start: 1993 FECAL OCCULT BLOOD FECAL OCCULT BLOO D [facility] Start: 1993 SIGMOIDOSCOPY SIGMOIDOSCOPY [facility] Start: 1966 ANNUAL PCP TEAM TELEPHONE MAINTAINER SHAHID DISEASE VISIT ANNUAL PCP TEAM CHRONIC DISEASE VISIT [facility] Start: 1966 BP CONTROLLED (<130/80) BP CONTROLLE D (<130/80) [facility] Start: 1966 HEPATITIS C SCREENING HEPATITIS C SC REENING [facility] Start: 1960 Adult depression screening assessment DEPRESSION SCREENING [facility] Start: 1958 3 comp foot exam completed DIABETIC FOOT EXAM [facility] Start: 1950 ABDOMINAL AORTIC ANEURYSM SCREENING ABDOMINAL AORTIC ANEURYSM SCREENING [facility] Ct thorax w/o contra st material CT CHEST WO IVCON Radiology Routine Lung nodules 02/06/2022 2:[address] [facility] Work Phone: Immunizations Immunization Date Immunization Notes Care Provider Fa scout 01-06-2021 COVID-19 vaccine (UNSPECIFIED) Ct (I-Stat) Work Phone: [facility] Work Phone: 08-07-2020 influenza, high dose seasonal, preservative-free Ct ([facility]) Work Phone: [facility] Work Phone: 03-18-2011 pneumococcal polysaccharide vaccine, [address] ([facility]) Work Phone: [facility] Work Phone: 02-26-2011 tetanus toxoid, redu pilar diphtheria toxoid, and acellular pertussis vaccine, adsorbed Ct ([facility]) Work Phone: [facility] Work Phone: 09-21-2006 influenza virus vacc ine, unspecified formulation Ct ([facility]) Work Phone: [facility] Payers Date Payer Category Payer Medicare [id number] 2019 Private Health Insurance [employer] A ETNA MEDICARE SUPPLEMENT [id number] 2019-Present [phone] [address] [address] [place] [address] Indemnity [id number] 2019 Private Health Insurance [employer] A ETNA MEDICARE SUPPLEMENT [id number] 2019-Present [phone] [address] [address] [place] [address] Indemnity [id number] 2013 Medicare MEDICARE MEDICAR E A AND B [id number] 2013-Present [phone] [place] [address] Medicare [id number] 2013 Medicare MEDICARE MEDICAR E A AND B [id number] 2013-Present [phone] [place] [address] Medicare [id number] 2013 Medicare [id number] Social History Date Type Detail Facility Start: 1968 Tobacco smoking stat us NHIS Smokes tobacco daily [facility] Start: 1968 History of tobacco use Cigarette Smo ker [facility] Start: 02-06-2022 End: 08-29-2022 Alcohol intake Current drinker of alcohol (finding) [facility] Start: 01-07-2021 History SDOH Alcohol Comment Occasional. [facility] Start: 02-06-2022 End: 08-29-2022 Tobacco Comment 2 packs per week, 02/06/22. TO [facility] Start: 1950 Sex Assigned At Not on file C [facility] Start: 01-27-2022 End: 02-06-2022 Exposure to SARS-CoV-2 (event) Not sure [facility] Start: 08-29-2022 Cigarettes smoked cu rrent (pack per day) - Reported 0.5 [facility] Start: 08-29-2022 Tobacco use and exposure Smoke less tobacco non-user [facility] Medical Equipment Procedure Code Equipment Code Equipment Original Text Equipment Identifier Dates Start: 03-18-2011 End: 02-06-2022 Comment on above: Test twice daily as needed. Dx 250.02 Use as instructed Clinical Notes 10-10-2021 to 08-29-2022 Gladys Hawthorne MD - 08/29/2022 12:45 PM EDTPatient Shivam Fernandes MD - 02/06/2022 3:01 PM EDTRT Shayna(R) - 02/06/2022 2:00 PM EDT Note Date & Type Note Facility 08-29-2022 Note HNO ID: [id number] Author: Gladys Hawthorne MD Service: ? Author Type: Physician Type: Progress Notes Filed: 08/29/2022 8:08 PM Note Text: . [facility] [place] Patient name: Anel Esquivel PCP: Betzy Pulido MD, MD CC: Lung nodules HPI: Anel Esquivel 71 year old male current smoker for [...] DATE OF EXAM: Feb 06 2022 2:44PM [facility] 0541 - CT CHEST WO IVCON [...] suggestive of a cyst. There is cholelithiasis. Commercial Loan Coordinator (topogram) images: No additional findings. IMPRESSION: Stable [...] tolerates 1 tab twice daily with meals. [place]-3 Fatty Acids (FISH OIL) 500 mg ORAL Cap Take by mouth once daily. blood sugar diagnostic (ONE TOUCH ULTRA TEST) Misc test strip Use as instructed blood sugar diagnostic (ACCU-CHEK WILFREDO) Misc test strip Test twice daily as needed. Dx 250.02 ibuprofen (ADVIL) 200 mg ORAL tablet Take 400 mg by mouth twice daily as needed. Gilbert's Wort 300 mg ORAL Tab Take by [...] REVIEW OF SYSTEMS: (more content not included)... [facility] 08-29-2022 History of Presen t illness Narrative Images from the original note were not included. . [facility] [place] Patient name: Anel Esquivel PCP: Betzy Pulido MD, MD CC: Lung nodules HPI: Anel Esquivel 71 year old male current smoker for [...] DATE OF EXAM: Feb 06 2022 2:44PM [facility] 0541 - CT CHEST WO IVCON [...] suggestive of a cyst. There is cholelithiasis. Commercial Loan Coordinator (topogram) images: No additional findings. IMPRESSION: Stable [...] tolerates 1 tab twice daily with meals. [place]-3 Fatty Acids (FISH OIL) 500 mg ORAL Cap Take by mouth once daily. blood sugar diagnostic (ONE TOUCH ULTRA TEST) Misc test strip Use as instructed blood sugar diagnostic (ACCU-CHEK WILFREDO) Misc test strip Test twice daily as needed. Dx 250.02 ibuprofen (ADVIL) 200 mg ORAL tablet Take 400 mg by mouth twice daily as needed. Gilbert's Wort 300 mg ORAL Tab Take by [...] Normocephalic, no masses, lesions, tenderness or abnormalities. [place]/hearing aids Eyes: Sclera, conjunctiva normal Neck: No [...] smoking history Cigarette smoker -Current greater than 81-qysd-rabb smoker without sequelae COPD -Smoking cessation strongly encouraged 3. Coronary artery calcification seen on CT chest -Recommend calcium scoring CT and cardiology referral Gladys Hawthorne MD [facility] documented in this encounter [facility] 02-06-2022 Note HNO ID: [id number] Author: Alina Fernandes MD Service: ? Author Type: Physician Type: Progress Notes Filed: 02/11/2022 10:25 AM Note Text: [facility] [place], 02/06/2022: Name: Anel Esquivel : 1950 INTERVAL HISTORY: Since the 08/09/2021 [...] non-calcified.?Initially appreciated on screening CT chest at [facility] 12/12/2020. PET scan negative January,. CT [...] acceptance of my answers. Alina Fernandes MD, [facility] Ambulatory Surgery [address] [address] P: [phone] F: [phone] [email or web address] [facility] 02-06-2022 Note HNO ID: [id number] Author: RT Shayna(R) Service: ? Author Type: Personnel Psychologist Type: Progress Notes Filed: 02/06/2022 4:01 PM Note Text: Radiology Service Progress Note PATIENT NAME: Anel Esquivel DATE OF SERVICE: February 06, 2022 TIME: [...] RT Felicita(R) February 06, 2022 4:01 PM [facility] 02-06-2022 Instructions Alina Fernandes MD - 02/06/2022 3:32 PM EDT MEDICAL DECISION MAKING: Multiple subcentimeter pulmonary nodules, non-calcified. Initially appreciated on screening CT chest at [facility] 12/12/2020. PET scan negative January,. CT chest 07/22/[address] chest today also appears stable. - Surveillance CT chest in 12 months, 01/2023. Sooner if needed. Alina Fernandes MD, [facility] [facility] Amb[facility] Surgery [address] [address] P: [phone] F: [phone] [email or web address] documented in this encounter [facility] 02-06-2022 History of Presen t illness Narrative [facility] [place], 02/06/2022: Name: Anel Esquivel : 1950 INTERVAL HISTORY: Since the 08/09/2021 [...] Initially appreciated on screening CT chest at [facility] 12/12/2020. PET scan negative January,. CT [...] acceptance of my answers. Alina Fernandes MD, [facility] [place] [facility] [address] [address] P: [phone] F: [phone] [email or web address] documented in this encounter [facility] 02-06-2022 History of Presen t illness Narrative Radiology Service Progress Note PATIENT NAME: Anel Esquivel DATE OF SERVICE: February 06, 2022 TIME: [...] 2022 4:01 PM documented in this encounter [facility] 10-10-2021 Note HNO ID: [id number] Author: Shelli Manrique PA-C Service: ? Author Type: Physician Distance Education Faculty Liaison Type: Progress Notes Filed: 10/10/2021 2:51 PM Note Text: Actionable Findings Registry I am following up on this actionable finding at the direction of the [employer]. Patient was found previously to have an abnormal CT chest. Repeat CT chest was recommended and is scheduled. Will close this out of the actionable findings registry. Actionable Findings follow up status: Complete Shelli Manrique PA-C October 10, 2021 2:50 PM [facility] 10-10-2021 Note Patient Outreach (UR GDIS) ANEL ESQUIVEL ([id number]) 1950 M Date Time Provider Department 10/10/21 SHELLI MANRIQUE During your visit today, we recorded the following information about you: Shelli Manrique PA-C 10/10/2021 2:51 PM Signed Actionable Findings Registry I am following up on this actionable finding at the direction of the [employer]. Patient was found previously to have an abnormal CT chest. Repeat CT chest was recommended and is scheduled. Will close this out of the actionable findings registry. Actionable Findings follow up status: Kris Manrique PA-C October 10, 2021 2:50 PM [...] 1 tab twice daily with meals. - [place]-3 Fatty Acids (FISH OIL) 500 mg ORAL Cap Take by mouth once daily. - Lancets (ONE TOUCH ULTRASOFT LANCETS) [facility] lancets Use as instructed - blood sugar diagnostic (ONE TOUCH ULTRA TEST) Misc test strip Use as instructed - blood sugar diagnostic (ACCU-CHEK WILFREDO) Misc test strip Test twice daily as needed. Dx 250.02 - Lancets (ACCU-CHEK MULTICLIX LANCET) Misc lancets Use as instructed - ibuprofen (ADVIL) 200 mg ORAL tablet Take 400 mg by mouth twice daily as needed. - Gilbert's Wort 300 mg ORAL Tab Take by [...] Encounter Status:Closed by SHELLI MANRIQUE on 10/10/21 [facility] Evaluation note Diagnosis Lung nodules Other nonspecific abnormal finding of lung field [facility] Diagnosis Lung nodules- Primary Other nonspecific abnormal finding of lung field Chronic cough Cough Tobacco use disorder, continuous Tobacco use disorder [facility] Diagnosis Lung nodules- Primary Other nonspecific abnormal finding of lung field Cigarette smoker Tobacco use disorder Coronary artery calcification seen on CAT scan Coronary atherosclerosis of unspecified type of vessel, lumbee or graft documented in this encounter [facility] Reason for Referral Specialty Diagnoses / Procedures Referred By Contac t Referred To Contact CT IMAGING Diagnoses Lung nodules Procedures CT CHEST WO IVCON CAT SCAN OF CHEST Georgie Jarrell PA-C [address] [address] [address] Imaging Referral ID Status Reason Start Date Expiration Date V isits Requested Visits Authorized [id number] Closed Auto-Generate d Referral 02/07/2022 09/08/2022 1 1 Specialty Diagnoses / Procedures Referred By Contac t Referred To Contact CT IMAGING Diagnoses Lung nodules Procedures CT CHEST WO IVCON DIAGNOSTIC COMPUTED TOMOGRAPHY THORAX W/O CNTRST Alina Fernandes MD [address] [place] [address] Ct Imaging Referral ID Status Reason Start Date Expiration Date Visits Requested Visits Authorized [id number] Pending Review Auto-Generat ed Referral 01/26/2023 03/08/2023 1 1 Specialty Diagnoses / Procedures Referred By Contac t Referred To Contact CT IMAGING Diagnoses Lung nodules Procedures CT CHEST WO IVCON DIAGNOSTIC COMPUTED TOMOGRAPHY THORAX W/O CNTRST Gladys Hawthorne MD [address] [facility] [place] [address] Ct Imaging Referral ID Status Reason Start Date Expiration Date Visits Requested Visits Authorized [id number] Pending Review Auto-Generat ed Referral 02/06/2023 09/28/2023 [...] or prosecute any alcohol or drug abuse patient.[facility] the event this information is protected by the Federal Confidentiality of Alcohol and Drug Abuse Patient Records regulations: The Federal rules restrict any use of the information to criminally investigate or prosecute any alcohol or drug abuse patient.[facility] the event this information is protected by the Federal Confidentiality of Alcohol and Drug Abuse Patient Records regulations: The Federal rules restrict any use of the information to criminally investigate or prosecute any alcohol or drug abuse patient.[facility] Reason for Visit (unrecogniz ed section and content) Reason Comments Radiology CT Specialty Diagnoses / Procedures Referred By Lizzette dumont Referred To Contact CT IMAGING Diagnoses Lung nodules Procedures CT CHEST WO IVCON CAT SCAN OF CHEST Georgie Jarrell PA-C [address] [address] [address] Imaging Referral ID Status Reason Start Date Expiration Date V isits Requested Visits Authorized [id number] Closed Auto-Generate d Referral 02/07/2022 09/08/2022 1 1 Reason Comments Nodule Care Teams (unrecognized sec tion and content) [employer] Relationship Specialty Start Date End Date Betzy Pulido MD PCP - General Family Practice 05/27/12 [employer] Relationship Specialty Start Date End Date Betzy Pulido MD PCP - General Family Practice 05/27/12 [employer]cer Relationship Specialty Start Date End Date Betzy Pulido MD PCP - General Family Medicine 05/27/12 (unrecognized sect ion and content) No Status Records Found INFORMATION SOURCE (unrecogn ized section and content) DATE CREATED AUTHOR 09/02/2022 [facility] FOR RECORDS PERTAINING TO PATIENTS WHO ARE [...] BE BASED ON THE PRIMARY CLINICAL RECORDS. [employer] [facility]. provides no warranty or guarantee of the accuracy or completeness of information in this document.
== END 2024-09-05 23:59 | disposition home or self-care (01) ==
PROVIDERS: PCP Family Medicine; Visit Provider Family Medicine
DX: I10 Essential (primary) hypertension (principal)
CPT/HCPCS: 36415

== ENCOUNTER → 2024-09-08 | Outpatient (CLI) | payer MEDICARE, OTHER, SELFPAY ==
[2024-09-08 15:46] LABS: Anion Gap 5 (5-15); BUN 24 mg/dL (7-18); BUN/Creat Ratio 26.1 RATIO (10-20); Calcium,Total 9.3 mg/dL (8.5-10.1); Chloride 108 mmol/L (98-107); Creatinine, Serum 0.92 mg/dL (0.70-1.30); EST Glomerular Filtration Rate 85 mL/min (>60); Est Glom Filt Rate - Afr Amer 103 mL/min (>60); Glucose 99 mg/dL (74-106); Sodium Level 139 mmol/L (136-145)
== END | disposition home or self-care (01) ==
LOC: MFPLAB 12:10
PROVIDERS: PCP Family Medicine; Referring Provider Family Medicine; Visit Provider Family Medicine
DX: R60.0 Localized edema (principal)
CPT/HCPCS: 36415; 80048

== ENCOUNTER → 2024-09-14 | Outpatient (CLI) | payer MEDICARE, OTHER, SELFPAY | END | disposition home or self-care (01) | LOC: US 14:25 | PROVIDERS: PCP Family Medicine; Referring Provider Family Medicine; Visit Provider Family Medicine | DX: E05.90 Thyrotoxicosis, unspecified without thyrotoxic crisis or storm (principal) | CPT/HCPCS: 76536 ==

== ENCOUNTER 2025-04-19 11:30 | Outpatient (RCR) | payer MEDICARE, OTHER, SELFPAY ==
--- NOTE | 2025-02-15 12:25 | HP.PTEVAL_ITS ---
Patient's Visit Information Visit Information Visit Information: ANEL EHNRY is a 74 year old M referred to Physical Therapy by Dr. Peña Pulido MD with a diagnosis of Gait abnormality. Date of Evaluation: 02/15/25 Physical Therapist: LEANNA Figueroa Visit Plan Frequency: 2x /Week Duration: 3 Months Plan: 2X/ week for 12 weeks for gait training with the rolling walker and then may progress to a cane as appropriated, balance (including head turns, walking BW), turning 180 degrees, dual tasking (opp arm and leg with brain work), postural exercises, with HEP Asked pt to come in with his walker from now on as his balance is poor and his studder step Subjective Subjective: Pt has had 3-4 falls in the last few months while using the cane. He gets ahead of himself when pushing the shopping cart and a little bit with the rolling walker. Pt has stairs in his house with 1 hand rail. He goes up and down them 2 feet to a step. They live in one story home. He will walk and his feet will get stuck at times and then have to work to get his feet moving again. He has a lift chair. He struggles with steps at times. He still drives. He has some trouble getting and out of a car. He uses a rolling walker at home all of the time. He was just dx with PD yesterday and started with meds yesterday. Objective Objective: Gait: walks with straight cane with small steppage gait. He does stop every few steps and does a studder step. Had the patient walk with a rolling walker and he still has decreased step length and very slow speed. He was able to walk farther before he started to shuffle his feet or what he call his studder step. Turning 180 degrees pt takes very small steps and hard to get feet off the ground when turning LE MMT: B hip flex 4-/5 B knee ext 4/5 B knee flex 4-/5 Pt was able to go sit to supine and supine to sit indep. Sit to stand: Uses B UE but able to stand up on first attempt FGA 7 seated opp arm and leg was able to get 8 in a row before went to same side. Standing opp arm and leg with CGA he was able to get approx 5-6 in a row and then reverted back to same side. Balance/Special Test Scores Functional Gait Assessment Score: 7 % Disability: 76.6700 Lower Extremity Functional Score: 33 Goals Goal 1:: I HEP Goal Time Frame: 8-12 Weeks Goal 2:: Increase balance (FGA was 7 at eval) Goal Time Frame: 8-12 Weeks Goal 3:: Be able to walk BW with normal step length without retro LOB Goal Time Frame: 8-12 Weeks Goal 4:: Be able to push the grocery cart in the store without it running away in front of him Goal Time Frame: 8-12 Weeks Goal 5:: Be able to Walk 1 full lap around the inside of building with rolling walker with no disruption to gait with CGA Goal Time Frame: 8-12 Weeks Goal 6:: Be able to turn 180 degrees with picking his feet up with CGA Goal Time Frame: 8-12 Weeks Rehabilitation Potential Rehabilitation Potential: Good Anticipated Interventions Patient/Client Instruction: Educate patient on: Condition and Plan of Care For the Purpose of:: To increase ROM, To increase oxygenation perfusion, To improve muscle performance and motor function, To improve ability to perform ADL's, To increase tolerance to activity/condition/position, To improve performance and independence with ADL's, To decrease level of supervision to perform tasks, To improve ability of physical actions for home/com munity/work/leisure, To improve gait and locomotor functions, To increase flexibility/ROM, To improve endurance, To improve balance and To improve safety with gait Therapeutic Exercise to Include: Strength training, Endurance training, Balance training, Postural training, Flexibilty training, Gait and locomotor training, Neuromotor development, Passive ROM and Active ROM For the Purpose of:: To decrease pain, To decrease swelling/inflammation, To increase ROM, To improve nutrient delivery to tissue, To increase oxygenation perfusion, To improve muscle performance and motor function, To improve ability to perform ADL's, To increase tolerance to activity/condition/position, To improve performance and independence with ADL's, To decrease level of supervision to perform tasks, To improve ability of physical actions for home/community/work/leisure, To improve gait and locomotor functions, To improve health of tissue, To decrease soft tissue restriction, To increase flexibility/ROM, To improve endurance, To improve balance and To improve safety with gait Functional Training to Include: Gait training For the Purpose of:: To improve gait and locomotor functions and To improve safety with gait Text: Thank you for the opportunity to evaluate your patient. For Medicare and Medicare HMO plans, please review the plan of care and approve it. It will need to be FAXED BACK to us at [phone] for Medicare purposes. For Medicare only, by signing this I certify the plan of care. Please let me know if there are questions or concerns regarding this plan of care. Physician Signature: Date:
--- NOTE | 2025-03-15 15:07 | HP.PTREVAL ---
Re-Evaluation Intro: Dr. Peña Pulido MD, It has been my pleasure to treat ANEL HENRY over the last 9 visits for Gait abnormality. Please see the progress note below for an update on the physical therapy plan of care! Subjective Subjective: Pt reports that he thinks he is walking a little better but his progress comes and goes. He has trouble pushing the cart in [facility] and had to get a worker get him and motorized cart to get through the rest of the store due to being tired Objective Objective/Function: Gait: walked 277 feet in 4 min and 25 seconds with rolling walker with very short strides FGA: 9 Pt is able to walk BW with bigger steps when holding onto the hallway chair rail with CGA Plan Plan Plan: Work on walking with the rollator to simulate pushing a grocery cart that likes to get away from him, work on turning, gait training with bigger steps, 2X/ week for 12 weeks for gait training with the rolling walker and then may progress to a cane as appropriated, balance (including head turns, walking BW), turning 180 degrees, dual tasking (opp arm and leg with brain work), postural exercises, with HEP Asked pt to come in with his walker from now on as his balance is poor and his studder step Balance/Gait/Functional tests Balance/Special Test Scores Functional Gait Assessment Score: 9 % Disability: 70.0000 Lower Extremity Functional Score: 35 Goals Goals Goal 1:: I HEP Goal Time Frame: 8-12 Weeks Goal 2:: Increase balance (FGA was 7 at eval) Goal Time Frame: 8-12 Weeks Goal Progress: Progressing Goal 3:: Be able to walk BW with normal step length without retro LOB Goal Time Frame: 8-12 Weeks Goal Progress: Progressing Goal 4:: Be able to push the grocery cart in the store without it running away in front of him Goal Time Frame: 8-12 Weeks Goal 5:: Be able to Walk 1 full lap around the inside of building with rolling walker with no disruption to gait with CGA Goal Time Frame: 8-12 Weeks Goal Progress: Progressing Goal 6:: Be able to turn 180 degrees with picking his feet up with CGA Goal Time Frame: 8-12 Weeks Anticipated Interventions Anticipated Interventions Patient/Client Instruction: Educate patient on: Condition and Plan of Care For the Purpose of:: To increase ROM, To increase oxygenation perfusion, To improve muscle performance and motor function, To improve ability to perform ADL's, To increase tolerance to activity/condition/position, To improve performance and independence with ADL's, To decrease level of supervision to perform tasks, To improve ability of physical actions for home/community/work/leisure, To improve gait and locomotor functions, To increase flexibility/ROM, To improve endurance, To improve balance and To improve safety with gait Therapeutic Exercise to Include: Strength training, Endurance training, Balance training, Postural training, Flexibilty training, Gait and locomotor training, Neuromotor development, Passive ROM and Active ROM For the Purpose of:: To decrease pain, To decrease swelling/inflammation, To increase ROM, To improve nutrient delivery to tissue, To increase oxygenation perfusion, To improve muscle performance and motor function, To improve ability to perform ADL's, To increase tolerance to activity/condition/position, To improve performance and independence with ADL's, To decrease level of supervision to perform tasks, To improve ability of physical actions for home/community/work/leisure, To improve gait and locomotor functions, To improve health of tissue, To decrease soft tissue restriction, To increase flexibility/ROM, To improve endurance, To improve balance and To improve safety with gait Functional Training to Include: Gait training For the Purpose of:: To improve gait and locomotor functions and To improve safety with gait Re-Evaluation Ending Re-evaluation ending: Please do not hesitate to contact me at [phone] by phone or if you have questions or concerns regarding this new plan of care! Sincerely, LEANNA Figueroa
--- NOTE | 2025-04-19 12:05 | HP.PTDCSUM ---
Discharge Summary D/C summary: It has been my pleasure to treat ANEL HENRY referred by Dr. Peña Pulido MD, with the diagnosis of Gait abnormality for a total of 15 visit(s). Discharge Date: 04/19/25 Please see the following information for a summary of their discharge status. Subjective Subjective: Pt reports that he still has some trouble with steps. He has steps on his back porch and has a railing. He has had no recent falls. He uses the walker all the time. Pt reports that his balance Pain LBP: Pain Intensity (Out of 10): 2 Overall Improvement % Improvement: 40 Objective Objective/Function: Gait: walks with short stride length and slow pace. FGA 9 He still has to be reminded to take a bigger step to turn 180 degrees but it is imroved. Goals Goal 1:: I HEP Goal 2:: Increase balance (FGA was 7 at eval) Goal Progress: Progressing Goal 3:: Be able to walk BW with normal step length without retro LOB Goal Progress: Not Progressing Goal 4:: Be able to push the grocery cart in the store without it running away in front of him Goal Progress: Not Progressing Goal 5:: Be able to Walk 1 full lap around the inside of building with rolling walker with no disruption to gait with CGA Goal Progress: Goal Met Goal 6:: Be able to turn 180 degrees with picking his feet up with CGA Goal Progress: Progressing Plan Plan: DC PT at this time. His will be having surgery. He has not made huge gains this round of PT. D/C Information Discharge Comments: DC PT d/c sentence: If there are questions or concerns regarding this patient's physical therapy, please feel free to call me at [phone]. Thank you for the referral of this patient. Sincerely, Soumya Hsu, MPT Balance/Gait/Functional tests Balance/Special Test Scores Functional Gait Assessment Score: 9 % Disability: 70.0000 Lower Extremity Functional Score: 41 Improvement % Improvement: 40
== END 2025-04-19 12:42 | disposition home or self-care (01) ==
LOC: PT 11:30
PROVIDERS: PCP Family Medicine; Visit Provider Family Medicine
DX: R26.81 Unsteadiness on feet (principal); R26.89 Other abnormalities of gait and mobility
CPT/HCPCS: 97110; 97116; 97161; 97530